=== PATIENT | female | born 1985 | race Caucasian/White ===

== ENCOUNTER 2016-10-27 11:49 | Emergency (ER) | payer OTHER ==
[2016-10-27 11:55] VITALS: TEMP 98
--- NOTE | 2016-10-27 12:12 | ED ---
URI HPI - General Chief Complaint: Upper Respiratory Infection Stated Complaint: congestion Time Seen by Provider: 10/27/16 11:56 Source: patient, RN notes reviewed Mode of arrival: ambulatory Limitations: no limitations - History of Present Illness Initial Comments: 31-year-old female presents emergency Department chief complaint sinus congestion, cough just discharged last few days. Patient states it's getting worse. Denies fever, chills. Patient states she does have seasonal ALLERGIES but states this feels worse. Denies any sick contacts. No [id number] cold cough and cold medications. Patient also complains of left leg swelling. She states has been present last week. She states she's had swelling in the past but this is worse. Patient denies any pleuritic chest pain denies any pain to her calf. - Related Data Home Medications Medication Instructions Recorded Confirmed Acetaminophen Tab [Tylenol] 650 mg PO Q6H PRN 04/09/16 10/27/16 Ibuprofen [Motrin] 400 mg PO Q6HR PRN 10/27/16 10/27/16 Loratadine [Claritin] 10 mg PO DAILY 10/27/16 10/27/16 Sodium Chloride [[place]] 1 spray EA NOSTRIL DAILY PRN 10/27/16 10/27/16 Allergies Allergy/AdvReac Type Severity Reaction Status Date / Time succinylcholine Allergy Unknown Verified 10/27/16 12:15 [Succinylcholine] Review of Systems ROS Statement: Those systems with pertinent positive or pertinent negative responses have been documented in the HPI. ROS Other: All systems not noted in ROS Statement are negative. Past Medical History Past Medical History: No Reported History Additional Past Medical History / Comment(s): MIGRAINE, BACK PAIN; POSSIBLE PROLAPSED BLADDER History of Any Multi-Drug Resistant Organisms: None Reported Additional Past Surgical History / Comment(s): MYRINGOTOMY, SINUS SURGERY, LEEP , COLPOSCOPY, OVARIAN CYST SURGERY Past Anesthesia/Blood Transfusion Reactions: Previous Problems w/ Anesthesia Additional Past Anesthesia/Blood Transfusion Reaction / Comment(s): reaction to succinylcholine Past Psychological History: No Psychological Hx Reported Smoking Status: Current every day smoker Past Alcohol Use History: Occasional Past Drug Use History: None Reported General Exam Limitations: no limitations General appearance: alert, in no apparent distress Head exam: Present: atraumatic, normocephalic, normal inspection ENT exam: Present: normal exam, mucous membranes moist. Absent: normal oropharynx (Postnasal drainage) Neck exam: Present: normal inspection. Absent: tenderness, meningismus, lymphadenopathy Respiratory exam: Present: normal lung sounds bilaterally (post). Absent: respiratory distress, wheezes, rales, rhonchi, stridor Cardiovascular Exam: Present: regular rate, normal rhythm, normal heart sounds. Absent: systolic murmur, diastolic murmur, rubs, gallop, clicks Extremities exam: Present: other (Left leg edema noted, pedal pulses equal bilaterally +2 minimal Tenderness) Neurological exam: Present: alert Skin exam: Present: warm, dry, intact, normal color. Absent: rash Course Vital Signs 10/27/16 10/27/16 11:52 12:03 Temperature 98 F Pulse Rate 100 Respiratory 16 16 Rate Blood Pressure 160/93 O2 Sat by Pulse 100 Oximetry Medical Decision Making - Medical Decision Making 31-year-old female presents emergency Department with chief complaint of cough and cold like symptoms, left leg swelling. There is no acute DVT on ultrasound. Patient will be advised to wear compression stockings. Patient has a of upper respiratory infection there is no signs for bacterial infection of this time. Patient be advised also takes something for her sinus congestion such as Sudafed and Claritin. Return parameters were discussed. Disposition Clinical Impression: Upper respiratory infection, Swelling of left lower extremity Disposition: HOME SELF-CARE Condition: Stable Instructions: Upper Respiratory Infection (ED) Additional Instructions: Were compression stockings as directed for your leg swelling. Take over-the- counter cough and cold medications for your upper extremity infection.Please return to the Emergency Department if symptoms worsen or any other concerns. Time of Disposition: 13:06
--- NOTE | 2016-10-27 12:20 | XR ---
EXAMINATION TYPE: XR chest 2V DATE OF EXAM: 10/27/2016 12:16 PM COMPARISON: NONE HISTORY: Chest pain and congestion for one day. TECHNIQUE: Frontal and lateral views of the chest are obtained. FINDINGS: There is no focal air space opacity, pleural effusion, or pneumothorax seen. The cardiac silhouette size is within normal limits. The osseous structures are intact. IMPRESSION: No acute cardiopulmonary process.
--- NOTE | 2016-10-27 13:10 | US ---
EXAMINATION TYPE: US venous doppler duplex LE LT DATE OF EXAM: 10/27/2016 12:58 PM COMPARISON: NONE CLINICAL HISTORY: Pain. SIDE PERFORMED: Left TECHNIQUE: The lower extremity deep venous system is examined utilizing real time linear array sonog zachary with graded compression, doppler sonography and color-flow sonography. VESSELS IMAGED: External Iliac Vein (EIV) Common Femoral Vein Deep Femoral Vein Greater Saphenous Vein * Femoral Vein Popliteal Vein Small Saphenous Vein * Proximal Calf Veins (* superficial vessels) No popliteal fossa lesion is seen. Left Leg: Negative for DVT IMPRESSION: THIS EXAMINATION IS NEGATIVE FOR DVT WITHIN THE LEFT LEG.
[2016-10-27 13:41] VITALS: BP 130/85; PULSE 78; RESP 18
== END 2016-10-27 13:40 | disposition home or self-care (01) ==
LOC: EC 11:49
DX: J06.9 Acute upper respiratory infection, unspecified (principal); M79.89 Other specified soft tissue disorders; F17.200 Nicotine dependence, unspecified, uncomplicated; Z88.8 Allergy status to other drugs, medicaments and biological substances; Z79.899 Other long term (current) drug therapy
CPT/HCPCS: 71020; 99284

== ENCOUNTER 2017-09-18 15:30 | Emergency (ER) | payer OTHER ==
[2017-09-18 17:20] LABS: Basophils % (A) 0 %; Eosinophils # (A) 0.1 k/uL (0-0.7); Eosinophils % (A) 1 %; HCT 38.3 % (34.0-46.0); HGB 12.5 gm/dL (11.4-16.0); Lymphocytes # (A) 2.1 k/uL (1.0-4.8); Lymphocytes % (A) 17 %; MCHC 32.6 g/dL (31.0-37.0); MCV 98.1 fL (80.0-100.0); Mean Platelet Volume 7.9; Monocytes # (A) 0.5 k/uL (0-1.0); Monocytes % (A) 4 %; Neutrophils % (A) 78 %; Platelet Count 341 k/uL (150-450); RDW 12.2 % (11.5-15.5); WBC 12.9 k/uL (3.8-10.6)
--- NOTE | 2017-09-18 17:33 | ED ---
Skin/Abscess/FB HPI - General Chief complaint: Skin/Abscess/Foreign Body Stated complaint: Foot pain Time Seen by Provider: 09/18/17 16:27 Source: patient, RN notes reviewed Mode of arrival: ambulatory Limitations: no limitations - History of Present Illness Initial comments: 32-year-old female presents emergency Department chief complaint of redness, swelling and pain to her left leg. Patient states that she had a blister opened up 2 weeks ago but states last few days she has noticed increased redness swelling and discomfort. She states that her left calf to her left foot region has swelling there is severe redness to the blister on the back of her heel. She states that she called her doctor and has an appointment next week and was given a prescription over the phone though when filling the prescription the pharmacist recommends patient go to the Emergency department. Denies any prior history of DVT. Denies any chest pain or shortness of breath. No known fevers or chills. - Related Data Home Medications Medication Instructions Recorded Confirmed Topiramate [Topamax] 50 mg PO BID 06/01/17 09/18/17 Ibuprofen [Motrin Ib] 800 mg PO Q6H PRN 09/18/17 09/18/17 Previous Rx's Medication Instructions Recorded Cephalexin [Keflex] 500 mg PO Q6HR #40 cap 09/18/17 Allergies Allergy/AdvReac Type Severity Reaction Status Date / Time pineapple Allergy Unknown Verified 09/18/17 16:30 succinylcholine Allergy Unknown Verified 09/18/17 16:30 [Succinylcholine] Review of Systems ROS Statement: Those systems with pertinent positive or pertinent negative responses have been documented in the HPI. ROS Other: All systems not noted in ROS Statement are negative. Past Medical History Past Medical History: No Reported History Additional Past Medical History / Comment(s): MIGRAINE, BACK PAIN; POSSIBLE PROLAPSED BLADDER, ectopic History of Any Multi-Drug Resistant Organisms: None Reported Past Surgical History: Ear Surgery, Tubal Ligation Additional Past Surgical History / Comment(s): MYRINGOTOMY, SINUS SURGERY, LEEP , OVARIAN CYST SURGERY, Past Anesthesia/Blood Transfusion Reactions: Previous Problems w/ Anesthesia Additional Past Anesthesia/Blood Transfusion Reaction / Comment(s): reaction to succinylcholine Past Psychological History: No Psychological Hx Reported Smoking Status: Current every day smoker Past Alcohol Use History: Occasional Past Drug Use History: None Reported General Exam Limitations: no limitations General appearance: alert, in no apparent distress Head exam: Present: atraumatic, normocephalic, normal inspection Respiratory exam: Present: normal lung sounds bilaterally. Absent: respiratory distress, wheezes, rales, rhonchi, stridor Cardiovascular Exam: Present: regular rate, normal rhythm, normal heart sounds. Absent: systolic murmur, diastolic murmur, rubs, gallop, clicks Extremities exam: Present: other (There is swelling noted of the left leg, pedal pulses equal bilaterally, there is moderate swelling primarily of the left foot there is erythema around open wound of her left heel that extends to her foot and distal leg region) Skin exam: Present: warm, dry Course Vital Signs 09/18/17 09/18/17 16:14 18:18 Temperature 98.3 F Pulse Rate 99 87 Respiratory 16 18 Rate Blood Pressure 168/88 120/80 O2 Sat by Pulse 100 97 Oximetry Medical Decision Making - Medical Decision Making 32-year-old female presented emergency Department chief complaint of left leg swelling, redness. Patient's symptoms started last few days with redness and swelling. Patient patient does have minimal leukocytosis no evidence of osteomyelitis. Patient we treated for cellulitis at this time is DVT is negative. Patient was given IV Imitrex emergency Department discharge on Keflex. Return parameters were discussed. - Lab Data Result diagrams: 09/18/17 17:00 09/18/17 17:00 Lab Results 09/18/17 09/18/17 09/18/17 Range/Units 17:00 17:00 17:00 WBC 12.9 H (3.8-10.6) k/uL RBC 3.90 (3.80-5.40) m/uL Hgb 12.5 (11.4-16.0) gm/dL Hct 38.3 (34.0-46.0) % MCV 98.1 (80.0-100.0) fL MCH 32.0 (25.0-35.0) pg MCHC 32.6 (31.0-37.0) g/dL RDW 12.2 (11.5-15.5) % Plt Count 341 (150-450) k/uL Neutrophils % 78 % Lymphocytes % 17 % Monocytes % 4 % Eosinophils % 1 % Basophils % 0 % Neutrophils # 10.0 H (1.3-7.7) k/uL Lymphocytes # 2.1 (1.0-4.8) k/uL Monocytes # 0.5 (0-1.0) k/uL Eosinophils # 0.1 (0-0.7) k/uL Basophils # 0.0 (0-0.2) k/uL Sodium 141 (137-145) mmol/L Potassium 3.6 (3.5-5.1) mmol/L Chloride 108 H (98-107) mmol/L Carbon Dioxide 21 L (22-30) mmol/L Anion Gap 12 mmol/L BUN 14 (7-17) mg/dL Creatinine 0.70 (0.52-1.04) mg/dL Est GFR (CKD-EPI)AfAm >90 (>60 ml/min/1.73 sqM) Est GFR (CKD-EPI)NonAf >90 (>60 ml/min/1.73 sqM) Glucose 77 (74-99) mg/dL Plasma Lactic Acid Luis 0.5 L (0.7-2.0) mmol/L Calcium 9.3 (8.4-10.2) mg/dL Total Bilirubin 0.3 (0.2-1.3) mg/dL AST 16 (14-36) U/L ALT 23 (9-52) U/L Alkaline Phosphatase 47 (38-126) U/L C-Reactive Protein 59.3 H (<10.0) mg/L Total Protein 6.9 (6.3-8.2) g/dL Albumin 4.2 (3.5-5.0) g/dL Disposition Clinical Impression: Cellulitis Disposition: HOME SELF-CARE Condition: Stable Instructions: Cellulitis (ED) Additional Instructions: Please return to the Emergency Department if symptoms worsen or any other concerns. Prescriptions: Cephalexin [Keflex] 500 mg PO Q6HR #40 cap Referrals: Lucero Hugo MD [Primary Care Provider] - 1-2 days Time of Disposition: 19:03
[2017-09-18 17:39] LABS: ALT 23 U/L (9-52); AST 16 U/L (14-36); Albumin 4.2 g/dL (3.5-5.0); Alkaline Phosphatase 47 U/L (38-126); Anion Gap 12 mmol/L; Blood Urea Nitrogen 14 mg/dL (7-17); C Reactive Protein 59.3 mg/L (<10.0); Calcium 9.3 mg/dL (8.4-10.2); Carbon Dioxide 21 mmol/L (22-30); Chloride 108 mmol/L (98-107); Glucose 77 mg/dL (74-99); Potassium 3.6 mmol/L (3.5-5.1); Sodium 141 mmol/L (137-145); Total Bilirubin 0.3 mg/dL (0.2-1.3); Total Protein 6.9 g/dL (6.3-8.2)
--- NOTE | 2017-09-18 17:46 | XR ---
PROCEDURE: XR ankle complete LT - 3V DATE AND TIME: 09/18/2017 5:34 PM REFERRING PHYSICIAN: Domingo Chang CLINICAL INDICATION: PHH, Pain TECHNIQUE: Department protocol. COMPARISON: None FINDINGS: Bones and joints are unremarkable. Soft tissue swelling is noted laterally. IMPRESSION: Negative for fracture or malalignment.
[2017-09-18] MEDS ORDERED: HYDROcodone/APAP 5-325MG 1 EACH TAB PO STA (18:12)
[2017-09-18 18:19] VITALS: RESP 18
--- NOTE | 2017-09-18 18:43 | US ---
EXAMINATION TYPE: US venous doppler duplex LE LT DATE OF EXAM: 09/18/2017 6:08 PM COMPARISON: NONE CLINICAL HISTORY: Pain. Edema and pain left foot. Infection left foot from a blister for 2-3 days SIDE PERFORMED: Left TECHNIQUE: The lower extremity deep venous system is examined utilizing real time linear array sonog zachary with graded compression, doppler sonography and color-flow sonography. VESSELS IMAGED: External Iliac Vein (EIV) Common Femoral Vein Deep Femoral Vein Greater Saphenous Vein * Femoral Vein Popliteal Vein Small Saphenous Vein * Proximal Calf Veins (* superficial vessels) FINDINGS: Grayscale, color doppler, spectral doppler imaging performed of the deep veins of the lower extremiti es. There is normal flow, compressibility, vascular waveforms. IMPRESSION: NEGATIVE FOR DVT LEFT LOWER EXTREMITY.
[2017-09-18] MEDS ORDERED: ceFAZolin IN SWFI 2 GM/20 ML SYRINGE IVP STA (19:01)
[2017-09-18 19:48] VITALS: BP 128/80; PULSE 88; TEMP 98.5
== END 2017-09-18 19:50 | disposition home or self-care (01) ==
LOC: EC 15:30
DX: L03.116 Cellulitis of left lower limb (principal); F17.200 Nicotine dependence, unspecified, uncomplicated; Z86.69 Personal history of other diseases of the nervous system and sense organs; Z79.899 Other long term (current) drug therapy; Z91.018 Allergy to other foods; Z88.4 Allergy status to anesthetic agent
CPT/HCPCS: 99284; 96374; 36415; 80053; 83605; 85025; 86140; 87040; 87070; 87205; 87077; 87186; 73610; 93971; J0690

== ENCOUNTER → 2017-10-08 | Outpatient (CLI) | payer OTHER | END | disposition home or self-care (01) | LOC: RADUSWWP 13:25 | PROVIDERS: ATTEND Internal Medicine | DX: M79.605 Pain in left leg (principal) | CPT/HCPCS: 93923 ==

== ENCOUNTER → 2018-03-29 | Outpatient (CLI) | payer OTHER ==
--- NOTE | 2018-03-29 15:49 | XR ---
EXAMINATION TYPE: XR chest 2V DATE OF EXAM: 03/29/2018 COMPARISON: 10/27/2016 HISTORY: Chest pain TECHNIQUE: Frontal and lateral views of the chest are obtained. FINDINGS: There is no focal air space opacity. No evidence for pneumothorax. No pleural effusion. The cardiac silhouette size is within normal limits. The osseous structures are grossly intact. IMPRESSION: 1. No acute cardiopulmonary process.
== END | disposition home or self-care (01) ==
LOC: RADXRYALE 15:23
PROVIDERS: ATTEND Internal Medicine
DX: J20.9 Acute bronchitis, unspecified (principal)
CPT/HCPCS: 71046

== ENCOUNTER 2018-04-08 09:46 | Emergency (ER) | payer OTHER ==
[2018-04-08 09:56] VITALS: RESP 18
[2018-04-08] MEDS ORDERED: SODIUM CHLORIDE 0.9% 500 ML IV STA (11:03)
[2018-04-08] MEDS ORDERED: ONDANSETRON 4 MG/2 ML VIAL IVP STA (11:03)
--- NOTE | 2018-04-08 11:11 | ED ---
General Adult HPI - General Chief complaint: Abdominal Pain Stated complaint: Abd pain Source: patient Mode of arrival: ambulatory Limitations: no limitations - History of Present Illness Initial comments: Dictation was produced using [employer] dictation software. please excuse any grammatical, word or spelling errors. Chief Complaint: 32-year-old female past medical history of irregular menstrual cycles, migraine headaches presents with bilateral suprapubic pain. History of Present Illness: Patient is a 32-year-old female. She has a past medical history of ectopic requiring expiratory laparotomy. She presents today with 2 days of bilateral suprapubic pain. She states the pain is worse on her left. Patient has nausea but no vomiting. She states that she is having regular bowel movements. Patient has a past medical history of ectopic . Denies any history of STD. She has had a ablation procedure for her irregular periods. Denies any constitutional symptoms. Patient is unsure if she is or not. Pain is not exacerbated with certain decubitus positions. The ROS documented in this emergency department record has been reviewed and confirmed by me. Those systems with pertinent positive or negative responses have been documented in the HPI. All other systems are other negative and/or noncontributory. - Related Data Home Medications Medication Instructions Recorded Confirmed Topiramate [Topamax] 100 mg PO BID 04/08/18 04/08/18 Previous Rx's Medication Instructions Recorded RX: traMADol HCL [Ultram] 50 mg PO Q6HR PRN 3 Days #12 tab 04/08/18 Allergies Allergy/AdvReac Type Severity Reaction Status Date / Time pineapple Allergy Unknown Verified 04/08/18 11:33 succinylcholine Allergy Unknown Verified 04/08/18 11:33 [Succinylcholine] Review of Systems ROS Statement: Those systems with pertinent positive or pertinent negative responses have been documented in the HPI. ROS Other: All systems not noted in ROS Statement are negative. Past Medical History Past Medical History: No Reported History Additional Past Medical History / Comment(s): MIGRAINE, BACK PAIN; POSSIBLE PROLAPSED BLADDER, ectopic History of Any Multi-Drug Resistant Organisms: MRSA Date of last positivie culture/infection: 10/2017 MDRO Source:: left leg wound Past Surgical History: Ear Surgery, Tubal Ligation Additional Past Surgical History / Comment(s): MYRINGOTOMY, SINUS SURGERY, LEEP , OVARIAN CYST SURGERY, Past Anesthesia/Blood Transfusion Reactions: Previous Problems w/ Anesthesia Additional Past Anesthesia/Blood Transfusion Reaction / Comment(s): reaction to succinylcholine Past Psychological History: No Psychological Hx Reported Smoking Status: Current every day smoker Past Alcohol Use History: Daily Past Drug Use History: None Reported General Exam - General Exam Comments Initial Comments: PHYSICAL EXAM: General Impression: Alert and oriented x3, not in acute distress HEENT: Normocephalic atraumatic, extra-ocular movements intact, pupils equal and reactive to light bilaterally, mucous membranes moist. Cardiovascular: Heart regular rate and rhythm, S1&S2 audible, no murmurs, rubs or gallops Chest: Lungs clear to auscultation bilaterally, no rhonchi, no wheeze, no rales Abdomen: Bowel sounds present, abdomen soft, mild tenderness to the bilateral lower quadrants, non-distended, no organomegaly Musculoskeletal: Pulses present and equal in all extremities, no peripheral edema Motor: Power 5/5 bilaterally, no focal deficits noted Neurological: CN II-XII grossly intact, no focal motor or sensory deficits noted Skin: Intact with no visualized rashes Psych: Normal affect and mood Limitations: no limitations Course Vital Signs 04/08/18 09:53 Temperature 98.2 F Pulse Rate 106 H Respiratory 18 Rate Blood Pressure 157/103 O2 Sat by Pulse 100 Oximetry Medical Decision Making - Medical Decision Making 32-year-old female with past medical history of ectopic , ovarian cyst, uterine ablation procedure presents with pelvic pain. Vital signs shows tachycardia 106, rest vital signs within acceptable limits. Lab data evaluation obtained. Mild leukocytosis of 11.6. Metabolic panel shows no acute processes. Urinalysis is negative. Urine is negative. Transvaginal ultrasound was obtained showing 4 cm complex left ovarian cyst. Pelvic exam shows mild adnexal tenderness to the left adnexa. No cervical motion or right adnexal tenderness. Patient advised to follow-up follow-up with enterprise software developer upon discharge. Patient given prescription for tramadol for her pain symptoms. Patient understandable agreeable to plan. - Lab Data Result diagrams: 04/08/18 12:04 04/08/18 12:04 Lab Results 04/08/18 04/08/18 04/08/18 Range/Units 12:04 12:04 12:04 WBC 11.6 H (3.8-10.6) k/uL RBC 4.06 (3.80-5.40) m/uL Hgb 13.8 (11.4-16.0) gm/dL Hct 40.6 (34.0-46.0) % MCV 100.0 (80.0-100.0) fL MCH 33.9 (25.0-35.0) pg MCHC 33.9 (31.0-37.0) g/dL RDW 13.0 (11.5-15.5) % Plt Count 411 (150-450) k/uL Neutrophils % 66 % Lymphocytes % 25 % Monocytes % 6 % Eosinophils % 2 % Basophils % 0 % Neutrophils # 7.6 (1.3-7.7) k/uL Lymphocytes # 2.9 (1.0-4.8) k/uL Monocytes # 0.7 (0-1.0) k/uL Eosinophils # 0.2 (0-0.7) k/uL Basophils # 0.1 (0-0.2) k/uL Sodium 141 (137-145) mmol/L Potassium 4.2 (3.5-5.1) mmol/L Chloride 110 H (98-107) mmol/L Carbon Dioxide 23 (22-30) mmol/L Anion Gap 8 mmol/L BUN 13 (7-17) mg/dL Creatinine 0.72 (0.52-1.04) mg/dL Est GFR (CKD-EPI)AfAm >90 (>60 ml/min/1.73 sqM) Est GFR (CKD-EPI)NonAf >90 (>60 ml/min/1.73 sqM) Glucose 91 (74-99) mg/dL Calcium 9.3 (8.4-10.2) mg/dL Total Bilirubin 0.4 (0.2-1.3) mg/dL AST 24 (14-36) U/L ALT 26 (9-52) U/L Alkaline Phosphatase 41 (38-126) U/L Total Protein 7.1 (6.3-8.2) g/dL Albumin 4.3 (3.5-5.0) g/dL Lipase 201 (23-300) U/L Urine Color Urine Appearance (Clear) Urine pH (5.0-8.0) Ur Specific [place] (1.001-1.035) Urine Protein (Negative) Urine Glucose (UA) (Negative) Urine Ketones (Negative) Urine Blood (Negative) Urine Nitrite (Negative) Urine Bilirubin (Negative) Urine Urobilinogen (<2.0) mg/dL Ur Leukocyte Esterase (Negative) Urine HCG, Qual Not Detected (Not Detectd) 04/08/18 Range/Units 12:04 WBC (3.8-10.6) k/uL RBC (3.80-5.40) m/uL Hgb (11.4-16.0) gm/dL Hct (34.0-46.0) % MCV (80.0-100.0) fL MCH (25.0-35.0) pg MCHC (31.0-37.0) g/dL RDW (11.5-15.5) % Plt Count (150-450) k/uL Neutrophils % % Lymphocytes % % Monocytes % % Eosinophils % % Basophils % % Neutrophils # (1.3-7.7) k/uL Lymphocytes # (1.0-4.8) k/uL Monocytes # (0-1.0) k/uL Eosinophils # (0-0.7) k/uL Basophils # (0-0.2) k/uL Sodium (137-145) mmol/L Potassium (3.5-5.1) mmol/L Chloride (98-107) mmol/L Carbon Dioxide (22-30) mmol/L Anion Gap mmol/L BUN (7-17) mg/dL Creatinine (0.52-1.04) mg/dL Est GFR (CKD-EPI)AfAm (>60 ml/min/1.73 sqM) Est GFR (CKD-EPI)NonAf (>60 ml/min/1.73 sqM) Glucose (74-99) mg/dL Calcium (8.4-10.2) mg/dL Total Bilirubin (0.2-1.3) mg/dL AST (14-36) U/L ALT (9-52) U/L Alkaline Phosphatase (38-126) U/L Total Protein (6.3-8.2) g/dL Albumin (3.5-5.0) g/dL Lipase (23-300) U/L Urine Color Light Yellow Urine Appearance Clear (Clear) Urine pH 7.0 (5.0-8.0) Ur Specific [place] 1.008 (1.001-1.035) Urine Protein Negative (Negative) Urine Glucose (UA) Negative (Negative) Urine Ketones Negative (Negative) Urine Blood Negative (Negative) Urine Nitrite Negative (Negative) Urine Bilirubin Negative (Negative) Urine Urobilinogen <2.0 (<2.0) mg/dL Ur Leukocyte Esterase Negative (Negative) Urine HCG, Qual (Not Detectd) Disposition Clinical Impression: Ovarian cyst Disposition: HOME SELF-CARE Condition: Good Prescriptions: RX: traMADol HCL [Ultram] 50 mg PO Q6HR PRN 3 Days #12 tab PRN Reason: Pain Is patient prescribed a controlled substance at d/c from ED?: Yes If prescribed controlled substance>3 days was MAPS reviewed?: Prescribed <3 Days Referrals: Lucero Hugo MD [Primary Care Provider] - 1-2 days Time of Disposition: 14:13
[2018-04-08] MEDS ORDERED: MORPHINE SULFATE 4 MG/ML SYRINGE IVP STA (12:06)
[2018-04-08 12:29] LABS: Basophils # (A) 0.1 k/uL (0-0.2); Basophils % (A) 0 %; Eosinophils # (A) 0.2 k/uL (0-0.7); Eosinophils % (A) 2 %; HCT 40.6 % (34.0-46.0); HGB 13.8 gm/dL (11.4-16.0); Lymphocytes # (A) 2.9 k/uL (1.0-4.8); Lymphocytes % (A) 25 %; MCH 33.9 pg (25.0-35.0); MCHC 33.9 g/dL (31.0-37.0); Mean Platelet Volume 7.2; Monocytes # (A) 0.7 k/uL (0-1.0); Monocytes % (A) 6 %; Neutrophils # (A) 7.6 k/uL (1.3-7.7); Neutrophils % (A) 66 %; Platelet Count 411 k/uL (150-450); RBC 4.06 m/uL (3.80-5.40); WBC 11.6 k/uL (3.8-10.6)
[2018-04-08 12:37] LABS: ALT 26 U/L (9-52); AST 24 U/L (14-36); Albumin 4.3 g/dL (3.5-5.0); Alkaline Phosphatase 41 U/L (38-126); Anion Gap 8 mmol/L; Blood Urea Nitrogen 13 mg/dL (7-17); Calcium 9.3 mg/dL (8.4-10.2); Carbon Dioxide 23 mmol/L (22-30); Chloride 110 mmol/L (98-107); Glucose 91 mg/dL (74-99); Lipase 201 U/L (23-300); Potassium 4.2 mmol/L (3.5-5.1); Sodium 141 mmol/L (137-145); Total Bilirubin 0.4 mg/dL (0.2-1.3); Total Protein 7.1 g/dL (6.3-8.2)
[2018-04-08 12:38] LABS: Appearance,Urine Clear (Clear); Bilirubin,Urine Negative (Negative); Blood,Urine Negative (Negative); Color,Urine Light Yellow; Glucose,Urine (UA) Negative (Negative); Ketones,Urine Negative (Negative); Leukocyte Esterase,Urine Negative (Negative); Nitrite,Urine Negative (Negative); Protein,Urine Negative (Negative); Specific Gravity,Urine 1.008 (1.001-1.035); Urobilinogen,Urine <2.0 mg/dL (<2.0)
--- NOTE | 2018-04-08 13:27 | US ---
EXAMINATION TYPE: US transvaginal DATE OF EXAM: 04/08/2018 COMPARISON: US 2017 CLINICAL HISTORY: Pain. Left pelvic and back pain and spotting x couple weeks, 3, para 2, ect opic 1, history of ovarian cysts and ectopic. TECHNIQUE: Transvaginal ER exam. Date of LMP: Unknown EXAM MEASUREMENTS: Uterus: 7.1 x 3.5 x 3.9 cm Endometrial Stripe: 0.6 cm Right Ovary: 2.5 x 2.2 x 3.3 cm Left Ovary: 4.2 x 2.8 x 2.9 cm 1. Uterus: anteverted, heterogeneous 2. Endometrium: wnl 3. Right Ovary: multiple follicles 4. Left Ovary: multiple follicles, 2.9 x 2.3 x 2.4 cm complex cyst with internal septations Spectral, color and waveform doppler imaging shows good arterial and venous flow within the left ov gerardo and good arterial flow within the right ovary, unable to obtain venous flow with the right ovary. 5. Bilateral Adnexa: wnl 6. Posterior cul-de-sac: small amount of free fluid IMPRESSION: Complex left ovarian cyst likely representing a hemorrhagic cyst in a premenopausal femal e. Short-term follow-up in 3 menstrual cycles is recommended to ensure resolution. No current evidenc e of ovarian torsion.
[2018-04-08 14:25] VITALS: BP 145/91; PULSE 78; TEMP 97.4
[2018-04-09 15:36] LABS: C. trachomatis,PCR Negative (Neg,Equiv); Chlamydia trachomatis Source Cervix; N. gonorrhoeae,PCR Negative (Neg,Equiv); Neisseria Source Cervix
== END 2018-04-08 14:25 | disposition home or self-care (01) ==
LOC: EC 09:46
DX: N83.202 Unspecified ovarian cyst, left side (principal); D72.829 Elevated white blood cell count, unspecified; R00.0 Tachycardia, unspecified; F17.200 Nicotine dependence, unspecified, uncomplicated; Z86.14 Personal history of Methicillin resistant Staphylococcus aureus infection; Z98.51 Tubal ligation status; Z98.890 Other specified postprocedural states; Z79.899 Other long term (current) drug therapy; Z88.8 Allergy status to other drugs, medicaments and biological substances; Z91.018 Allergy to other foods
CPT/HCPCS: 36415; 80053; 83690; 85025; 81003; 81025; 87491; 87591; 87086; 93975; 76830; 99284; 96374; 96375; 96361 ×2; J2270; J2405

== ENCOUNTER → 2018-05-03 | Outpatient (CLI) | payer OTHER ==
--- NOTE | 2018-05-04 08:30 | US ---
EXAMINATION TYPE: US pelvis complete transvag DATE OF EXAM: 05/03/2018 COMPARISON: US 04/08/2018 CLINICAL HISTORY: R10.2 Pelvic pain N83.0 Previous left ovarian cyst. TECHNIQUE: . Transabdominal sonographic images of the pelvis were acquired. Transvaginal sonographi c images were medically necessary to better assess the following anatomy: Ovaries Date of LMP: 2-3 years ago EXAM MEASUREMENTS: Uterus: 6.8 x 3.4 x 3.6 cm Endometrial Stripe: 0.4 cm Right Ovary: 3.1 x 2.7 x 2.1 cm Left Ovary: 2.2 x 1.9 x 1.2 cm 1. Uterus: Anteverted Heterogeneous myometrium 2. Endometrium: wnl 3. Right Ovary: Simple appearing Cystic area visualized measuring 1.9 x 1.7 x 2.2 cm 4. Left Ovary: Complex area visualized measuring 1.6 x 0.5 x 1.3 cm. This previously measured 2.9 x 2.3 x 2.4 on 04/08/2018. 5. Bilateral Adnexa: wnl 6. Posterior cul-de-sac: wnl IMPRESSION: 1. Right ovarian cyst. Follow-up exam in 6 weeks following the next normal menstrual period is recomm ended. 2. There may be an involuting cyst on the left ovary. This is diminished from the comparison Continue d follow-up can be performed.
== END | disposition home or self-care (01) ==
LOC: RADUSWWP 16:06
PROVIDERS: ATTEND Obstetrics & Gynecology
DX: N83.201 Unspecified ovarian cyst, right side (principal)
CPT/HCPCS: 76830; 76856

== ENCOUNTER → 2018-06-07 | Outpatient (CLI) | payer OTHER ==
[2018-06-07 14:38] LABS: Basophils # (A) 0.1 k/uL (0-0.2); Basophils % (A) 1 %; Eosinophils # (A) 0.3 k/uL (0-0.7); Eosinophils % (A) 4 %; HGB 13.2 gm/dL (11.4-16.0); Lymphocytes # (A) 2.8 k/uL (1.0-4.8); Lymphocytes % (A) 36 %; MCH 33.2 pg (25.0-35.0); MCHC 32.2 g/dL (31.0-37.0); Macrocytosis Slight; Mean Platelet Volume 7.1; Monocytes # (A) 0.4 k/uL (0-1.0); Monocytes % (A) 6 %; Neutrophils # (A) 3.8 k/uL (1.3-7.7); Neutrophils % (A) 51 %; Platelet Count 416 k/uL (150-450); RBC 3.98 m/uL (3.80-5.40); RDW 12.1 % (11.5-15.5); WBC 7.6 k/uL (3.8-10.6)
[2018-06-07 14:47] LABS: Calcium 9.1 mg/dL (8.4-10.2); Potassium 4.2 mmol/L (3.5-5.1)
== END | disposition home or self-care (01) ==
LOC: LABPAT 13:00
PROVIDERS: ATTEND Obstetrics & Gynecology
DX: Z01.812 Encounter for preprocedural laboratory examination (principal)
CPT/HCPCS: 36415; 80048; 85025

== ENCOUNTER 2018-06-17 07:40 | Day surgery (SDC) | payer OTHER ==
[2018-06-15 09:37] VITALS: BMI 24.7
--- NOTE | 2018-06-16 15:43 | P.HPOB ---
History of Present Illness H&P Date: 06/16/18 Chief Complaint: Pelvic pain: Post-ablative syndrome Patient is a [age] female who has consistent and persistent pain due to previous NovaSure procedure. She also is noted to have a ovarian cyst that we have been following, however this does not appear to be where her pain is coming from. Cyst on last evaluation was noted to be complex but only 1.6 x 2.9 cm. She is scheduled for a robotic-assisted laparoscopic hysterectomy with possible JASPREET possible BSO. At this time evaluation of the ovary will be done intraoperatively to decide whether or not it will need to be removed. Risks/ benefits/alternatives to this procedure were discussed with the patient in detail and all questions were answered for her prior to proceeding to the operating room. On physical exam vital signs are stable and afebrile, heart regular, lungs clear, extremities are without pain. Abdomen is soft and nontender. Positive bowel sounds are noted. Past Medical History Past Medical History: No Reported History Additional Past Medical History / Comment(s): MIGRAINES, BACK PAIN. History of Any Multi-Drug Resistant Organisms: MRSA Date of last positivie culture/infection: 08/2017 MDRO Source:: left leg wound Past Surgical History: Ear Surgery, Tubal Ligation Additional Past Surgical History / Comment(s): MYRINGOTOMY, SINUS SURGERY, LEEP , OVARIAN CYST SURGERY. Past Anesthesia/Blood Transfusion Reactions: Previous Problems w/ Anesthesia, Family History of Problems w/ Anesthesia Additional Past Anesthesia/Blood Transfusion Reaction / Comment(s): Grandfather had reaction to succinylcholine. Patient was tested at 1-2 yrs of age prior to Myringotomy surgery and was told she should never receive succinylcholine. Past Psychological History: No Psychological Hx Reported Smoking Status: Current every day smoker Past Alcohol Use History: Occasional Additional Past Alcohol Use History / Comment(s): has been smoking <1/2 PPD since 17 yrs of age. Past Drug Use History: None Reported - Past Family History Mother Family Medical History: No Reported History Medications and Allergies Home Medications Medication Instructions Recorded Confirmed Type Topiramate [Topamax] 100 mg PO BID 04/08/18 06/15/18 History Allergies Allergy/AdvReac Type Severity Reaction Status Date / Time pineapple Allergy Unknown Verified 06/15/18 09:22 succinylcholine Allergy Unknown Verified 06/15/18 09:22 [Succinylcholine] Exam Osteopathic Statement: *. No significant issues noted on an osteopathic structural exam other than those noted in the History and Physical/Consult. - OBG Physical Exam Breast: both: normal (no masses) Abdomen: bowel sounds normal, no diffuse tenderness, no bruit present, no guarding noted, no hepatomegaly, no splenomegaly, no mass Vulva: both: normal Vagina: normal moisture, no discharge Cervix: no lesion, no discharge Uterus: normal size, normal contour Adnexa: both: normal Anus/Rectum: normal perianal skin, no rectal mass, no hemorrhoids, heme negative
[~2018-06-17 07:40] MED LIST: DEXAMETHASONE SOD PHOSPHATE 10 MG/ML 1 ML VIAL IV ONE; LIDOCAINE 1% 20 ML VIAL (10MG/ML) FOR IV START INTRADERMA PRN; MIDAZOLAM (PF) 2 MG/2 ML VIAL IV PRN; ceFAZolin IN SWFI 2 GM/20 ML SYRINGE IVP ONE; fentaNYL (PF) 50 MCG/ML 2 ML AMP IV PRN
[2018-06-17] MEDS: LACTATED RINGERS 1,000 ML IV SCH ×2 (08:25→15:18)
[2018-06-17] MEDS: ONDANSETRON 4 MG/2 ML VIAL IVP ONE ×2 (08:31→11:06)
[2018-06-17] MEDS ORDERED: fentaNYL (PF) 50 MCG/ML 2 ML AMP ONE (09:10)
[2018-06-17] MEDS ORDERED: HYDROmorphone (PF) 1 MG/ML ONE (09:10)
[2018-06-17] MEDS ORDERED: ROCURONIUM BROMIDE 10 MG/ML 10 ML VIAL IV ONE (09:10)
[2018-06-17] MEDS ORDERED: MIDAZOLAM 2 MG/2 ML VIAL ONE (09:10)
[2018-06-17] MEDS ORDERED: LIDOCAINE 1% INJ 10MG/ML (20 ML MDV) ONE (09:10)
[2018-06-17] MEDS ORDERED: PROPOFOL 10 MG/ML 20 ML VIAL IV ONE (09:10)
[2018-06-17] MEDS ORDERED: NEOSTIGMINE 1 MG/ML 10 ML VIAL ONE (09:10)
[2018-06-17] MEDS ORDERED: GLYCOPYRROLATE 0.2 MG/ML 2 ML VIAL ONE (09:10)
[2018-06-17] MEDS ORDERED: BUPIVACAINE (PF) 0.25% 30 ML VIAL SQ ONE ×2 (09:57)
[2018-06-17] MEDS ORDERED: SIMETHICONE 80 MG CHEWABLE PO PRN (10:27)
[2018-06-17] MEDS ORDERED: Acetaminophen-Codeine 300-30mg TAB PO PRN (10:27)
[2018-06-17] MEDS ORDERED: ONDANSETRON 4 MG/2 ML VIAL IVP PRN (10:27)
--- NOTE | 2018-06-17 10:34 | P.OP ---
Date of Procedure: 06/17/18 Preoperative Diagnosis: Pelvic pain: Post-ablative syndrome Postoperative Diagnosis: Same with functional cysts on both ovaries Procedure(s) Performed: Robotic-assisted laparoscopic hysterectomy with bilateral ovarian cystotomy Anesthesia: LORETA Surgeon: Gary Lopez Senior Mechanical Project Manager #1: Shelly Murdock Estimated Blood Loss (ml): 5 IV fluids (ml): 500 Urine output (ml): 200 Pathology: other (Uterus and cervix) Condition: stable Disposition: floor Operative Findings: Bilateral ovarian cysts otherwise normal pelvic anatomy Description of Procedure: Patient was taken to the operating suite where a general anesthetic was found to be adequate. She was prepped and draped in the normal sterile fashion and placed in the dorsal lithotomy position. Initially a weighted speculum was inserted into the vagina and the anterior lip of the cervix was identified and grasped with a single-tooth tenaculum. Uterus was then sounded and a Flor manipulator was inserted without difficulty with a 2.5 cm cup and a 8 cm uterine manipulator. Sutures had previously been placed at 3 and 9 to assist with removal of uterus. Cazares catheter was then placed closer changed and attention was turned to the abdominal portion procedure where 2 mL of quarter percent Marcaine was injected periumbilically. Through this injected anesthetic a 5 mm skin incision was made and through this incision under direct visualization with an optical trocar and sleeve the camera was inserted. Once peritoneal placement was assured gas was allowed to fully insufflate the abdomen and patient was then placed in steep Trendelenburg position. 2 lateral ports were placed proximally 8-10 cm lateral to the umbilicus 2 cm above the ASIS and 2 cm medial to it these were inserted with transillumination and under direct visualization. Once these ports were placed a fourth port was placed between the left lateral and the medial port through a 1 cm incision. Left scopic port was exchanged for a robotic camera port and laparoscopic equipment was removed from the operative field and the robot was brought in and docked. Once fully docked a scissor was placed in the one arm and [place] grasper in the 2 arm and at this point, I broke scrub and went to the console. Visualization of the pelvis was then noted, perforation of the uterus due to prior ablation was noted. Uterus was then elevated and tipped to the right- hand side and the left utero-ovarian layer was identified identified cauterized cut and transected. Through the mesosalpinx tissues tissue was cauterized and cut all the way to the round ligament. Round ligament was then cauterized and then transected and sterilization of the vascular down left side of the uterus was done. Vast vessels were then cauterized and uterus was retroverted and the bladder flap was identified. Undermining the bladder flap with [place] was then done and then the tissue was incised this system was carried across the face of the uterus and the bladder was then dissected bluntly out of the operative field. Once this was accomplished the right side of the uterus was developed similarly. Once this was fully accomplished uterus was retroverted and the Flor manipulator balloon was inflated. Anterior colpotomy was then made. And then this colpotomy was followed around in a counterclockwise fashion cheating head when necessary to maintain excellent hemostasis. Once 360 was covered the uterus is brought into the vagina to maintain the pneumoperitoneum. Pelvis was then irrigated no bleeding is noted on any of the pedicles therefore instruments were exchanged for a Gilberto grasper and make suture cut and 2 OB lock suture was used to close the vaginal cuff in a running fashion. Once this was completed pelvis was again irrigated no bleeding is noted therefore instruments are removed and gas was allowed to expel from the abdomen. 5 deep breaths were provided during this process. Dr. Murdock close the incision subcuticularly with 4-0 Vicryl and the remaining 8 mL of quarter percent Marcaine was then injected around the incisions. Concurrently I did a cystoscopy good flow was noted from both ureteral jets. Sponge, lap, needle counts were all correct 2. Patient was then taken to the recovery room in stable and satisfactory condition.
[2018-06-17] MEDS: KETOROLAC 30 MG/ML 1 ML VIAL IVP PRN ×2 (10:46→17:19)
[2018-06-17] MEDS: HYDROmorphone 1 MG/ML 1 ML SYRINGE IVP ONE ×2 (10:46→10:53)
[2018-06-17] MEDS: MEPERIDINE 50 MG/ML SYRINGE IVP ONE ×2 (11:00→11:32)
[2018-06-17 13:28] VITALS: RESP 18
[2018-06-17] MEDS: Acetaminophen-Codeine 300-30mg TAB PO PRN ×2 (13:36→20:16)
[2018-06-17 15:41] VITALS: TEMP 97.7
[2018-06-18] MEDS ORDERED: IBUPROFEN 600 MG TAB PO SCH (00:45)
[2018-06-18] MEDS: IBUPROFEN 600 MG TAB PO PRN ×2 (00:58→08:37)
[2018-06-18] MEDS: Acetaminophen-Codeine 300-30mg TAB PO PRN ×2 (04:04→10:05)
--- NOTE | 2018-06-18 08:24 | P.DS ---
Providers Expected date of discharge: 06/18/18 Attending physician: Gary Lopez Primary care physician: Lucero Hugo [facility] Course: Patient is doing very well postop day 1. She is ambulating, voiding, and she is tolerating her diet. She voices no complaints and requests discharged home. Vital signs are stable and afebrile. Heart regular, lungs clear, extremities without pain. Abdomen is soft and nontender positive bowel sounds are noted. Incisions are intact. Assessment postop day 1. Plan discharged home follow up with me in 2 weeks. Prescription for Tylenol 3 and Motrin has been provided. Discharge instructions were thoroughly reviewed and all questions are answered for her prior to her discharge. Patient Condition at Discharge: Good Plan - Discharge Summary Discharge Rx Participant: Yes New Discharge Prescriptions: New Acetaminophen-Codeine 300-30mg [Tylenol #3] 1 tab PO Q4H PRN #20 tablet PRN Reason: Pain Ibuprofen [Motrin] 600 mg PO Q6HR PRN #30 tab PRN Reason: Pain No Action Topiramate [Topamax] 100 mg PO BID Discharge Medication List Topiramate [Topamax] 100 mg PO BID 04/08/18 [History] Acetaminophen-Codeine 300-30mg [Tylenol #3] 1 tab PO Q4H PRN #20 tablet [Rx] Ibuprofen [Motrin] 600 mg PO Q6HR PRN #30 tab 06/18/18 [Rx] Follow up Appointment(s)/Referral(s): Gary Lopez DO [Doctor of Osteopathic Medicine] - 2 Weeks Activity/Diet/Wound Care/Special Instructions: No heavy lifting, limit stairs and driving, and pelvic rest. If any high temperatures, heavy bleeding, or severe pain call my office. Discharge Disposition: HOME SELF-CARE
[2018-06-18 08:56] VITALS: BP 112/68; PULSE 78
== END 2018-06-18 10:26 | disposition home or self-care (01) ==
LOC: OR 07:40 → 4FBP 10:31 → OR 06-18 10:26
PROVIDERS: ATTEND Obstetrics & Gynecology
DX: G89.29 Other chronic pain (principal); R10.2 Pelvic and perineal pain; N83.202 Unspecified ovarian cyst, left side; N83.201 Unspecified ovarian cyst, right side; N72 Inflammatory disease of cervix uteri; N80.0 Endometriosis of uterus; Z86.14 Personal history of Methicillin resistant Staphylococcus aureus infection; F17.210 Nicotine dependence, cigarettes, uncomplicated; Z79.899 Other long term (current) drug therapy; Z88.8 Allergy status to other drugs, medicaments and biological substances; Z91.018 Allergy to other foods
CPT/HCPCS: 58550; S2900; 81025; 86850; 86900; 86901; 88307

== ENCOUNTER 2018-09-24 16:00 | Emergency (ER) | payer OTHER ==
[2018-09-24 16:21] VITALS: BP 137/88; PULSE 102; RESP 16; TEMP 98.9
[2018-09-24] MEDS ORDERED: MORPHINE SULFATE 4 MG/ML SYRINGE IV STA (16:56)
[2018-09-24] MEDS ORDERED: ONDANSETRON 4 MG/2 ML VIAL IVP STA (16:56)
[2018-09-24] MEDS ORDERED: SODIUM CHLORIDE 0.9% 1,000 ML IV STA ×2 (16:56)
--- NOTE | 2018-09-24 17:18 | ED ---
Abdominal Pain HPI - General Chief Complaint: Abdominal Pain Stated Complaint: Abd Pain Time Seen by Provider: 09/24/18 16:43 Source: patient, RN notes reviewed, old records reviewed Mode of arrival: ambulatory Limitations: no limitations - History of Present Illness Initial Comments: This Patient is a 33-year-old female who presents emergency department today after having anal and vaginal intercourse last night. She reports immediately having intercourse she started to develop significant abdominal pain. Patient reports that she had a partial hysterectomy in May. She called her [employer]SULT[employer] who instructed her to come to the emergency department. She denies any vaginal bleeding or bloody stools. She did have some diarrhea today. Patient states that she was able to eat slightly. No nausea or vomiting. She complains of upper and lower abdominal pain. She denies any back pain. Denies dysuria or hematuria. - Related Data Home Medications Medication Instructions Recorded Confirmed Topiramate [Topamax] 100 mg PO BID 04/08/18 09/24/18 Previous Rx's Medication Instructions Recorded Dicyclomine [Bentyl] 10 mg PO TID #20 capsule 09/24/18 Allergies Allergy/AdvReac Type Severity Reaction Status Date / Time pineapple Allergy Unknown Verified 09/24/18 16:32 succinylcholine Allergy Unknown Verified 09/24/18 16:32 [Succinylcholine] Review of Systems ROS Statement: Those systems with pertinent positive or pertinent negative responses have been documented in the HPI. ROS Other: All systems not noted in ROS Statement are negative. Past Medical History Past Medical History: No Reported History Additional Past Medical History / Comment(s): MIGRAINE, BACK PAIN; POSSIBLE PROLAPSED BLADDER, ectopic History of Any Multi-Drug Resistant Organisms: None Reported Date of last positivie culture/infection: 10/2017 MDRO Source:: PATIENT HAD MSSA NOT MRSA Past Surgical History: Ear Surgery, Tubal Ligation Additional Past Surgical History / Comment(s): MYRINGOTOMY, SINUS SURGERY, LEEP, OVARIAN CYST SURGERY, Past Anesthesia/Blood Transfusion Reactions: Previous Problems w/ Anesthesia Additional Past Anesthesia/Blood Transfusion Reaction / Comment(s): reaction to succinylcholine Past Psychological History: No Psychological Hx Reported Past Alcohol Use History: Daily General Exam - General Exam Comments Initial Comments: This is a 33-year-old female. Alert and oriented 3. appears in moderate discomfort. Limitations: no limitations General appearance: alert, in no apparent distress Head exam: Present: atraumatic, normocephalic, normal inspection Eye exam: Present: normal appearance, PERRL, EOMI. Absent: scleral icterus, conjunctival injection, periorbital swelling ENT exam: Present: normal exam, mucous membranes moist Neck exam: Present: normal inspection. Absent: tenderness, meningismus, lymphadenopathy Respiratory exam: Present: normal lung sounds bilaterally. Absent: respiratory distress, wheezes, rales, rhonchi, stridor Cardiovascular Exam: Present: regular rate, normal rhythm, normal heart sounds. Absent: systolic murmur, diastolic murmur, rubs, gallop, clicks GI/Abdominal exam: Present: soft, tenderness (Diffuse abdominal tenderness), nor mal bowel sounds. Absent: distended, guarding, rebound, rigid Extremities exam: Present: normal inspection, full ROM, normal capillary refill. Absent: tenderness, pedal edema, joint swelling, calf tenderness Back exam: Present: normal inspection Neurological exam: Present: alert, oriented X3, CN II-XII intact Psychiatric exam: Present: normal affect, normal mood Skin exam: Present: warm, dry, intact, normal color. Absent: rash Course Vital Signs 09/24/18 16:18 Temperature 98.9 F Pulse Rate 102 H Respiratory 16 Rate Blood Pressure 137/88 O2 Sat by Pulse 100 Oximetry Medical Decision Making - Medical Decision Making 33-year-old female presents emergency room stay after having anal and vaginal intercourse. After having intercourse she complain is clear abdominal pain. Some going on for the past day. Patient was given IV fluids are obtained. She is given a dose of pain medicine. She moves abdominal cramping and upper abdominal pain. Abdominal x-ray shows no evidence of free air concern for perforation. Patient's labwork was reviewed. Mild leukocytosis noted. Otherwise unremarkable. Discussed possibility of gastroenteritis or IBS. Patient agrees treatment plan and advised to have close follow-up with PCP. - Lab Data Result diagrams: 09/24/18 17:18 09/24/18 17:18 Lab Results 09/24/18 09/24/18 09/24/18 Range/Units 17:18 17:18 17:18 WBC 16.2 H (3.8-10.6) k/uL RBC 4.05 (3.80-5.40) m/uL Hgb 13.0 (11.4-16.0) gm/dL Hct 39.3 (34.0-46.0) % MCV 97.1 (80.0-100.0) fL MCH 32.2 (25.0-35.0) pg MCHC 33.2 (31.0-37.0) g/dL RDW 12.3 (11.5-15.5) % Plt Count 374 (150-450) k/uL Neutrophils % 78 % Lymphocytes % 16 % Monocytes % 4 % Eosinophils % 1 % Basophils % 0 % Neutrophils # 12.7 H (1.3-7.7) k/uL Lymphocytes # 2.5 (1.0-4.8) k/uL Monocytes # 0.7 (0-1.0) k/uL Eosinophils # 0.2 (0-0.7) k/uL Basophils # 0.0 (0-0.2) k/uL PT 10.5 (9.0-12.0) sec INR 1.0 (<1.2) APTT 26.2 (22.0-30.0) sec Sodium 141 (137-145) mmol/L Potassium 3.4 L (3.5-5.1) mmol/L Chloride 110 H (98-107) mmol/L Carbon Dioxide 20 L (22-30) mmol/L Anion Gap 11 mmol/L BUN 9 (7-17) mg/dL Creatinine 0.78 (0.52-1.04) mg/dL Est GFR (CKD-EPI)AfAm >90 (>60 ml/min/1.73 sqM) Est GFR (CKD-EPI)NonAf >90 (>60 ml/min/1.73 sqM) Glucose 86 (74-99) mg/dL Calcium 9.5 (8.4-10.2) mg/dL Total Bilirubin 0.5 (0.2-1.3) mg/dL AST 13 L (14-36) U/L ALT 23 (9-52) U/L Alkaline Phosphatase 54 (38-126) U/L Total Protein 6.9 (6.3-8.2) g/dL Albumin 4.3 (3.5-5.0) g/dL Amylase 56 (30-110) U/L Lipase 76 (23-300) U/L Urine Color Urine Appearance (Clear) Urine pH (5.0-8.0) Ur Specific [place] (1.001-1.035) Urine Protein (Negative) Urine Glucose (UA) (Negative) Urine Ketones (Negative) Urine Blood (Negative) Urine Nitrite (Negative) Urine Bilirubin (Negative) Urine Urobilinogen (<2.0) mg/dL Ur Leukocyte Esterase (Negative) 09/24/18 Range/Units 17:18 WBC (3.8-10.6) k/uL RBC (3.80-5.40) m/uL Hgb (11.4-16.0) gm/dL Hct (34.0-46.0) % MCV (80.0-100.0) fL MCH (25.0-35.0) pg MCHC (31.0-37.0) g/dL RDW (11.5-15.5) % Plt Count (150-450) k/uL Neutrophils % % Lymphocytes % % Monocytes % % Eosinophils % % Basophils % % Neutrophils # (1.3-7.7) k/uL Lymphocytes # (1.0-4.8) k/uL Monocytes # (0-1.0) k/uL Eosinophils # (0-0.7) k/uL Basophils # (0-0.2) k/uL PT (9.0-12.0) sec INR (<1.2) APTT (22.0-30.0) sec Sodium (137-145) mmol/L Potassium (3.5-5.1) mmol/L Chloride (98-107) mmol/L Carbon Dioxide (22-30) mmol/L Anion Gap mmol/L BUN (7-17) mg/dL Creatinine (0.52-1.04) mg/dL Est GFR (CKD-EPI)AfAm (>60 ml/min/1.73 sqM) Est GFR (CKD-EPI)NonAf (>60 ml/min/1.73 sqM) Glucose (74-99) mg/dL Calcium (8.4-10.2) mg/dL Total Bilirubin (0.2-1.3) mg/dL AST (14-36) U/L ALT (9-52) U/L Alkaline Phosphatase (38-126) U/L Total Protein (6.3-8.2) g/dL Albumin (3.5-5.0) g/dL Amylase (30-110) U/L Lipase (23-300) U/L Urine Color Light Yellow Urine Appearance Clear (Clear) Urine pH 6.0 (5.0-8.0) Ur Specific [place] 1.004 (1.001-1.035) Urine Protein Negative (Negative) Urine Glucose (UA) Negative (Negative) Urine Ketones Negative (Negative) Urine Blood Negative (Negative) Urine Nitrite Negative (Negative) Urine Bilirubin Negative (Negative) Urine Urobilinogen <2.0 (<2.0) mg/dL Ur Leukocyte Esterase Negative (Negative) - Radiology Data Radiology results: report reviewed Abdominal x-rays are negative for any free air. Disposition Clinical Impression: Abdominal pain Disposition: HOME SELF-CARE Condition: Good Instructions (If sedation given, give patient instructions): Abdominal Pain (ED) Additional Instructions: Patient advised to rest, increase fluid intake. Follow-up with your primary care provider. Return to the emergency department if any alarming signs or symptoms occur. Prescriptions: Dicyclomine [Bentyl] 10 mg PO TID #20 capsule Is patient prescribed a controlled substance at d/c from ED?: No Referrals: Lucero Hugo MD [Primary Care Provider] - 1-2 days Time of Disposition: 18:33
[2018-09-24 17:28] LABS: Appearance,Urine Clear (Clear); Bilirubin,Urine Negative (Negative); Blood,Urine Negative (Negative); Color,Urine Light Yellow; Glucose,Urine (UA) Negative (Negative); Ketones,Urine Negative (Negative); Leukocyte Esterase,Urine Negative (Negative); Nitrite,Urine Negative (Negative); Protein,Urine Negative (Negative); Specific Gravity,Urine 1.004 (1.001-1.035); Urobilinogen,Urine <2.0 mg/dL (<2.0)
[2018-09-24 17:29] LABS: Basophils % (A) 0 %; Eosinophils # (A) 0.2 k/uL (0-0.7); Eosinophils % (A) 1 %; HCT 39.3 % (34.0-46.0); Lymphocytes # (A) 2.5 k/uL (1.0-4.8); Lymphocytes % (A) 16 %; MCH 32.2 pg (25.0-35.0); MCHC 33.2 g/dL (31.0-37.0); MCV 97.1 fL (80.0-100.0); Mean Platelet Volume 7.3; Monocytes # (A) 0.7 k/uL (0-1.0); Monocytes % (A) 4 %; Neutrophils # (A) 12.7 k/uL (1.3-7.7); Neutrophils % (A) 78 %; Platelet Count 374 k/uL (150-450); RBC 4.05 m/uL (3.80-5.40); RDW 12.3 % (11.5-15.5); WBC 16.2 k/uL (3.8-10.6)
[2018-09-24 17:36] LABS: ALT 23 U/L (9-52); AST 13 U/L (14-36); Albumin 4.3 g/dL (3.5-5.0); Alkaline Phosphatase 54 U/L (38-126); Amylase 56 U/L (30-110); Anion Gap 11 mmol/L; Blood Urea Nitrogen 9 mg/dL (7-17); Calcium 9.5 mg/dL (8.4-10.2); Carbon Dioxide 20 mmol/L (22-30); Chloride 110 mmol/L (98-107); Glucose 86 mg/dL (74-99); Lipase 76 U/L (23-300); Potassium 3.4 mmol/L (3.5-5.1); Sodium 141 mmol/L (137-145); Total Bilirubin 0.5 mg/dL (0.2-1.3); Total Protein 6.9 g/dL (6.3-8.2)
[2018-09-24 17:40] LABS: Partial Thromboplastin Time 26.2 sec (22.0-30.0); Prothrombin Time 10.5 sec (9.0-12.0)
--- NOTE | 2018-09-24 17:56 | XR ---
EXAMINATION TYPE: XR abdomen complete w decub DATE OF EXAM: 09/24/2018 COMPARISON: 10/21/2014 HISTORY: Abdominal pain TECHNIQUE: Upright and supine views and decubitus view FINDINGS: There is no sign of intestinal obstruction or pneumoperitoneum. Fecal pattern is normal. Lung bases a re clear. There are no pathologic calcifications over the kidneys. Decubitus view shows no free air. Bony structures are intact. IMPRESSION: Nonacute abdomen.
[2018-09-24] MEDS ORDERED: KETOROLAC 30 MG/ML 1 ML VIAL IVP STA (18:32)
[2018-09-24] MEDS ORDERED: DICYCLOMINE 20 MG TAB PO STA (18:33)
== END 2018-09-24 18:54 | disposition home or self-care (01) ==
LOC: EC 16:00
DX: R10.84 Generalized abdominal pain (principal); R19.7 Diarrhea, unspecified; G43.909 Migraine, unspecified, not intractable, without status migrainosus; Z79.899 Other long term (current) drug therapy; Z91.018 Allergy to other foods; Z88.8 Allergy status to other drugs, medicaments and biological substances
CPT/HCPCS: 36415; 80053; 82150; 83690; 85025; 85610; 85730; 81003; 87086; 74021; 99284; 96374; 96375 ×2; 96361; J2270; J2405; J1885

== ENCOUNTER 2018-09-27 12:58 | Emergency (ER) | payer OTHER ==
[2018-09-27 14:12] VITALS: TEMP 98.1
[2018-09-27 14:19] LABS: Basophils % (A) 0 %; Eosinophils # (A) 0.2 k/uL (0-0.7); Eosinophils % (A) 2 %; HCT 35.9 % (34.0-46.0); Lymphocytes # (A) 1.6 k/uL (1.0-4.8); Lymphocytes % (A) 15 %; MCH 32.7 pg (25.0-35.0); MCHC 33.4 g/dL (31.0-37.0); MCV 97.8 fL (80.0-100.0); Mean Platelet Volume 7.7; Monocytes # (A) 0.4 k/uL (0-1.0); Monocytes % (A) 4 %; Neutrophils # (A) 8.5 k/uL (1.3-7.7); Neutrophils % (A) 79 %; Platelet Count 351 k/uL (150-450); RBC 3.67 m/uL (3.80-5.40); RDW 12.3 % (11.5-15.5); WBC 10.8 k/uL (3.8-10.6)
[2018-09-27 14:25] LABS: Amorphous Sediment,Urine Occasional /hpf; Appearance,Urine Clear (Clear); Bilirubin,Urine Negative (Negative); Blood,Urine Small (Negative); Color,Urine Colorless; Glucose,Urine (UA) Negative (Negative); Ketones,Urine Negative (Negative); Leukocyte Esterase,Urine Negative (Negative); Nitrite,Urine Negative (Negative); Protein,Urine Negative (Negative); RBC,Urine 2 /hpf (0-5); Specific Gravity,Urine 1.003 (1.001-1.035); Squamous Epithelial Cell,Urine 4 /hpf (0-4); Urobilinogen,Urine <2.0 mg/dL (<2.0); WBC,Urine 1 /hpf (0-5)
[2018-09-27 14:30] LABS: ALT 20 U/L (9-52); AST 15 U/L (14-36); Albumin 3.9 g/dL (3.5-5.0); Alkaline Phosphatase 56 U/L (38-126); Amylase 48 U/L (30-110); Anion Gap 11 mmol/L; Blood Urea Nitrogen 9 mg/dL (7-17); Calcium 9.3 mg/dL (8.4-10.2); Carbon Dioxide 18 mmol/L (22-30); Chloride 114 mmol/L (98-107); Glucose 87 mg/dL (74-99); Lipase 93 U/L (23-300); Potassium 3.8 mmol/L (3.5-5.1); Sodium 143 mmol/L (137-145); Total Bilirubin 0.2 mg/dL (0.2-1.3); Total Protein 6.7 g/dL (6.3-8.2)
--- NOTE | 2018-09-27 14:39 | US ---
EXAMINATION TYPE: US venous doppler duplex LE LT DATE OF EXAM: 09/27/2018 2:26 PM COMPARISON: NONE CLINICAL HISTORY: Pain. Pt states left leg swelling x 2 days SIDE PERFORMED: Left TECHNIQUE: The lower extremity deep venous system is examined utilizing real time linear array sonog zachary with graded compression, doppler sonography and color-flow sonography. VESSELS IMAGED: External Iliac Vein (EIV) Common Femoral Vein Deep Femoral Vein Greater Saphenous Vein * Femoral Vein Popliteal Vein Small Saphenous Vein * Proximal Calf Veins (* superficial vessels) Left Leg: Negative for DVT Grayscale, color doppler, spectral doppler imaging performed of the deep veins of the left lower extr emity. There is normal flow, compressibility, vascular waveforms. IMPRESSION: No ultrasound evidence for acute DVT in the left lower extremity.
--- NOTE | 2018-09-27 15:24 | ED ---
Abdominal Pain HPI - General Chief Complaint: Abdominal Pain Stated Complaint: Abd Pain Time Seen by Provider: 09/27/18 13:34 Source: patient Mode of arrival: ambulatory - History of Present Illness Initial Comments: 33-year-old female with past history of previous partial hysterectomy, ovarian cyst present today for chief complaint of right lower abdominal pain. Patient states she was evaluated Thursday for abdominal pain. Pt has experienced pain in the abdomen diffusely after anal intercourse. Pt KUB (-) at that time, laboratory studies revealed a ptosis remaining within acceptable limits. Patient had culture of urine at that time which grew S. galactiae,, she is currently complaining of right lower quadrant pain urgency frequency dysuria. Patient denies vaginal discharge. Patient denies vaginal bleeding. Patient states the day following initial discharge that the pain subsided somewhat, it returned thursday and was mostly present in the RLQ, she states it is a stabbing pain with some radiation to back. He denies chest pain, dyspnea, dyspnea upon exertion, nausea, vomiting, diarrhea,fever, hematochezia, hematuria. Upon ROS patient states last night she noticed swelling of left foot, denies calf pain, history of blood cltos, recent travel, pain in calf. Patient states she didnt think much of it. Remaining ROS (-). Patient appears comfortable, no signs of acute distress upon arrival. No protective posturing. - Related Data Home Medications Medication Instructions Recorded Confirmed Topiramate [Topamax] 100 mg PO BID 04/08/18 09/27/18 Previous Rx's Medication Instructions Recorded Dicyclomine [Bentyl] 10 mg PO TID #20 capsule 09/24/18 Cephalexin [Keflex] 500 mg PO Q12HR 5 Days #10 cap 09/27/18 Allergies Allergy/AdvReac Type Severity Reaction Status Date / Time pineapple Allergy Unknown Verified 09/27/18 14:08 succinylcholine Allergy Unknown Verified 09/27/18 14:08 [Succinylcholine] Review of Systems ROS Statement: Those systems with pertinent positive or pertinent negative responses have been documented in the HPI. ROS Other: All systems not noted in ROS Statement are negative. Past Medical History Past Medical History: No Reported History Additional Past Medical History / Comment(s): MIGRAINE, BACK PAIN; POSSIBLE PROLAPSED BLADDER, ectopic History of Any Multi-Drug Resistant Organisms: None Reported Date of last positivie culture/infection: 10/2017 MDRO Source:: left ankle Past Surgical History: Ear Surgery, Tubal Ligation Additional Past Surgical History / Comment(s): MYRINGOTOMY, SINUS SURGERY, LEEP, OVARIAN CYST SURGERY, Past Anesthesia/Blood Transfusion Reactions: Previous Problems w/ Anesthesia Additional Past Anesthesia/Blood Transfusion Reaction / Comment(s): reaction to succinylcholine Past Psychological History: No Psychological Hx Reported Smoking Status: Current every day smoker Past Alcohol Use History: Occasional Past Drug Use History: None Reported General Exam - General Exam Comments Initial Comments: General: The patient is awake and alert, in no distress, and does not appear acutely ill. Eye: Pupils are equal, round and reactive to light, extra-ocular movements are intact. No nystagmus. There is normal conjunctiva bilaterally. No signs of icterus. Ears, nose, mouth and throat: There are moist mucous membranes and no oral lesions. Neck: The neck is supple, there is no tenderness or JVD. Cardiovascular: There is a regular rate and rhythm. No murmur, rub or gallop is appreciated. Respiratory: Lungs are clear to auscultation, respirations are non-labored, breath sounds are equal. No wheezes, stridor, rales, or rhonchi. Gastrointestinal: No noted diaphoresis, jaundice, pallor, protecting postures or squirming. Symmetrical pigmentation of abdomen without signs of inflammation. Umbilicus mildline, inverted without swelling. No dilated veins. Abdomen contour obese, no noted abdominal distention. No visible masses. No peristalsis, aortic pulsations, or ventral hernia. Bowel sounds audible in all 4 quadrants, unremarkable. No friction rubs or venous hums. No epigastic, hepatic or abdominal bruits. Mild tenderness to palpation of the RLQ to palpation, (-) McBurney no pain to palpation of lower pelvic region. Liver edge, not palpable. Spleen edge, right and left kidney not palpable. Superior bladder margin non- tender. Special Testing: Negative [place], [place], [place], cutaneous hyperesthesia. Iliopsoas and obturator tests negative bilaterally. Negative Heel Jar test. No CVA tenderness. Digital rectal exam deferred. Negative miller turners or cullens sign Musculoskeletal: Normal ROM, no tenderness. Strength 5/5. Sensation intact. Pulses equal bilaterally 2+. Neurological: A&O x 3. CN II-XII intact, There are no obvious motor or sensory deficits. Coordination appears grossly intact. Speech is normal. Skin: Skin is warm and dry and no rashes or lesions are noted. Psychiatric: Cooperative, appropriate mood & affect, normal judgment. Course Vital Signs 09/27/18 09/27/18 09/27/18 13:08 14:11 15:33 Temperature 98.6 F 98.1 F Pulse Rate 95 99 73 Respiratory 18 16 20 Rate Blood Pressure 144/93 128/81 119/85 O2 Sat by Pulse 100 100 100 Oximetry Medical Decision Making - Medical Decision Making Well appearing 33-year-old female presenting today for chief complaint of RLQ abdominal pain. Patient appears well upon arrival no signs of acute distress. Patient had mild pain to deep palpation of the right lower quadrant. No upper abdominal pain. Patient had no rebound or guarding or rigidity noted on examination. Laboratory studies reveal mild leukocytosis, this is significantly improved since evaluation on 09/24. Remaining laboratory studies within acceptable limits. CT abdomen revealed ovarian cysts, patient states the more she thinks of it, it does feel similar to when she has had cysts in the past. Free fluid or air in the abdomen. Pt given ketoralac for pain mgmt and fluids. Pt complains of dysuria, as well as a urine culture. Because patient symptomatically positive urine culture be treated with Keflex. At this time I feel pt pain most likely due to ovarian cyst, no signs of acute appendicitis or colitis. Relatively benign abdominal exam. In discussing imaging findings his laboratory studies patient she states she is comfortable with discharge. I discussed case attending provider Dr. Avalos, reviewed laboratory studies as well as imaging. Patient given appearing well, no signs of acute abdomen on exam with history of cysts pt will be discharge with strict return parameters and outpatient pcp f/u. She is agreeable plan as well as discharge. Patient dis charged appearing well. VS within acceptable limits. - Lab Data Result diagrams: 09/27/18 14:07 09/27/18 14:07 Lab Results 09/27/18 09/27/18 09/27/18 Range/Units 14:00 14:07 14:07 WBC 10.8 H (3.8-10.6) k/uL RBC 3.67 L (3.80-5.40) m/uL Hgb 12.0 (11.4-16.0) gm/dL Hct 35.9 (34.0-46.0) % MCV 97.8 (80.0-100.0) fL MCH 32.7 (25.0-35.0) pg MCHC 33.4 (31.0-37.0) g/dL RDW 12.3 (11.5-15.5) % Plt Count 351 (150-450) k/uL Neutrophils % 79 % Lymphocytes % 15 % Monocytes % 4 % Eosinophils % 2 % Basophils % 0 % Neutrophils # 8.5 H (1.3-7.7) k/uL Lymphocytes # 1.6 (1.0-4.8) k/uL Monocytes # 0.4 (0-1.0) k/uL Eosinophils # 0.2 (0-0.7) k/uL Basophils # 0.0 (0-0.2) k/uL Sodium 143 (137-145) mmol/L Potassium 3.8 (3.5-5.1) mmol/L Chloride 114 H (98-107) mmol/L Carbon Dioxide 18 L (22-30) mmol/L Anion Gap 11 mmol/L BUN 9 (7-17) mg/dL Creatinine 0.69 (0.52-1.04) mg/dL Est GFR (CKD-EPI)AfAm >90 (>60 ml/min/1.73 sqM) Est GFR (CKD-EPI)NonAf >90 (>60 ml/min/1.73 sqM) Glucose 87 (74-99) mg/dL Calcium 9.3 (8.4-10.2) mg/dL Total Bilirubin 0.2 (0.2-1.3) mg/dL AST 15 (14-36) U/L ALT 20 (9-52) U/L Alkaline Phosphatase 56 (38-126) U/L Total Protein 6.7 (6.3-8.2) g/dL Albumin 3.9 (3.5-5.0) g/dL Amylase 48 (30-110) U/L Lipase 93 (23-300) U/L Urine Color Colorless Urine Appearance Clear (Clear) Urine pH 7.0 (5.0-8.0) Ur Specific [place] 1.003 (1.001-1.035) Urine Protein Negative (Negative) Urine Glucose (UA) Negative (Negative) Urine Ketones Negative (Negative) Urine Blood Small H (Negative) Urine Nitrite Negative (Negative) Urine Bilirubin Negative (Negative) Urine Urobilinogen <2.0 (<2.0) mg/dL Ur Leukocyte Esterase Negative (Negative) Urine RBC 2 (0-5) /hpf Urine WBC 1 (0-5) /hpf Ur Squamous Epith Cells 4 (0-4) /hpf Amorphous Sediment Occasional H (None) /hpf Disposition Clinical Impression: Abdominal pain Disposition: HOME SELF-CARE Condition: Good Instructions (If sedation given, give patient instructions): Ovarian Cyst (ED), Abdominal Pain (ED) Additional Instructions: Please use medication as discussed. Please follow-up with family doctor in the next 2 days, please follow-up with OBGYN in next week. Please return to emergency room if the symptoms increase or worsen or for any other concerns. Prescriptions: Cephalexin [Keflex] 500 mg PO Q12HR 5 Days #10 cap Is patient prescribed a controlled substance at d/c from ED?: No Referrals: Lucero Hugo MD [Primary Care Provider] - 1-2 days Time of Disposition: 15:53
[2018-09-27] MEDS ORDERED: ONDANSETRON 4 MG/2 ML VIAL IVP STA (15:25)
--- NOTE | 2018-09-27 15:31 | CT ---
EXAMINATION TYPE: CT abdomen pelvis w con DATE OF EXAM: 09/27/2018 COMPARISON: CT 06/01/2017 HISTORY: Mid to RLQ pain with diarrhea and nausea CT DLP: 682.1 mGycm Automated exposure control for dose reduction was used. TECHNIQUE: Helical acquisition of images from the lung bases through the pelvis have been completed. CONTRAST: Performed without Oral Contrast and with IV Contrast, patient injected with 100 mL of Isovue 300. FINDINGS: LUNG BASES: No significant abnormality is appreciated. AORTA: No significant abnormality is appreciated. LIVER/GB: No significant abnormality is appreciated. Gallbladder is contracted. PANCREAS: No significant abnormality is seen. SPLEEN: No significant abnormality is seen. ADRENALS: No significant abnormality is seen. KIDNEYS: No significant interval change is seen, cortical cyst present on the right. REPRODUCTIVE ORGANS: Large cystic foci are present in the right hemipelvis, there is a septation, the re is a focus measuring 5.5 cm in AP dimension by 5.6 cm in cephalad to caudal dimension by 3.5 cm in transverse dimension. Additionally cystic focus is present in the cul-de-sac level measuring approxi mately 3.5 x 2.5 x 3.5 cm. Uterus is not seen. BOWEL: Fluid-filled loops of small bowel are present, small bowel fold thickening is present. Append ix is normal. FREE AIR: No Free Air visible. ASCITES: None visible. PELVIC ADENOPATHY: None visualized. RETROPERITONEAL ADENOPATHY: No Retroperitoneal Adenopathy visible. URINARY BLADDER: No significant abnormality is seen. OSSEOUS STRUCTURES: No significant abnormality is seen. IMPRESSION: CORRELATE FOR POSSIBLE UNDERLYING ENTERITIS. CYSTIC FOCI IN THE RIGHT HEMIPELVIS ARE NOTED WHICH MAY REPRESENT OVARIAN CYSTS AND RESIDUAL FROM PRIOR SURGERY, CORRELATE FOR HISTORY OF ENDOMETRIOSIS, CONS IDER FOLLOW-UP. THERE HAS BEEN INTERVAL HYSTERECTOMY.
[2018-09-27 15:33] VITALS: BP 119/85; PULSE 73; RESP 20
[2018-09-27] MEDS ORDERED: KETOROLAC 30 MG/ML 1 ML VIAL IVP STA (15:59)
== END 2018-09-27 16:17 | disposition home or self-care (01) ==
LOC: EC 12:58
DX: D72.829 Elevated white blood cell count, unspecified (principal); R35.0 Frequency of micturition; R30.0 Dysuria; G43.909 Migraine, unspecified, not intractable, without status migrainosus; F17.200 Nicotine dependence, unspecified, uncomplicated; Z98.51 Tubal ligation status; Z98.890 Other specified postprocedural states; Z90.710 Acquired absence of both cervix and uterus; Z87.42 Personal history of other diseases of the female genital tract; Z79.899 Other long term (current) drug therapy; Z91.018 Allergy to other foods; Z88.8 Allergy status to other drugs, medicaments and biological substances
CPT/HCPCS: 36415; 80053; 82150; 83690; 85025; 81001; 93971; 74177; 99284; 96374; 96375; J2405; J1885; Q9967

== ENCOUNTER → 2018-10-13 | Outpatient (CLI) | payer OTHER ==
--- NOTE | 2018-10-13 13:39 | US ---
EXAMINATION TYPE: US pelvic complete DATE OF EXAM: 10/13/2018 COMPARISON: US, CT CLINICAL HISTORY: R10.2 Pelvic Pain, N83.0 Ovarian cyst. Pelvic pain x 17 days. Hx ovarian cyst. Part ial hysterectomy May 2018. Pt unsure of LMP. TECHNIQUE: Transabdominal (TA). Transabdominal sonographic images of the pelvis were acquired. Date of LMP: Unknown EXAM MEASUREMENTS: Uterus: Hysterectomy cm Right Ovary: 4.7 x 2.6 x 2.6 cm Left Ovary: 3.7 x 2.2 x 2.4 cm 3. Right Ovary: Multiple anechoic areas seen. Largest measured: 1.2 x 1.4 x 1.4 cm 4. Left Ovary: Follicles seen. Spectral, color and waveform doppler imaging shows good arterial and venous flow within the ovaries ; there is no evidence for ovarian torsion. 5. Bilateral Adnexa: wnl 6. Posterior cul-de-sac: wnl IMPRESSION: 1. Right ovarian cyst. 2. Multiple bilateral ovarian follicles are present.
== END ==
LOC: RADUSWWP 12:14
PROVIDERS: ATTEND Obstetrics & Gynecology
DX: N83.201 Unspecified ovarian cyst, right side (principal)
CPT/HCPCS: 76856; 93975

== ENCOUNTER 2019-02-01 10:36 | Emergency (ER) | payer OTHER ==
[2019-02-01 10:42] VITALS: RESP 18
[2019-02-01] MEDS ORDERED: KETOROLAC 30 MG/ML 1 ML VIAL IM STA (11:18)
--- NOTE | 2019-02-01 11:18 | ED ---
Extremity Problem HPI - General Chief complaint: Extremity Problem,Nontraumatic Stated complaint: LEFT LEG SWELLING AND DISCOLORATION Time Seen by Provider: 02/01/19 10:45 Source: patient Mode of arrival: ambulatory Limitations: no limitations - History of Present Illness Initial comments: Patient is a 33-year-old female presents emergency Department with a chief complaint of left leg pain. Patient reports she woke up this morning with an onset of left groin pain radiating to her foot. Patient reports most of the pain is located along the anterior aspect of the left upper leg radiating to the lower leg. Patient reports that she has developed lower extremity edema. Patient also reports calf tenderness. Patient denies shortness of breath, , e xogenous estrogen use, prolonged periods of activity, receiving chemotherapy use or . Patient denies any numbness or tingling. Patient denies a history of cardio vascular disease. Patient is a daily smoker. - Related Data Home Medications Medication Instructions Recorded Confirmed Topiramate [Topamax] 100 mg PO BID 04/08/18 02/01/19 Ibuprofen [Motrin Ib] 800 mg PO Q6H PRN 02/01/19 02/01/19 Allergies Allergy/AdvReac Type Severity Reaction Status Date / Time pineapple Allergy Unknown Verified 02/01/19 10:49 succinylcholine Allergy Unknown Verified 02/01/19 10:49 [Succinylcholine] Review of Systems ROS Statement: Those systems with pertinent positive or pertinent negative responses have been documented in the HPI. ROS Other: All systems not noted in ROS Statement are negative. Past Medical History Past Medical History: No Reported History Additional Past Medical History / Comment(s): MIGRAINE, BACK PAIN; POSSIBLE PROLAPSED BLADDER, ectopic History of Any Multi-Drug Resistant Organisms: None Reported, MRSA Date of last positivie culture/infection: 10/2017 MDRO Source:: left ankle Past Surgical History: Ear Surgery, Tubal Ligation Additional Past Surgical History / Comment(s): MYRINGOTOMY, SINUS SURGERY, LEEP, OVARIAN CYST SURGERY, Past Anesthesia/Blood Transfusion Reactions: Previous Problems w/ Anesthesia Additional Past Anesthesia/Blood Transfusion Reaction / Comment(s): reaction to succinylcholine Past Psychological History: No Psychological Hx Reported Smoking Status: Current every day smoker Past Alcohol Use History: Rare Past Drug Use History: None Reported General Exam Limitations: no limitations General appearance: alert, in no apparent distress Head exam: Present: atraumatic, normocephalic, normal inspection Eye exam: Present: normal appearance, PERRL, EOMI Pupils: Present: normal accommodation ENT exam: Present: normal exam, mucous membranes moist, normal external ear exam Neck exam: Present: normal inspection, full ROM Respiratory exam: Present: normal lung sounds bilaterally Cardiovascular Exam: Present: regular rate, normal rhythm, normal heart sounds Extremities exam: Present: normal inspection (No skin discoloration, changes in hair pattern, lesions, abrasions, lacerations, changes in skin temperature.), full ROM, tenderness (Foot and ankle tenderness with palpation), normal capillary refill, pedal edema (+1 pedal edema), calf tenderness (Positive left Homans.), other (+2 dorsalis pedis and posterior tibialis on the right leg. Left leg detected with ultrasound.) Back exam: Present: normal inspection, full ROM Neurological exam: Present: alert, oriented X3 Psychiatric exam: Present: normal affect, normal mood Skin exam: Present: warm, intact, normal color Course Vital Signs 02/01/19 10:39 Temperature 99.2 F Pulse Rate 111 H Respiratory 18 Rate Blood Pressure 143/90 O2 Sat by Pulse 100 Oximetry Medical Decision Making - Medical Decision Making Patient is a 33-year-old female presenting to emergency Department with a chief complaint of left leg pain. Doppler ultrasound of the left extremity is negative for DVT. There is no changes in hair distribution, skin discoloration or temperature between left versus right leg. Patient does not have any cardiovascular disease. Patient is within range for a BMI and is fairly young. I have low suspicion for PVD at this time. Based on physical examination it does not appear to patient to have an infection on the lower extremity. Her vitals are stable. Patient advised to keep legs elevated multiple times throughout the day for 10-15 minutes. Patient advised to wear compression stockings. Patient advised to follow-up with primary care. Strict return parameters were thoroughly discussed with patient was understanding and agreeable. Case discussed with physician. Disposition Clinical Impression: Leg pain, left Disposition: HOME SELF-CARE Condition: Stable Instructions (If sedation given, give patient instructions): Leg Pain (ED) Additional Instructions: Please follow up with primary care. Please wear compression stockings. Please return to emergency department if symptoms worsen. Alternate between Tylenol and ibuprofen for pain control. Keep leg elevated multiple times throughout the day for 10-15 minutes. Is patient prescribed a controlled substance at d/c from ED?: No Referrals: Hans Fields MD [Primary Care Provider] - 1-2 days Time of Disposition: 12:48
--- NOTE | 2019-02-01 11:55 | US ---
EXAMINATION TYPE: US venous doppler duplex LE LT DATE OF EXAM: 02/01/2019 11:46 AM COMPARISON: NONE CLINICAL HISTORY: Pain. Pain and swelling SIDE PERFORMED: Left TECHNIQUE: The lower extremity deep venous system is examined utilizing real time linear array sonog zachary with graded compression, doppler sonography and color-flow sonography. VESSELS IMAGED: External Iliac Vein (EIV) Common Femoral Vein Deep Femoral Vein Greater Saphenous Vein * Femoral Vein Popliteal Vein Small Saphenous Vein * Proximal Calf Veins (* superficial vessels) Left Leg: Negative for DVT Grayscale, color doppler, spectral doppler imaging performed of the deep veins of the left lower extr emity. There is normal flow, compressibility, vascular waveforms. IMPRESSION: No sonographic evidence of deep venous thrombosis within the left lower extremity.
[2019-02-01] MEDS ORDERED: ACETAMINOPHEN TAB 500 MG TAB PO STA (13:27)
--- NOTE | 2019-02-01 14:06 | XR ---
EXAMINATION TYPE: XR foot complete LT DATE OF EXAM: 02/01/2019 COMPARISON: None HISTORY: Pain TECHNIQUE: Three-view left foot FINDINGS: No acute fractures or dislocations are evident. Soft tissues are normal. Some medial deviation of the distal fourth digit is present. IMPRESSION: 1. Unremarkable 3 view left foot.
[2019-02-01] MEDS ORDERED: cefTRIAXone 1,000 MG VIAL (IM USE) IM STA (14:10)
[2019-02-01 14:40] VITALS: BP 105/72; PULSE 107; TEMP 101.9
== END 2019-02-01 14:39 | disposition home or self-care (01) ==
LOC: EC 10:36
DX: M79.672 Pain in left foot (principal); M25.572 Pain in left ankle and joints of left foot; R50.9 Fever, unspecified; L53.9 Erythematous condition, unspecified; R60.0 Localized edema; R10.32 Left lower quadrant pain; F17.200 Nicotine dependence, unspecified, uncomplicated; Z88.8 Allergy status to other drugs, medicaments and biological substances; Z91.018 Allergy to other foods; Z79.899 Other long term (current) drug therapy; Z86.14 Personal history of Methicillin resistant Staphylococcus aureus infection; Z86.69 Personal history of other diseases of the nervous system and sense organs
CPT/HCPCS: 73630; 93971; 99284; 96372 ×2; J0696; J1885

== ENCOUNTER → 2019-08-11 | Outpatient (CLI) | payer OTHER ==
--- NOTE | 2019-08-11 14:04 | MM ---
Reason for exam: clinical finding. Baseline mammogram. History: Took hormonal contraceptives for 2 years. Indicated problem(s): non-bloody discharge in both breasts. Physical Findings: Nurse did not find any significant physical abnormalities on exam. MG 3D Diag Mammo W/Cad ELIZABETH Bilateral CC and MLO view(s) were taken. The breast tissue is heterogeneously dense. This may lower the sensitivity of mammography. Left lower inner quadrant focal asymmetry 3cm from nipple. This appears as dense fibroglandular tissue on 3D. Precautionary ultrasound will be done. These results were verbally communicated with the patient and result sheet given to the patient on 08/11/19. ASSESSMENT: Incomplete: need additional imaging evaluation, BI-RAD 0 RECOMMENDATION: Ultrasound of the left breast. (lower inner quadrant)
--- NOTE | 2019-08-11 14:06 | USB ---
Reason for exam: additional evaluation requested from abnormal screening. History: Took hormonal contraceptives for 2 years. US Breast Limited LT Left limited breast ultrasound including focal area of concern, retroareolar and axilla demonstrates no cystic or solid lesion seen. Dense tissue noted at 8 o'clock, correlating with the mammographic finding. These results were verbally communicated with the patient and result sheet given to the patient on 08/11/19. ASSESSMENT: Benign, BI-RAD 2 RECOMMENDATION: Routine screening mammogram of both breasts in 1 year.
== END | disposition home or self-care (01) ==
LOC: RADMAMWWP 12:52
PROVIDERS: ATTEND Nurse Practitioner Family
DX: R92.8 Other abnormal and inconclusive findings on diagnostic imaging of breast (principal); N64.82 Hypoplasia of breast; Z80.3 Family history of malignant neoplasm of breast
CPT/HCPCS: 77066; 76642; G0279; 77062

== ENCOUNTER 2020-03-13 09:27 | Emergency (ER) | payer OTHER ==
[2020-03-13 09:30] VITALS: TEMP 99
[2020-03-13] MEDS ORDERED: SODIUM CHLORIDE 0.9% 1,000 ML IV STA (09:41)
[2020-03-13] MEDS ORDERED: ONDANSETRON ODT 8 MG TAB.RAPDIS PO STA (09:41)
[2020-03-13] MEDS ORDERED: KETOROLAC 15 MG/ML 1 ML VIAL IVP STA (09:41)
--- NOTE | 2020-03-13 09:44 | ED ---
General Adult HPI - General Chief complaint: Abdominal Pain Stated complaint: abd pain Time Seen by Provider: 03/13/20 09:32 Source: patient, RN notes reviewed Mode of arrival: ambulatory Limitations: no limitations - History of Present Illness Initial comments: 34-year-old female with a past medical history of migraines, back pain, hysterectomy presents to the emergency room for a chief complaint of right lower quadrant pain. Patient reports that this started on Thursday. States it has been making her nauseous and not want to eat. Patient has had diarrhea as well. Denies fevers or chills. Patient states she has had ovarian cysts in the past but states this lasts longer than normal with that.Patient has no other complaints at this time including shortness of breath, chest pain, nausea or vomiting, headache, or visual changes. - Related Data Home Medications Medication Instructions Recorded Confirmed Topiramate [Topamax] 100 mg PO DAILY 04/08/18 03/13/20 FLUoxetine HCL [PROzac] 40 mg PO DAILY 03/13/20 03/13/20 Previous Rx's Medication Instructions Recorded Ondansetron [Zofran ODT] 4 mg PO Q8HR PRN #15 tab 03/13/20 Allergies Allergy/AdvReac Type Severity Reaction Status Date / Time butalbital [From Fioricet] Allergy Unknown Verified 03/13/20 10:35 caffeine [From Fioricet] Allergy Unknown Verified 03/13/20 10:35 Fish Containing Products Allergy Unknown Verified 03/13/20 10:35 [Fish] pineapple Allergy Unknown Verified 03/13/20 09:30 shellfish derived [Shellfish] Allergy Unknown Verified 03/13/20 10:35 succinylcholine Allergy Unknown Verified 03/13/20 09:30 [Succinylcholine] tree nut Allergy Unknown Verified 03/13/20 10:35 Review of Systems ROS Statement: Those systems with pertinent positive or pertinent negative responses have been documented in the HPI. ROS Other: All systems not noted in ROS Statement are negative. Past Medical History Past Medical History: No Reported History Additional Past Medical History / Comment(s): MIGRAINE, BACK PAIN; POSSIBLE PROLAPSED BLADDER, ectopic History of Any Multi-Drug Resistant Organisms: None Reported, MRSA Date of last positivie culture/infection: 10/2017 MDRO Source:: left ankle Past Surgical History: Ear Surgery, Tubal Ligation Additional Past Surgical History / Comment(s): MYRINGOTOMY, SINUS SURGERY, LEEP, OVARIAN CYST SURGERY, Past Anesthesia/Blood Transfusion Reactions: Previous Problems w/ Anesthesia Additional Past Anesthesia/Blood Transfusion Reaction / Comment(s): reaction to succinylcholine Past Psychological History: No Psychological Hx Reported Smoking Status: Current every day smoker Past Alcohol Use History: Occasional Past Drug Use History: None Reported General Exam Limitations: no limitations General appearance: alert, in no apparent distress Head exam: Present: atraumatic, normocephalic, normal inspection Eye exam: Present: normal appearance, PERRL, EOMI. Absent: scleral icterus, co njunctival injection, periorbital swelling ENT exam: Present: normal exam, mucous membranes moist Neck exam: Present: normal inspection. Absent: tenderness, meningismus, lymphadenopathy Respiratory exam: Present: normal lung sounds bilaterally. Absent: respiratory distress, wheezes, rales, rhonchi, stridor Cardiovascular Exam: Present: regular rate, normal rhythm, normal heart sounds. Absent: systolic murmur, diastolic murmur, rubs, gallop, clicks GI/Abdominal exam: Present: soft, tenderness (Tenderness noted to the right lower quadrant, no left lower quadrant or upper abdominal tenderness.), normal bowel sounds. Absent: distended, guarding, rebound, rigid Expanded GI/Abdominal exam: Present: tenderness at McBurney's Point. Absent: obturator sign, heel tap sign, Mason's sign, Rovsing's sign Course Vital Signs 03/13/20 03/13/20 03/13/20 09:28 11:25 12:29 Temperature 99.0 F Pulse Rate 101 H 77 87 Respiratory 18 16 16 Rate Blood Pressure 167/88 140/100 119/76 O2 Sat by Pulse 100 100 100 Oximetry Medical Decision Making - Medical Decision Making Vitals are stable. CBC CMP is unremarkable. Lipase is within normal limits. Urinalysis is negative. Patient has a history of hysterectomy sparing ovaries. Main complaint is right lower quadrant abdominal pain with nausea. She does have tenderness in the right lower quadrant. CT abdomen and pelvis was ordered which showed findings possibly representing inflammatory bowel disease in the nondilated distal ileum in the right lower quadrant and pelvis. There was also a finding of a cystic mass on the right adnexa measuring 3.6 x 3.2 cm. I did or esther ultrasound to rule out torsion which is not evident on ultrasound. I did discuss finding of renal cyst on CT and patient is aware of this. Patient's pain is controlled at this time. At this point recommend follow-up with primary care. Patient reports that she will be able to follow up with him. If she has worsening symptoms she will return here to the emergency room. - Lab Data Result diagrams: 03/13/20 09:52 03/13/20 09:52 Lab Results 03/13/20 03/13/20 03/13/20 Range/Units 09:52 09:52 09:52 WBC 6.0 (3.8-10.6) k/uL RBC 4.41 (3.80-5.40) m/uL Hgb 14.3 (11.4-16.0) gm/dL Hct 44.4 (34.0-46.0) % MCV 100.8 H (80.0-100.0) fL MCH 32.4 (25.0-35.0) pg MCHC 32.2 (31.0-37.0) g/dL RDW 13.0 (11.5-15.5) % Plt Count 349 (150-450) k/uL Neutrophils % 56 % Lymphocytes % 35 % Monocytes % 6 % Eosinophils % 1 % Basophils % 1 % Neutrophils # 3.3 (1.3-7.7) k/uL Lymphocytes # 2.1 (1.0-4.8) k/uL Monocytes # 0.4 (0-1.0) k/uL Eosinophils # 0.1 (0-0.7) k/uL Basophils # 0.1 (0-0.2) k/uL Sodium 141 (137-145) mmol/L Potassium 4.3 (3.5-5.1) mmol/L Chloride 113 H (98-107) mmol/L Carbon Dioxide 18 L (22-30) mmol/L Anion Gap 10 mmol/L BUN 10 (7-17) mg/dL Creatinine 0.80 (0.52-1.04) mg/dL Est GFR (CKD-EPI)AfAm >90 (>60 ml/min/1.73 sqM) Est GFR (CKD-EPI)NonAf >90 (>60 ml/min/1.73 sqM) Glucose 94 (74-99) mg/dL Plasma Lactic Acid Luis (0.7-2.0) mmol/L Calcium 9.6 (8.4-10.2) mg/dL Total Bilirubin 0.4 (0.2-1.3) mg/dL AST 21 (14-36) U/L ALT 13 (4-34) U/L Alkaline Phosphatase 49 (38-126) U/L Total Protein 7.6 (6.3-8.2) g/dL Albumin 4.7 (3.5-5.0) g/dL Amylase 93 (30-110) U/L Lipase 279 (23-300) U/L Urine Color Colorless Urine Appearance Clear (Clear) Urine pH 7.0 (5.0-8.0) Ur Specific [place] 1.002 (1.001-1.035) Urine Protein Negative (Negative) Urine Glucose (UA) Negative (Negative) Urine Ketones Negative (Negative) Urine Blood Negative (Negative) Urine Nitrite Negative (Negative) Urine Bilirubin Negative (Negative) Urine Urobilinogen <2.0 (<2.0) mg/dL Ur Leukocyte Esterase Negative (Negative) 03/13/20 Range/Units 09:52 WBC (3.8-10.6) k/uL RBC (3.80-5.40) m/uL Hgb (11.4-16.0) gm/dL Hct (34.0-46.0) % MCV (80.0-100.0) fL MCH (25.0-35.0) pg MCHC (31.0-37.0) g/dL RDW (11.5-15.5) % Plt Count (150-450) k/uL Neutrophils % % Lymphocytes % % Monocytes % % Eosinophils % % Basophils % % Neutrophils # (1.3-7.7) k/uL Lymphocytes # (1.0-4.8) k/uL Monocytes # (0-1.0) k/uL Eosinophils # (0-0.7) k/uL Basophils # (0-0.2) k/uL Sodium (137-145) mmol/L Potassium (3.5-5.1) mmol/L Chloride (98-107) mmol/L Carbon Dioxide (22-30) mmol/L Anion Gap mmol/L BUN (7-17) mg/dL Creatinine (0.52-1.04) mg/dL Est GFR (CKD-EPI)AfAm (>60 ml/min/1.73 sqM) Est GFR (CKD-EPI)NonAf (>60 ml/min/1.73 sqM) Glucose (74-99) mg/dL Plasma Lactic Acid Luis 1.4 (0.7-2.0) mmol/L Calcium (8.4-10.2) mg/dL Total Bilirubin (0.2-1.3) mg/dL AST (14-36) U/L ALT (4-34) U/L Alkaline Phosphatase (38-126) U/L Total Protein (6.3-8.2) g/dL Albumin (3.5-5.0) g/dL Amylase (30-110) U/L Lipase (23-300) U/L Urine Color Urine Appearance (Clear) Urine pH (5.0-8.0) Ur Specific [place] (1.001-1.035) Urine Protein (Negative) Urine Glucose (UA) (Negative) Urine Ketones (Negative) Urine Blood (Negative) Urine Nitrite (Negative) Urine Bilirubin (Negative) Urine Urobilinogen (<2.0) mg/dL Ur Leukocyte Esterase (Negative) Disposition Clinical Impression: Ovarian cyst, Inflammation of small intestine Disposition: HOME SELF-CARE Condition: Good Instructions (If sedation given, give patient instructions): Ovarian Cyst (ED), Celiac Disease (ED), Irritable Bowel Syndrome (ED) Additional Instructions: Please follow up with primary care in 1-2 days. Review all imaging results. If you have any worsening symptoms return here to the emergency room. Prescriptions: Ondansetron [Zofran ODT] 4 mg PO Q8HR PRN #15 tab PRN Reason: Nausea Is patient prescribed a controlled substance at d/c from ED?: No Referrals: Hans Fields MD [Primary Care Provider] - 1-2 days Time of Disposition: 12:56
[2020-03-13] MEDS ORDERED: ONDANSETRON 4 MG/2 ML VIAL IVP STA (09:51)
[2020-03-13 10:04] LABS: Basophils # (A) 0.1 k/uL (0-0.2); Basophils % (A) 1 %; Eosinophils # (A) 0.1 k/uL (0-0.7); Eosinophils % (A) 1 %; HCT 44.4 % (34.0-46.0); HGB 14.3 gm/dL (11.4-16.0); Lymphocytes # (A) 2.1 k/uL (1.0-4.8); Lymphocytes % (A) 35 %; MCH 32.4 pg (25.0-35.0); MCHC 32.2 g/dL (31.0-37.0); MCV 100.8 fL (80.0-100.0); Mean Platelet Volume 8.4; Monocytes # (A) 0.4 k/uL (0-1.0); Monocytes % (A) 6 %; Neutrophils # (A) 3.3 k/uL (1.3-7.7); Neutrophils % (A) 56 %; Platelet Count 349 k/uL (150-450); RBC 4.41 m/uL (3.80-5.40)
[2020-03-13 10:06] LABS: Appearance,Urine Clear (Clear); Bilirubin,Urine Negative (Negative); Blood,Urine Negative (Negative); Color,Urine Colorless; Glucose,Urine (UA) Negative (Negative); Ketones,Urine Negative (Negative); Leukocyte Esterase,Urine Negative (Negative); Nitrite,Urine Negative (Negative); Protein,Urine Negative (Negative); Specific Gravity,Urine 1.002 (1.001-1.035); Urobilinogen,Urine <2.0 mg/dL (<2.0)
[2020-03-13 10:16] LABS: Albumin 4.7 g/dL (3.5-5.0); Amylase 93 U/L (30-110); Chloride 113 mmol/L (98-107); Glucose 94 mg/dL (74-99); Potassium 4.3 mmol/L (3.5-5.1); Total Protein 7.6 g/dL (6.3-8.2)
[2020-03-13 10:17] LABS: ALT 13 U/L (4-34); AST 21 U/L (14-36); African American GFR (CKD) >90 (>60 ml/min/1.73 sqM); Alkaline Phosphatase 49 U/L (38-126); Anion Gap 10 mmol/L; Blood Urea Nitrogen 10 mg/dL (7-17); Calcium 9.6 mg/dL (8.4-10.2); Carbon Dioxide 18 mmol/L (22-30); Non-African American GFR(CKD) >90 (>60 ml/min/1.73 sqM); Sodium 141 mmol/L (137-145); Total Bilirubin 0.4 mg/dL (0.2-1.3)
[2020-03-13] MEDS ORDERED: HYDROmorphone 0.5 MG/0.5 ML SYRINGE IVP STA (11:07)
[2020-03-13] MEDS ORDERED: diphenhydrAMINE 50 MG/ML 1 ML VIAL IVP STA (11:07)
[2020-03-13] MEDS ORDERED: METOCLOPRAMIDE 5 MG/ML 2 ML VIAL IVP STA (11:07)
--- NOTE | 2020-03-13 11:13 | CT ---
EXAMINATION TYPE: CT abdomen pelvis w con DATE OF EXAM: 03/13/2020 COMPARISON: CT abdomen pelvis 09/27/2018 HISTORY: RLQ pain CT DLP: 665.4 mGycm Automated exposure control for dose reduction was used. TECHNIQUE: Helical acquisition of images was performed from the lung bases through the pelvis. CONTRAST: Performed without Oral Contrast and with IV Contrast, patient injected with 100 ml mL of Isovue 300. FINDINGS: LUNG BASES: Normal. LIVER: Normal. BILIARY SYSTEM: Normal. PANCREAS: Normal. SPLEEN: Normal. ADRENALS: Normal. KIDNEYS: No hydronephrosis. Too small to characterize hypodense lesion of the left kidney. There is a hypodense lesion of the right renal upper pole with Hounsfield units of 44, measuring 1.4 x 1.9 cm, with 1 or 2 thin 1 mm enhancing septations (201:34)., This is decreased in size versus 09/27/2018 delvin rison when it measured 2.3 x 2.3 cm (201:38) with more fluid dense Hounsfield units of 12. BOWEL: No evidence of obstruction. There is somewhat prominent thickening and mucosal enhancement of the distal ileum within the pelvis and right lower quadrant, with no evidence of surrounding inflamm atory reaction. PERITONEUM: No free air is visualized. Trace pelvic free fluid. ADENOPATHY: No lymphadenopathy. PELVIS: Normal urinary bladder. Status post hysterectomy. Within the right adnexa there is a septated cystic structure measuring up to 3.6 x 3.2 cm (201:69), decreased in size versus 09/27/2018 when it me asured 5.5 x 3.9 cm. Left adnexa normal. VASCULATURE: No abdominal aortic aneurysm. MUSCULOSKELETAL: No acute osseous abnormality. IMPRESSION: 1. Mildly prominent mucosal thickness and mucosal enhancement of the nondilated distal ileum small darin wel loops within the pelvis and right lower quadrant. Findings may represent inflammatory bowel disea se, as this is within the same region involved on 09/27/2018 CT comparison. Differential includes infec tious enteritis. 2. Multiseptated cystic mass of the right adnexa is mildly decreased in size versus 09/27/2018 CT delvin rison. Findings may represent ovarian cysts, if patient still has ovaries status post hysterectomy. C orrelate with surgical history. 3. Indeterminate septated right renal cyst is decreased in size and increased in density versus 019. Findings may represent hemorrhagic/proteinaceous cyst, and are likely benign given decrease in s ize.
[2020-03-13 11:26] VITALS: RESP 16
--- NOTE | 2020-03-13 12:10 | US ---
EXAMINATION TYPE: US transvaginal DATE OF EXAM: 03/13/2020 COMPARISON: CT abdomen pelvis 03/13/2020 and 09/27/2018. Ultrasound pelvis 10/13/2018, 05/03/2018, 018, 06/01/2017. CLINICAL HISTORY: cyst, r/o torsion. Pain partial hysterectomy TECHNIQUE: Transvaginal (TV EXAM MEASUREMENTS: Uterus: Surgically absent Right Ovary: 4.2 x 2.5 x 2.6 cm 1. Uterus: Surgically absent. 2. Endometrium: Surgically absent. 3. Right Ovary: Complex area seen 2.2 x 1.4 x 1.7 cm. 4. Left Ovary: Obscured by overlying bowel gas. Spectral, color and waveform doppler imaging shows good arterial and venous flow within the right o vary; there is no evidence for ovarian torsion. 5. Bilateral Adnexa: Trace free fluid within the right adnexa. Left adnexa normal. 6. Posterior cul-de-sac: Normal. IMPRESSION: 1. Right ovary with 2.2 cm multiseptated cystic lesion, which is decreased in size versus 09/27/2018 CT comparison. No evidence of right ovarian torsion. 2. Left ovary obscured by overlying bowel gas. 3. Trace right pelvic free fluid. 4. Uterus surgically absent.
[2020-03-13 12:29] VITALS: BP 119/76; PULSE 87
== END 2020-03-13 13:02 | disposition home or self-care (01) ==
LOC: EC 09:27
DX: N83.201 Unspecified ovarian cyst, right side (principal); K52.9 Noninfective gastroenteritis and colitis, unspecified; F17.200 Nicotine dependence, unspecified, uncomplicated; Z79.899 Other long term (current) drug therapy; Z91.048 Other nonmedicinal substance allergy status; Z88.8 Allergy status to other drugs, medicaments and biological substances; Z91.013 Allergy to seafood; Z91.018 Allergy to other foods
CPT/HCPCS: 36415; 80053; 82150; 83605; 83690; 85025; 81003; 93976; 76830; 74177; 99284; 96374; 96375 ×4; 96361; J1200; J2765; J2405; J1885; J1170; Q9967

== ENCOUNTER 2020-05-01 08:12 | Day surgery (SDC) | payer OTHER ==
[2020-04-27 10:20] VITALS: BMI 24.7
[~2020-05-01 08:12] MED LIST changes: -DEXAMETHASONE SOD PHOSPHATE 10 MG/ML 1 ML VIAL IV ONE; +LACTATED RINGERS 1,000 ML IV SCH; -LIDOCAINE 1% 20 ML VIAL (10MG/ML) FOR IV START INTRADERMA PRN; -MIDAZOLAM (PF) 2 MG/2 ML VIAL IV PRN; -ceFAZolin IN SWFI 2 GM/20 ML SYRINGE IVP ONE; -fentaNYL (PF) 50 MCG/ML 2 ML AMP IV PRN
[2020-05-01 08:38] VITALS: RESP 16; TEMP 98.5
[2020-05-01] MEDS ORDERED: ONDANSETRON 4 MG/2 ML VIAL IVP ONE (08:38)
[2020-05-01] MEDS ORDERED: LIDOCAINE 1% (10MG/ML) FOR IV START INTRADERMA ONE (08:38)
[2020-05-01] MEDS ORDERED: ONDANSETRON 4 MG/2 ML VIAL ONE (08:40)
[2020-05-01] MEDS ORDERED: MIDAZOLAM 2 MG/2 ML VIAL ONE (08:57)
[2020-05-01] MEDS ORDERED: fentaNYL (PF) 50 MCG/ML 2 ML AMP ONE (08:57)
[2020-05-01] MEDS ORDERED: PROPOFOL 10 MG/ML 20 ML VIAL IV ONE (08:57)
[2020-05-01] MEDS ORDERED: LIDOCAINE 1% INJ 10MG/ML (20 ML MDV) ONE (08:57)
--- NOTE | 2020-05-01 09:32 | P.PCN ---
Date of Procedure: 05/01/20 Description of Procedure: Brief history: Patient is a pleasant scheduled for an elective upper endoscopy as well as colonoscopy as a part of evaluation of epigastric abdominal pain and right lower quadrant abdominal pain. Patient has symptoms of pain, altered bowel function with frequent loose bowel movements with associated urgency. Procedure performed: Esophagogastroduodenoscopy with biopsy Colonoscopy with biopsy Estimated blood loss: Minimal. Preoperative diagnosis: Epigastric abdominal pain, right lower quadrant abdominal pain, altered bowel function, nausea Anesthesia: MAC Procedure: After informed consent was obtained from the patient was brought into the endoscopy unit and IV sedation was administered by anesthesia under continuous monitoring. Initially upper endoscopy was done. The Olympus GF 190 video endoscope was inserted into the mouth and esophagus intubated without any difficulty and was gradually advanced into the stomach and duodenum and carefully examined. The bulb and second part of the duodenum appeared normal, with biopsies taken to rule out celiac sprue. The scope was then withdrawn into the stomach adequately insufflated with air and upon careful examination the antrum and body, cardia and fundus appeared normal, mild scattered erythema in the antrum and body was noted with biopsies taken to rule out H. pylori. The scope was then withdrawn into the esophagus. The GE junction was located at 38 cm to the incisors and biopsies. It appeared regular with no erythema erosions or ulcerations. Rest of the esophagus appeared normal. Patient tolerated the procedure well. At this time the patient continued to remain sedation. Initial digital rectal examination was normal. Olympus CF 190 video colonoscope was then inserted into the rectum and gradually advanced to the cecum without any difficulty. Careful examination was performed as the scope was gradually being withdrawn. The prep was excellent. The cecum, ascending colon, transverse colon, descending colon, sigmoid colon and rectum appeared normal, with biopsies taken of the right and left colon in the setting of altered bowel function. Retroflexion was performed in the rectum and no lesions were noted, located at. Patient tolerated the procedure well. Impression: 1. Mild gastritis. Biopsies of the duodenum, antrum and body and GE junction. 2. Normal-appearing colon from rectum to cecum, with random biopsies taken of the right and left colon in the setting of altered bowel function. Internal hemorrhoids. Recommendations: Findings of this examination were discussed with the patient as well as her family. Okay to resume diet. Okay to resume medications. Await pathology from biopsies. Follow up in GI clinic as scheduled for results of biopsies and further management.
[2020-05-01 09:48] VITALS: BP 113/75; PULSE 63
== END 2020-05-01 10:04 | disposition home or self-care (01) ==
LOC: ORWHC2ENDO 08:12
PROVIDERS: ATTEND Internal Medicine
DX: R19.4 Change in bowel habit (principal); K64.8 Other hemorrhoids; K29.50 Unspecified chronic gastritis without bleeding; F17.200 Nicotine dependence, unspecified, uncomplicated; Z98.51 Tubal ligation status; Z98.890 Other specified postprocedural states; Z88.5 Allergy status to narcotic agent; Z79.899 Other long term (current) drug therapy; Z91.018 Allergy to other foods; Z91.013 Allergy to seafood; Z88.8 Allergy status to other drugs, medicaments and biological substances
CPT/HCPCS: 88305; 45380; 43239; J2250; J2405; J2001; J3010; J2704

== ENCOUNTER 2021-04-20 23:40 | Emergency (ER) | payer OTHER ==
[2021-04-20 23:56] VITALS: BP 133/89; PULSE 77; RESP 18; TEMP 97.7
[2021-04-21] MEDS ORDERED: SODIUM CHLORIDE 0.9% 1,000 ML IV STA (00:04)
[2021-04-21] MEDS ORDERED: ONDANSETRON 4 MG/2 ML VIAL IVP STA (00:04)
[2021-04-21] MEDS ORDERED: KETOROLAC 15 MG/ML 1 ML VIAL IVP STA (00:04)
--- NOTE | 2021-04-21 00:21 | XR ---
EXAMINATION TYPE: XR KUB DATE OF EXAM: 04/21/2021 COMPARISON: 09/24/2018 HISTORY: Abdominal pain TECHNIQUE: 2 views FINDINGS: Bowel gas pattern is normal. There is no sign of intestinal obstruction or pneumoperitoneum . Fecal pattern is normal. There is no sign of a mass. There are no pathologic calcifications over th e kidneys. Lung bases are clear. IMPRESSION: Nonacute abdomen. No adverse change.
[2021-04-21 00:27] LABS: Basophils # (A) 0.1 k/uL (0-0.2); Basophils % (A) 1 %; Eosinophils # (A) 0.2 k/uL (0-0.7); Eosinophils % (A) 1 %; HCT 37.6 % (34.0-46.0); HGB 12.9 gm/dL (11.4-16.0); Lymphocytes # (A) 3.7 k/uL (1.0-4.8); Lymphocytes % (A) 33 %; MCH 35.6 pg (25.0-35.0); MCHC 34.4 g/dL (31.0-37.0); MCV 103.6 fL (80.0-100.0); Macrocytosis Slight; Mean Platelet Volume 8.2; Monocytes # (A) 0.4 k/uL (0-1.0); Monocytes % (A) 4 %; Neutrophils # (A) 6.9 k/uL (1.3-7.7); Neutrophils % (A) 60 %; Platelet Count 314 k/uL (150-450); RBC 3.63 m/uL (3.80-5.40); RDW 12.1 % (11.5-15.5); WBC 11.4 k/uL (3.8-10.6)
[2021-04-21 00:43] LABS: ALT 15 U/L (4-34); AST 23 U/L (14-36); African American GFR (CKD) >90 (>60 ml/min/1.73 sqM); Albumin 4.5 g/dL (3.5-5.0); Alkaline Phosphatase 57 U/L (38-126); Amylase 110 U/L (30-110); Anion Gap 10 mmol/L; Blood Urea Nitrogen 7 mg/dL (7-17); Calcium 9.5 mg/dL (8.4-10.2); Carbon Dioxide 22 mmol/L (22-30); Chloride 106 mmol/L (98-107); Glucose 89 mg/dL (74-99); Lipase 568 U/L (23-300); Non-African American GFR(CKD) >90 (>60 ml/min/1.73 sqM); Potassium 3.5 mmol/L (3.5-5.1); Sodium 138 mmol/L (137-145); Total Bilirubin 0.2 mg/dL (0.2-1.3); Total Protein 7.3 g/dL (6.3-8.2)
[2021-04-21 00:46] LABS: Appearance,Urine Clear (Clear); Bilirubin,Urine Negative (Negative); Blood,Urine Negative (Negative); Color,Urine Colorless; Glucose,Urine (UA) Negative (Negative); Ketones,Urine Negative (Negative); Leukocyte Esterase,Urine Negative (Negative); Nitrite,Urine Negative (Negative); PH, Urine 5.5 (5.0-8.0); Protein,Urine Negative (Negative); Specific Gravity,Urine 1.002 (1.001-1.035); Urobilinogen,Urine <2.0 mg/dL (<2.0)
--- NOTE | 2021-04-21 01:22 | CT ---
EXAMINATION TYPE: CT abdomen pelvis w con DATE OF EXAM: 04/21/2021 COMPARISON: 03/13/2020 HISTORY: pain CT DLP: 630.3 mGycm Automated exposure control for dose reduction was used. CONTRAST: Performed with IV Contrast, patient injected with 100 mL of Isovue 300. Lung bases are clear. There is no pleural effusion. Heart size is normal. There is no pericardial eff usion. Liver spleen stomach pancreas gallbladder appear normal. The bile ducts are not dilated. There is no adrenal mass. Kidneys show satisfactory contrast opacification. There is no hydronephrosi s. There is 2 cm cortical cyst anterior right kidney. Ureters are not dilated. Delayed images show no rmal renal excretion. There is no retroperitoneal adenopathy. Bladder distends smoothly. There is no inguinal hernia. There is small amount of free fluid in the pelvis. There is hysterectomy. Lumbar vertebra have normal alignment. Disc spaces are fairly normal. Posterior elements are intact. There is no compression fracture. Bony pelvis is intact. The hip joints are intact. There is no mesenteric edema. There is no ascites or free air. There is no bowel obstruction. Appendi x appears normal. IMPRESSION: There is small amount of free fluid in the pelvis similar to old exam. Normal appendix. I do not see evidence for inflammatory bowel disease.
--- NOTE | 2021-04-21 01:28 | ED ---
Abdominal Pain HPI - General Chief Complaint: Abdominal Pain Stated Complaint: LT flank pain Time Seen by Provider: 04/20/21 23:57 Source: patient, RN notes reviewed Mode of arrival: ambulatory Limitations: no limitations - History of Present Illness Initial Comments: Patient is a 35-year-old female that presents to emergency department complaining of lower abdominal pain. She notes that it started early yesterday afternoon. She notes that there was no alleviating or aggravating factors. She noted that movement at first but pain go away but quit after a while. She notes that she did have some discomfort on urination. She notes that she does not have a history of kidney stones kidney infections. She denied any nausea vomiting diarrhea or constipation. She was otherwise well-appearing. She denied chest pain shortness of breath headache fever fatigue chills. - Related Data Home Medications Medication Instructions Recorded Confirmed Topiramate [Topamax] 100 mg PO DAILY 04/08/18 04/27/20 FLUoxetine HCL [PROzac] 40 mg PO DAILY 03/13/20 04/27/20 Previous Rx's Medication Instructions Recorded Ondansetron [Zofran ODT] 4 mg PO Q8HR PRN #15 tab 03/13/20 Allergies Allergy/AdvReac Type Severity Reaction Status Date / Time butalbital [From Fioricet] Allergy Unknown Verified 04/20/21 23:56 caffeine [From Fioricet] Allergy Unknown Verified 04/20/21 23:56 Fish Containing Products Allergy Unknown Verified 04/20/21 23:56 [Fish] pineapple Allergy Unknown Verified 04/20/21 23:56 shellfish derived [Shellfish] Allergy Unknown Verified 04/20/21 23:56 succinylcholine Allergy Unknown Verified 04/20/21 23:56 [Succinylcholine] tree nut Allergy Unknown Verified 04/20/21 23:56 Review of Systems ROS Statement: Those systems with pertinent positive or pertinent negative responses have been documented in the HPI. ROS Other: All systems not noted in ROS Statement are negative. Past Medical History Past Medical History: No Reported History Additional Past Medical History / Comment(s): MIGRAINES, OCCASIONAL BACK PAIN, having Colonoscopy & EGD to diagnose Chron's. History of Any Multi-Drug Resistant Organisms: MRSA Date of last positivie culture/infection: 10/2017 MDRO Source:: left ankle Past Surgical History: Ear Surgery, Tubal Ligation Additional Past Surgical History / Comment(s): MYRINGOTOMY, SINUS SURGERY, LEEP, OVARIAN CYST SURGERY, partial hysterectomy. Past Anesthesia/Blood Transfusion Reactions: Family History of Problems w/ Anesthesia Additional Past Anesthesia/Blood Transfusion Reaction / Comment(s): Grandfather had reaction to Succinylcholine. Pt tested postive to test for reaction to Succinylcholine. Past Psychological History: Depression Smoking Status: Current every day smoker Past Alcohol Use History: Occasional Past Drug Use History: None Reported - Past Family History Mother Family Medical History: No Reported History General Exam Limitations: no limitations General appearance: alert, in no apparent distress Head exam: Present: atraumatic, normocephalic, normal inspection Eye exam: Present: normal appearance, PERRL, EOMI. Absent: scleral icterus, conjunctival injection, periorbital swelling ENT exam: Present: normal exam, mucous membranes moist Neck exam: Present: normal inspection Respiratory exam: Present: normal lung sounds bilaterally. Absent: respiratory distress, wheezes, rales, rhonchi, stridor Cardiovascular Exam: Present: regular rate, normal rhythm, normal heart sounds. Absent: systolic murmur, diastolic murmur, rubs, gallop, clicks GI/Abdominal exam: Present: soft, tenderness (Left lower quadrant), normal bowel sounds. Absent: distended, guarding, rebound, rigid Extremities exam: Present: normal inspection, full ROM, normal capillary refill. Absent: tenderness, pedal edema, joint swelling, calf tenderness Neurological exam: Present: alert, oriented X3 Psychiatric exam: Present: normal affect, normal mood Skin exam: Present: warm, dry, intact, normal color. Absent: rash Course Vital Signs 04/20/21 23:54 Temperature 97.7 F Pulse Rate 77 Respiratory 18 Rate Blood Pressure 133/89 O2 Sat by Pulse 97 Oximetry Medical Decision Making - Medical Decision Making 35-year-old female complaining of lower abdominal pain times one. Labs, KUB, 15 mg Toradol, 4 mg of Zofran ordered. Labs unremarkable. KUB shows nonacute abdomen. CT of the abdomen and pelvis ordered due to continued discomfort. Computed tomography scan negative for any appendicitis or inflammatory bowel disease, minimal free fluid in the pelvis. Given labs and imaging patient most likely experiencing generalized abdominal pain. We'll need to follow-up with GI specialist Case discussed with Dr. Grimes, patient can discharge home with follow-up to primary care. - Lab Data Result diagrams: 04/21/21 00:11 04/21/21 00:11 Lab Results 04/21/21 04/21/21 04/21/21 Range/Units 00:11 00:11 00:11 WBC 11.4 H (3.8-10.6) k/uL RBC 3.63 L (3.80-5.40) m/uL Hgb 12.9 (11.4-16.0) gm/dL Hct 37.6 (34.0-46.0) % MCV 103.6 H (80.0-100.0) fL MCH 35.6 H (25.0-35.0) pg MCHC 34.4 (31.0-37.0) g/dL RDW 12.1 (11.5-15.5) % Plt Count 314 (150-450) k/uL MPV 8.2 Neutrophils % 60 % Lymphocytes % 33 % Monocytes % 4 % Eosinophils % 1 % Basophils % 1 % Neutrophils # 6.9 (1.3-7.7) k/uL Lymphocytes # 3.7 (1.0-4.8) k/uL Monocytes # 0.4 (0-1.0) k/uL Eosinophils # 0.2 (0-0.7) k/uL Basophils # 0.1 (0-0.2) k/uL Macrocytosis Slight Sodium (137-145) mmol/L Potassium (3.5-5.1) mmol/L Chloride (98-107) mmol/L Carbon Dioxide (22-30) mmol/L Anion Gap mmol/L BUN (7-17) mg/dL Creatinine (0.52-1.04) mg/dL Est GFR (CKD-EPI)AfAm (>60 ml/min/1.73 sqM) Est GFR (CKD-EPI)NonAf (>60 ml/min/1.73 sqM) Glucose (74-99) mg/dL Calcium (8.4-10.2) mg/dL Total Bilirubin (0.2-1.3) mg/dL AST (14-36) U/L ALT (4-34) U/L Alkaline Phosphatase (38-126) U/L Total Protein (6.3-8.2) g/dL Albumin (3.5-5.0) g/dL Amylase (30-110) U/L Lipase (23-300) U/L Urine Color Colorless Urine Appearance Clear (Clear) Urine pH 5.5 (5.0-8.0) Ur Specific [place] 1.002 (1.001-1.035) Urine Protein Negative (Negative) Urine Glucose (UA) Negative (Negative) Urine Ketones Negative (Negative) Urine Blood Negative (Negative) Urine Nitrite Negative (Negative) Urine Bilirubin Negative (Negative) Urine Urobilinogen <2.0 (<2.0) mg/dL Ur Leukocyte Esterase Negative (Negative) Urine HCG, Qual Not Detected (Not Detectd) 04/21/21 Range/Units 00:11 WBC (3.8-10.6) k/uL RBC (3.80-5.40) m/uL Hgb (11.4-16.0) gm/dL Hct (34.0-46.0) % MCV (80.0-100.0) fL MCH (25.0-35.0) pg MCHC (31.0-37.0) g/dL RDW (11.5-15.5) % Plt Count (150-450) k/uL MPV Neutrophils % % Lymphocytes % % Monocytes % % Eosinophils % % Basophils % % Neutrophils # (1.3-7.7) k/uL Lymphocytes # (1.0-4.8) k/uL Monocytes # (0-1.0) k/uL Eosinophils # (0-0.7) k/uL Basophils # (0-0.2) k/uL Macrocytosis Sodium 138 (137-145) mmol/L Potassium 3.5 (3.5-5.1) mmol/L Chloride 106 (98-107) mmol/L Carbon Dioxide 22 (22-30) mmol/L Anion Gap 10 mmol/L BUN 7 (7-17) mg/dL Creatinine 0.83 (0.52-1.04) mg/dL Est GFR (CKD-EPI)AfAm >90 (>60 ml/min/1.73 sqM) Est GFR (CKD-EPI)NonAf >90 (>60 ml/min/1.73 sqM) Glucose 89 (74-99) mg/dL Calcium 9.5 (8.4-10.2) mg/dL Total Bilirubin 0.2 (0.2-1.3) mg/dL AST 23 (14-36) U/L ALT 15 (4-34) U/L Alkaline Phosphatase 57 (38-126) U/L Total Protein 7.3 (6.3-8.2) g/dL Albumin 4.5 (3.5-5.0) g/dL Amylase 110 (30-110) U/L Lipase 568 H (23-300) U/L Urine Color Urine Appearance (Clear) Urine pH (5.0-8.0) Ur Specific [place] (1.001-1.035) Urine Protein (Negative) Urine Glucose (UA) (Negative) Urine Ketones (Negative) Urine Blood (Negative) Urine Nitrite (Negative) Urine Bilirubin (Negative) Urine Urobilinogen (<2.0) mg/dL Ur Leukocyte Esterase (Negative) Urine HCG, Qual (Not Detectd) - Radiology Data Radiology results: report reviewed, image reviewed CT of the abdomen and pelvis: There is a small amount of free fluid in the pelvis similar to old exam. Normal appendix. I do not see evidence for inflammatory bowel disease. KUB: Nonacute abdomen. Disposition Clinical Impression: Abdominal pain Disposition: HOME SELF-CARE Condition: Stable Instructions (If sedation given, give patient instructions): Abdominal Pain (ED) Additional Instructions: Please return to the Emergency Department if symptoms worsen or any other concerns. Follow-up with primary care in 1-2 days. Follow-up with GI specialist as needed. Take Tylenol Motrin as needed for pain. Is patient prescribed a controlled substance at d/c from ED?: No Referrals: Hans Fields MD [Primary Care Provider] - 1-2 days Time of Disposition: 01:30
== END 2021-04-21 01:50 | disposition home or self-care (01) ==
LOC: EC 23:40
DX: R10.32 Left lower quadrant pain (principal); I25.2 Old myocardial infarction; F17.200 Nicotine dependence, unspecified, uncomplicated; Z91.013 Allergy to seafood; Z91.018 Allergy to other foods; Z88.8 Allergy status to other drugs, medicaments and biological substances; Z79.899 Other long term (current) drug therapy
CPT/HCPCS: 36415; 80053; 82150; 83690; 85025; 81003; 81025; 74018; 74177; 96374; 96375; 96361; 99284; J2405; J1885; Q9967

== ENCOUNTER 2021-05-02 09:47 | Emergency (ER) | payer OTHER ==
[2021-05-02 10:03] VITALS: BP 125/86; TEMP 98.7
[2021-05-02] MEDS ORDERED: ONDANSETRON 4 MG/2 ML VIAL IVP STA (10:22)
[2021-05-02] MEDS ORDERED: SODIUM CHLORIDE 0.9% 500 ML 500 ML IV STA (10:22)
[2021-05-02] MEDS ORDERED: KETOROLAC 15 MG/ML 1 ML VIAL IVP STA (10:22)
[2021-05-02 10:49] VITALS: PULSE 94; RESP 18
[2021-05-02 10:53] LABS: Basophils # (A) 0.1 k/uL (0-0.2); Basophils % (A) 1 %; Eosinophils % (A) 1 %; HCT 42.8 % (34.0-46.0); HGB 14.3 gm/dL (11.4-16.0); Lymphocytes # (A) 2.1 k/uL (1.0-4.8); Lymphocytes % (A) 29 %; MCH 33.6 pg (25.0-35.0); MCHC 33.3 g/dL (31.0-37.0); MCV 100.7 fL (80.0-100.0); Mean Platelet Volume 8.2; Monocytes # (A) 0.4 k/uL (0-1.0); Monocytes % (A) 5 %; Neutrophils # (A) 4.4 k/uL (1.3-7.7); Neutrophils % (A) 62 %; Platelet Count 449 k/uL (150-450); RBC 4.25 m/uL (3.80-5.40); RDW 12.9 % (11.5-15.5); WBC 7.1 k/uL (3.8-10.6)
--- NOTE | 2021-05-02 10:54 | ED ---
Back Pain HPI - General Chief Complaint: Back Pain/Injury Stated Complaint: Lower Back Pain Time Seen by Provider: 05/02/21 10:06 Source: patient, RN notes reviewed Mode of arrival: ambulatory Limitations: no limitations - History of Present Illness Initial Comments: Patient is a 35-year-old female presenting to the emergency Department with complaints of left flank pain that started suddenly this morning. She states it is intermittent. She was here a few weeks ago for similar complaint, they did do labs, urine and a CT, all revealed no acute findings. She did follow up with her doctor stated that her symptoms were concerning for kidney stone and if she had the symptoms again to come back to the ER. She does admit to some nausea, she took a Zofran this morning with only minimal improvement in the nausea. She denies any fevers or chills, no chest pain or shortness of breath. She states the pain is in the left flank, with some mild radiation towards the left side. She denies being secondary to hysterectomy. She has no further complaints. Her vitals are stable upon arrival. - Related Data Home Medications Medication Instructions Recorded Confirmed Topiramate [Topamax] 100 mg PO DAILY 04/08/18 04/27/20 FLUoxetine HCL [PROzac] 40 mg PO DAILY 03/13/20 04/27/20 Previous Rx's Medication Instructions Recorded Ondansetron [Zofran ODT] 4 mg PO Q8HR PRN #15 tab 03/13/20 Ketorolac [Toradol] 10 mg PO Q8HR #15 tab 05/02/21 Ondansetron Odt [Zofran Odt] 4 mg PO Q8HR PRN #10 tab 05/02/21 Allergies Allergy/AdvReac Type Severity Reaction Status Date / Time butalbital [From Fioricet] Allergy Unknown Verified 05/02/21 10:03 caffeine [From Fioricet] Allergy Unknown Verified 05/02/21 10:03 Fish Containing Products Allergy Unknown Verified 05/02/21 10:03 [Fish] pineapple Allergy Unknown Verified 05/02/21 10:03 shellfish derived [Shellfish] Allergy Unknown Verified 05/02/21 10:03 succinylcholine Allergy Unknown Verified 05/02/21 10:03 [Succinylcholine] tree nut Allergy Unknown Verified 05/02/21 10:03 Review of Systems ROS Statement: Those systems with pertinent positive or pertinent negative responses have been documented in the HPI. ROS Other: All systems not noted in ROS Statement are negative. Past Medical History Past Medical History: No Reported History Additional Past Medical History / Comment(s): MIGRAINES, OCCASIONAL BACK PAIN History of Any Multi-Drug Resistant Organisms: MRSA Date of last positivie culture/infection: 10/2017 MDRO Source:: left ankle Past Surgical History: Ear Surgery, Tubal Ligation Additional Past Surgical History / Comment(s): MYRINGOTOMY, SINUS SURGERY, LEEP, OVARIAN CYST SURGERY, partial hysterectomy. Past Anesthesia/Blood Transfusion Reactions: Family History of Problems w/ Anesthesia Additional Past Anesthesia/Blood Transfusion Reaction / Comment(s): Grandfather had reaction to Succinylcholine. Pt tested postive to test for reaction to Succinylcholine. Past Psychological History: Depression Smoking Status: Current every day smoker Past Alcohol Use History: Occasional Past Drug Use History: None Reported - Past Family History Mother Family Medical History: No Reported History General Exam - General Exam Comments Initial Comments: GENERAL: Patient is well-developed and well-nourished. Patient is nontoxic and in no acute distress. HEAD: Atraumatic, normocephalic. EYES: Pupils equal round and reactive to light, extraocular movements intact, sclera anicteric, conjunctiva are normal. Eyelids were unremarkable. ENT: Moist mucous membranes. NECK: Normal range of motion, supple without lymphadenopathy or JVD. LUNGS: Unlabored respirations. Breath sounds clear to auscultation bilaterally and equal. No wheezes rales or rhonchi. HEART: Regular rate and rhythm without murmurs, rubs or gallops. ABDOMEN: Soft, nontender, normoactive bowel sounds. No guarding, no rebound. No masses appreciated. MUSCULOSKELETAL: Normal extremities with adequate strength and normal range of motion, no pitting or edema. No clubbing or cyanosis. Mild left flank pain on palpation. NEUROLOGICAL: Patient is alert and oriented x 3. SKIN: Warm, Dry, normal turgor, no rashes or lesions noted. Limitations: no limitations Course Vital Signs 05/02/21 05/02/21 10:01 10:48 Temperature 98.7 F Pulse Rate 122 H 94 Respiratory 20 18 Rate Blood Pressure 125/86 O2 Sat by Pulse 96 100 Oximetry Medical Decision Making - Medical Decision Making Patient is a 35-year-old female here with left flank pain that started suddenly this morning. She had similar symptoms a couple weeks ago, was evaluated here, no acute findings were found. Her vitals are stable. Labs are within normal limits, urine shows no evidence of hematuria, no infection. Ultrasound of ki dneys and bladder reveals a 2 mm nonobstructive left renal calculus, no hydronephrosis. There is also a left ovarian cyst seen. I discussed these findings with the patient. Recommended following up with urology. She is agreeable splenic care and she is stable for discharge. - Lab Data Result diagrams: 05/02/21 10:34 05/02/21 10:34 Lab Results 05/02/21 05/02/21 05/02/21 Range/Units 10:34 10:34 10:34 WBC 7.1 (3.8-10.6) k/uL RBC 4.25 (3.80-5.40) m/uL Hgb 14.3 (11.4-16.0) gm/dL Hct 42.8 (34.0-46.0) % MCV 100.7 H (80.0-100.0) fL MCH 33.6 (25.0-35.0) pg MCHC 33.3 (31.0-37.0) g/dL RDW 12.9 (11.5-15.5) % Plt Count 449 (150-450) k/uL MPV 8.2 Neutrophils % 62 % Lymphocytes % 29 % Monocytes % 5 % Eosinophils % 1 % Basophils % 1 % Neutrophils # 4.4 (1.3-7.7) k/uL Lymphocytes # 2.1 (1.0-4.8) k/uL Monocytes # 0.4 (0-1.0) k/uL Eosinophils # 0.0 (0-0.7) k/uL Basophils # 0.1 (0-0.2) k/uL Sodium 139 (137-145) mmol/L Potassium 4.1 (3.5-5.1) mmol/L Chloride 108 H (98-107) mmol/L Carbon Dioxide 20 L (22-30) mmol/L Anion Gap 11 mmol/L BUN 8 (7-17) mg/dL Creatinine 0.78 (0.52-1.04) mg/dL Est GFR (CKD-EPI)AfAm >90 (>60 ml/min/1.73 sqM) Est GFR (CKD-EPI)NonAf >90 (>60 ml/min/1.73 sqM) Glucose 86 (74-99) mg/dL Calcium 9.6 (8.4-10.2) mg/dL Total Bilirubin 0.5 (0.2-1.3) mg/dL AST 20 (14-36) U/L ALT 15 (4-34) U/L Alkaline Phosphatase 51 (38-126) U/L Total Protein 7.6 (6.3-8.2) g/dL Albumin 4.7 (3.5-5.0) g/dL Urine Color Light Yellow Urine Appearance Clear (Clear) Urine pH 6.5 (5.0-8.0) Ur Specific [place] 1.004 (1.001-1.035) Urine Protein Negative (Negative) Urine Glucose (UA) Negative (Negative) Urine Ketones Negative (Negative) Urine Blood Negative (Negative) Urine Nitrite Negative (Negative) Urine Bilirubin Negative (Negative) Urine Urobilinogen <2.0 (<2.0) mg/dL Ur Leukocyte Esterase Negative (Negative) Disposition Clinical Impression: Renal colic on left side, Left renal stone Disposition: HOME SELF-CARE Condition: Stable Instructions (If sedation given, give patient instructions): Kidney Stones (ED) Additional Instructions: Please return to the Emergency Department if symptoms worsen or any other co ncerns. May take Toradol and/or Zofran home for her symptoms. May alternate with Tylenol. Please follow-up with urology. Prescriptions: Ketorolac [Toradol] 10 mg PO Q8HR #15 tab Ondansetron Odt [Zofran Odt] 4 mg PO Q8HR PRN #10 tab PRN Reason: Nausea Is patient prescribed a controlled substance at d/c from ED?: No Referrals: Hans Fields MD [Primary Care Provider] - 1-2 days Neil Jensen MD [STAFF PHYSICIAN] - 1-2 days Time of Disposition: 12:08
[2021-05-02 11:10] LABS: ALT 15 U/L (4-34); AST 20 U/L (14-36); African American GFR (CKD) >90 (>60 ml/min/1.73 sqM); Albumin 4.7 g/dL (3.5-5.0); Alkaline Phosphatase 51 U/L (38-126); Anion Gap 11 mmol/L; Appearance,Urine Clear (Clear); Bilirubin,Urine Negative (Negative); Blood Urea Nitrogen 8 mg/dL (7-17); Blood,Urine Negative (Negative); Calcium 9.6 mg/dL (8.4-10.2); Carbon Dioxide 20 mmol/L (22-30); Chloride 108 mmol/L (98-107); Color,Urine Light Yellow; Glucose 86 mg/dL (74-99); Glucose,Urine (UA) Negative (Negative); Ketones,Urine Negative (Negative); Leukocyte Esterase,Urine Negative (Negative); Nitrite,Urine Negative (Negative); Non-African American GFR(CKD) >90 (>60 ml/min/1.73 sqM); PH, Urine 6.5 (5.0-8.0); Potassium 4.1 mmol/L (3.5-5.1); Protein,Urine Negative (Negative); Sodium 139 mmol/L (137-145); Specific Gravity,Urine 1.004 (1.001-1.035); Total Bilirubin 0.5 mg/dL (0.2-1.3); Total Protein 7.6 g/dL (6.3-8.2); Urobilinogen,Urine <2.0 mg/dL (<2.0)
[2021-05-02] MEDS ORDERED: MORPHINE SULFATE 2 MG/ML SYRINGE IVP ONE (11:21)
--- NOTE | 2021-05-02 11:31 | US ---
EXAMINATION TYPE: US kidneys/renal and bladder DATE OF EXAM: 05/02/2021 COMPARISON: CT 04/21/2021 and 03/13/2020 CLINICAL HISTORY: 35-year-old female left flank pain. TECHNIQUE: Multiple sonographic images of the kidneys and bladder are obtained. FINDINGS: EXAM MEASUREMENTS: Right Kidney: 9.6x5.9x4.6 cm Left Kidney: 10.0x5.4x5.2 cm No hydronephrosis on either side. Right Kidney: Superior/ Med hypoechoic lesion 1.4x1.3x1.2cm, unchanged from CT back to 03/13/2020 Left Kidney: Tiny 2 mm midpole echogenic focus with twinkle artifact. Bladder: Under distention limits evaluation. Bilateral Jets seen: No Clinical Investigator notes: Incidental Left ovarian cysts noted, patient no longer has right ovary or uterus. Complex/hemorrhagic cyst versus solid mass measuring 2.8x2.3x2.8cm (versus 3.7 cm on 04/21/2021) and simple cyst= 2.8x2.9x3.0cm (versus 2.3 cm on 04/21/2021) Left ovary= 5.2x3.9x3.3cm IMPRESSION: 1. A benign, debris-filled 1.4 cm cyst upper pole right kidney unchanged back to at least 03/13/2020. 2. Tiny 2 mm nonobstructive left renal calculus. 3. No hydronephrosis. 4. A couple lesions within the left ovary redemonstrated. The complex/hemorrhagic cyst versus solid m ass is slightly smaller at 2.8 cm versus 3.7 cm previously. A cyst measures 2.9 cm and is slightly in creased versus 2.3 cm, previously. Follow-up ultrasound in 6-8 weeks to assess for involution. If the findings persist, further MR evaluation may be needed.
== END 2021-05-02 12:53 | disposition home or self-care (01) ==
LOC: EC 09:47
DX: N20.0 Calculus of kidney (principal); R11.0 Nausea; G43.909 Migraine, unspecified, not intractable, without status migrainosus; F17.200 Nicotine dependence, unspecified, uncomplicated; Z79.899 Other long term (current) drug therapy; Z91.013 Allergy to seafood; Z91.018 Allergy to other foods; Z88.8 Allergy status to other drugs, medicaments and biological substances
CPT/HCPCS: 99284 ×2; 96374 ×2; 96375 ×2; 36415; 80053; 85025; 81003; 76770; J2405; J2270; J1885

== ENCOUNTER 2021-10-15 20:02 | Emergency (ER) | payer OTHER ==
[2021-10-15 20:11] VITALS: RESP 18; TEMP 98.3
[2021-10-15] MEDS ORDERED: MORPHINE SULFATE 4 MG/ML SYRINGE IV STA (20:26)
[2021-10-15] MEDS ORDERED: diphenhydrAMINE 50 MG/ML 1 ML VIAL IVP STA (20:26)
[2021-10-15] MEDS ORDERED: SODIUM CHLORIDE 0.9% 1,000 ML IV STA (20:26)
[2021-10-15] MEDS ORDERED: ONDANSETRON ODT 8 MG TAB.RAPDIS PO STA (20:26)
[2021-10-15] MEDS ORDERED: KETOROLAC 15 MG/ML 1 ML VIAL IVP STA (20:26)
[2021-10-15] MEDS ORDERED: ONDANSETRON 4 MG/2 ML VIAL IVP STA (21:08)
[2021-10-15 21:14] LABS: Basophils % (A) 0 %; Eosinophils # (A) 0.1 k/uL (0-0.7); Eosinophils % (A) 2 %; HCT 40.8 % (34.0-46.0); HGB 13.4 gm/dL (11.4-16.0); Lymphocytes # (A) 1.7 k/uL (1.0-4.8); Lymphocytes % (A) 28 %; MCH 33.8 pg (25.0-35.0); MCHC 32.8 g/dL (31.0-37.0); Macrocytosis Slight; Mean Platelet Volume 8.5; Monocytes # (A) 0.3 k/uL (0-1.0); Monocytes % (A) 4 %; Neutrophils # (A) 3.9 k/uL (1.3-7.7); Neutrophils % (A) 64 %; Platelet Count 363 k/uL (150-450); RBC 3.96 m/uL (3.80-5.40); WBC 6.2 k/uL (3.8-10.6)
[2021-10-15 21:26] LABS: ALT 14 U/L (4-34); AST 22 U/L (14-36); African American GFR (CKD) >90 (>60 ml/min/1.73 sqM); Albumin 4.1 g/dL (3.5-5.0); Alkaline Phosphatase 49 U/L (38-126); Amylase 85 U/L (30-110); Anion Gap 8 mmol/L; Blood Urea Nitrogen 9 mg/dL (7-17); Calcium 8.7 mg/dL (8.4-10.2); Carbon Dioxide 21 mmol/L (22-30); Chloride 110 mmol/L (98-107); Glucose 94 mg/dL (74-99); Lipase 145 U/L (23-300); Non-African American GFR(CKD) >90 (>60 ml/min/1.73 sqM); Potassium 4.2 mmol/L (3.5-5.1); Sodium 139 mmol/L (137-145); Total Bilirubin 0.4 mg/dL (0.2-1.3); Total Protein 6.9 g/dL (6.3-8.2)
[2021-10-15 21:29] LABS: Appearance,Urine Clear (Clear); Bilirubin,Urine Negative (Negative); Blood,Urine Negative (Negative); Color,Urine Yellow; Glucose,Urine (UA) Negative (Negative); Leukocyte Esterase,Urine Negative (Negative); Nitrite,Urine Negative (Negative); PH, Urine 7.5 (5.0-8.0); Protein,Urine Negative (Negative)
[2021-10-15 21:30] LABS: Ketones,Urine 3+ (Negative)
--- NOTE | 2021-10-15 21:46 | XR ---
EXAMINATION TYPE: XR KUB DATE OF EXAM: 10/15/2021 9:27 PM INDICATION: Patient age:Female; 36 years old; Reason for study: abdominal pain. COMPARISON: Abdominal radiograph 04/21/2021 TECHNIQUE: One radiographic view of the abdomen was obtained. FINDINGS: The bowel gas pattern is nonspecific without dilated loops of small or large bowel. There i s no evidence for organomegaly or pneumoperitoneum. The osseous structures are intact. No abnormal calcifications are present. Fecal material and gas are demonstrated throughout the colon and rectum. IMPRESSION: Nonspecific bowel gas pattern without radiographic evidence for acute process.
--- NOTE | 2021-10-15 22:09 | US ---
EXAMINATION TYPE: US renals and bladder DATE OF EXAM: 10/15/2021 COMPARISON: CT 2020, Renal US 2020 CLINICAL HISTORY: eval for left sided stone/hydronephrosis. Left flank pain, left abdominal/pelvic pa in EXAM MEASUREMENTS: Right Kidney: 10.1 x 3.5 x 4.9 cm Left Kidney: 10.5 x 4.9 x 5.3 cm Right Kidney: Anechoic focus mid pole measuring 1.3 x 0.8 x 1.3 cm Left Kidney: No hydronephrosis or masses seen Bladder: Anechoic, not fully distended There is no evidence for hydronephrosis at this point in time. No nephrolithiasis is seen. No radha s are identified. The urinary bladder is anechoic. Bilateral ureteral jets are seen. Clinic Lead notes: uterus and right ovary surgically absent. Incidental finding - left ovary hemorr hagic cyst versus solid mass measuring 2.6 x 3.2 x 2.6 cm. No vascularity within. IMPRESSION: No evidence for left-sided hydronephrosis or renal calculus. Left ovarian complex cyst suggested measuring up to 3.2 cm could represent hemorrhagic cyst. This can be further evaluated with pelvic ultrasound if clinically warranted. Consider follow-up ultrasound i n 6-8 weeks to ensure resolution.
[2021-10-15] MEDS ORDERED: MORPHINE SULFATE 4 MG/ML SYRINGE IVP STA (22:17)
--- NOTE | 2021-10-15 22:47 | ED ---
General Adult HPI - General Chief complaint: Abdominal Pain Stated complaint: Abdominal Pain/Kidney Stones Time Seen by Provider: 10/15/21 20:13 Source: patient, RN notes reviewed, old records reviewed Mode of arrival: wheelchair - History of Present Illness Initial comments: Patient is a 36-year-old female with past medical history remarkable for prior kidney stones presents emergency Department complaining of left flank pain over concern for kidney stones. Prescription for flank pain as sharp. States it radiates towards her groin. States it has been present for at least one day, worse throughout the day today. States she may not be having as much active urination. Denies any blood in her urine. Denies any vaginal discharge or bleeding. Denies any history of STDs. Denies any chest pain, shortness of breath. His no other acute complaints at this time. Is concerned she may have a kidney stone. States she is not .Denies diarrhea. Endorses nausea bu t no vomiting. - Related Data Home Medications Medication Instructions Recorded Confirmed Topiramate [Topamax] 100 mg PO DAILY 04/08/18 10/15/21 FLUoxetine HCL [PROzac] 40 mg PO DAILY 03/13/20 10/15/21 Ondansetron [Zofran ODT] 4 mg PO BID PRN 10/15/21 10/15/21 busPIRone HCl [Buspar] 10 mg PO BID 10/15/21 10/15/21 Previous Rx's Medication Instructions Recorded Ondansetron Odt [Zofran Odt] 4 mg PO Q8HR PRN 3 Days #9 tab 10/15/21 Allergies Allergy/AdvReac Type Severity Reaction Status Date / Time butalbital [From Fioricet] Allergy Unknown Verified 10/15/21 20:45 caffeine [From Fioricet] Allergy Unknown Verified 10/15/21 20:45 Fish Containing Products Allergy Unknown Verified 10/15/21 20:45 [Fish] pineapple Allergy Unknown Verified 10/15/21 20:45 shellfish derived [Shellfish] Allergy Unknown Verified 10/15/21 20:45 succinylcholine Allergy Unknown Verified 10/15/21 20:45 [Succinylcholine] tree nut Allergy Unknown Verified 10/15/21 20:45 Review of Systems ROS Statement: Those systems with pertinent positive or pertinent negative responses have been documented in the HPI. Review of Systems: CONST: Denies fever EYES: Denies blurry vision ENT: Denies nasal congestion C/V: Denies Chest pain RESP: Denies shortness of breath GI: Endorses abdominal pain : Denies dysuria SKIN: Denies rash. MSK: Denies joint pain. NEURO: Denies headache ROS Other: All systems not noted in ROS Statement are negative. Past Medical History Past Medical History: No Reported History Additional Past Medical History / Comment(s): MIGRAINES, OCCASIONAL BACK PAIN History of Any Multi-Drug Resistant Organisms: MRSA Date of last positivie culture/infection: 10/2017 MDRO Source:: left ankle Past Surgical History: Ear Surgery, Tubal Ligation Additional Past Surgical History / Comment(s): MYRINGOTOMY, SINUS SURGERY, LEEP, OVARIAN CYST SURGERY, partial hysterectomy. Past Anesthesia/Blood Transfusion Reactions: Family History of Problems w/ Anesthesia Additional Past Anesthesia/Blood Transfusion Reaction / Comment(s): Grandfather had reaction to Succinylcholine. Pt tested postive to test for reaction to Succinylcholine. Past Psychological History: Depression Smoking Status: Current every day smoker Past Alcohol Use History: Occasional Past Drug Use History: None Reported - Past Family History Mother Family Medical History: No Reported History General Exam - General Exam Comments Initial Comments: General: Appears in mild distress secondary to abdominal pain. HEAD: Normal with no signs of head trauma. EYES: PERRLA, EOMI, conjunctiva normal, no discharge. ENT: Hearing grossly intact, normal oropharynx. RESPIRATORY: Clear breath sounds bilaterally. No wheezes, rales, or rhonchi. C/V: Regular rate and rhythm. S1 and S2 auscultated, no edema, peripheral pulses 2+ and intact throughout ABD: Abdomen soft, nondistended. Patient's flank tenderness to palpation. No anterior abdominal tenderness to palpation. No CVA tenderness to percussion. No guarding. No peritoneal signs. No rebound tenderness. EXT: Normal range of motion, no obvious deformity SKIN: No rashes or lesions observed on exposed skin. NEURO: Alert and oriented 4. Course Vital Signs 10/15/21 10/15/21 20:05 22:55 Temperature 98.3 F Pulse Rate 74 84 Respiratory 18 18 Rate Blood Pressure 135/88 119/72 O2 Sat by Pulse 100 100 Oximetry Medical Decision Making - Medical Decision Making Based on the patient's presentation and physical exam, I'm concerned for acute intra-abdominal process for the patient. We will obtain abdominal laboratory studies as well as start the patient off with a renal ultrasound as well as KUB x-ray. She'll be symptomatically treated as well as given a 1 L fluid bolus. She was in agreement this plan. Laboratory studies were remarkable for 3+ ketones on urinalysis. Otherwise labs are unremarkable. Patient is not . Renal ultrasound showed no signs of left-sided hydronephrosis or renal calculus. There is a left ovarian complex cyst uterus and right ovary are surgically absent. KUB x-ray showed no acute intra-abdominal process. On reevaluation, patient was updated on the results of laboratory studies and imaging. She expressed understanding. However due to continued pain, did offer a CT imaging which she accepted. CT abdomen and pelvis revealed a left-sided ovarian cyst. With nonspecific pelvic fluid. No other findings at this time. I discussed the findings with the patient. I believe it is safe for her to be discharged home at this time. She was in agreement with this plan. Strict return precautions are provided. - Lab Data Result diagrams: 10/15/21 21:06 10/15/21 21:06 Lab Results 10/15/21 10/15/21 10/15/21 Range/Units 21:06 21:06 21:06 WBC 6.2 (3.8-10.6) k/uL RBC 3.96 (3.80-5.40) m/uL Hgb 13.4 (11.4-16.0) gm/dL Hct 40.8 (34.0-46.0) % MCV 103.0 H (80.0-100.0) fL MCH 33.8 (25.0-35.0) pg MCHC 32.8 (31.0-37.0) g/dL RDW 13.0 (11.5-15.5) % Plt Count 363 (150-450) k/uL MPV 8.5 Neutrophils % 64 % Lymphocytes % 28 % Monocytes % 4 % Eosinophils % 2 % Basophils % 0 % Neutrophils # 3.9 (1.3-7.7) k/uL Lymphocytes # 1.7 (1.0-4.8) k/uL Monocytes # 0.3 (0-1.0) k/uL Eosinophils # 0.1 (0-0.7) k/uL Basophils # 0.0 (0-0.2) k/uL Macrocytosis Slight Sodium 139 (137-145) mmol/L Potassium 4.2 (3.5-5.1) mmol/L Chloride 110 H (98-107) mmol/L Carbon Dioxide 21 L (22-30) mmol/L Anion Gap 8 mmol/L BUN 9 (7-17) mg/dL Creatinine 0.78 (0.52-1.04) mg/dL Est GFR (CKD-EPI)AfAm >90 (>60 ml/min/1.73 sqM) Est GFR (CKD-EPI)NonAf >90 (>60 ml/min/1.73 sqM) Glucose 94 (74-99) mg/dL Calcium 8.7 (8.4-10.2) mg/dL Total Bilirubin 0.4 (0.2-1.3) mg/dL AST 22 (14-36) U/L ALT 14 (4-34) U/L Alkaline Phosphatase 49 (38-126) U/L Total Protein 6.9 (6.3-8.2) g/dL Albumin 4.1 (3.5-5.0) g/dL Amylase 85 (30-110) U/L Lipase 145 (23-300) U/L Urine Color Yellow Urine Appearance Clear (Clear) Urine pH 7.5 (5.0-8.0) Ur Specific [place] 1.020 (1.001-1.035) Urine Protein Negative (Negative) Urine Glucose (UA) Negative (Negative) Urine Ketones 3+ H (Negative) Urine Blood Negative (Negative) Urine Nitrite Negative (Negative) Urine Bilirubin Negative (Negative) Urine Urobilinogen 2.0 (<2.0) mg/dL Ur Leukocyte Esterase Negative (Negative) Urine HCG, Qual (Not Detectd) 10/15/21 Range/Units 21:06 WBC (3.8-10.6) k/uL RBC (3.80-5.40) m/uL Hgb (11.4-16.0) gm/dL Hct (34.0-46.0) % MCV (80.0-100.0) fL MCH (25.0-35.0) pg MCHC (31.0-37.0) g/dL RDW (11.5-15.5) % Plt Count (150-450) k/uL MPV Neutrophils % % Lymphocytes % % Monocytes % % Eosinophils % % Basophils % % Neutrophils # (1.3-7.7) k/uL Lymphocytes # (1.0-4.8) k/uL Monocytes # (0-1.0) k/uL Eosinophils # (0-0.7) k/uL Basophils # (0-0.2) k/uL Macrocytosis Sodium (137-145) mmol/L Potassium (3.5-5.1) mmol/L Chloride (98-107) mmol/L Carbon Dioxide (22-30) mmol/L Anion Gap mmol/L BUN (7-17) mg/dL Creatinine (0.52-1.04) mg/dL Est GFR (CKD-EPI)AfAm (>60 ml/min/1.73 sqM) Est GFR (CKD-EPI)NonAf (>60 ml/min/1.73 sqM) Glucose (74-99) mg/dL Calcium (8.4-10.2) mg/dL Total Bilirubin (0.2-1.3) mg/dL AST (14-36) U/L ALT (4-34) U/L Alkaline Phosphatase (38-126) U/L Total Protein (6.3-8.2) g/dL Albumin (3.5-5.0) g/dL Amylase (30-110) U/L Lipase (23-300) U/L Urine Color Urine Appearance (Clear) Urine pH (5.0-8.0) Ur Specific [place] (1.001-1.035) Urine Protein (Negative) Urine Glucose (UA) (Negative) Urine Ketones (Negative) Urine Blood (Negative) Urine Nitrite (Negative) Urine Bilirubin (Negative) Urine Urobilinogen (<2.0) mg/dL Ur Leukocyte Esterase (Negative) Urine HCG, Qual Not Detected (Not Detectd) Disposition Clinical Impression: Abdominal pain of unknown etiology, Ovarian cyst Disposition: HOME SELF-CARE Condition: Good Instructions (If sedation given, give patient instructions): Abdominal Pain (ED) Prescriptions: Ondansetron Odt [Zofran Odt] 4 mg PO Q8HR PRN 3 Days #9 tab PRN Reason: Nausea Is patient prescribed a controlled substance at d/c from ED?: No Referrals: Hans Fields MD [Primary Care Provider] - 1-2 days
--- NOTE | 2021-10-15 22:50 | CT ---
EXAMINATION TYPE: CT abdomen pelvis w con DATE OF EXAM: 10/15/2021 COMPARISON: 04/21/2021 HISTORY: LLQ pain CT DLP: 599.3 mGycm Automated exposure control for dose reduction was used. CONTRAST: Performed with IV Contrast, patient injected with 100 mL of Isovue 300. Images obtained from the diaphragm to the floor the pelvis with IV contrast. The lung bases are clear. There is no pleural effusion. Heart size is normal. There is no pericardial effusion. Liver spleen stomach pancreas and gallbladder appear intact. The bile ducts are not dilate d. There is no adrenal mass. Kidneys show satisfactory contrast opacification. There is no hydronephrosi s. Ureters are not dilated. Bladder distends smoothly. There is no inguinal hernia. No evidence of a solid pelvic mass. There is low-density free fluid in the pelvis. There is hysterectomy. The appendix is posterior and appears normal. There is no mesenteric edema. No ascites. No evidence o f free air. Lumbar vertebra have normal alignment. No compression fracture. Bony pelvis is intact. The hip joints are intact. There is probably a 2.8 cm cyst on the left ovary. IMPRESSION: There is low-density free fluid in the pelvis. Left ovarian cyst. Normal appendix. Fluid in the pelvi s is slightly increased but has lower attenuation compared to old exam.
[2021-10-15 22:56] VITALS: BP 119/72; PULSE 84
== END 2021-10-15 23:23 | disposition home or self-care (01) ==
LOC: EC 20:02
DX: R10.9 Unspecified abdominal pain (principal); F17.200 Nicotine dependence, unspecified, uncomplicated; Z88.5 Allergy status to narcotic agent; Z91.018 Allergy to other foods; Z91.013 Allergy to seafood; Z88.4 Allergy status to anesthetic agent
CPT/HCPCS: 99284; 96374; 96375; 96376; 96361; 36415; 80053; 82150; 83690; 85025; 81003; 81025; 74018; 76770; 74177; J2270; J1200; J2405; J1885; Q9967

== ENCOUNTER → 2022-07-29 | Outpatient (CLI) | payer OTHER ==
--- NOTE | 2022-07-30 09:01 | MM ---
Reason for Exam: Screening (asymptomatic). Last mammogram was performed 2 year(s) and 11 month(s) ago. Patient History: Menarche at age 12. First Full-Term at age 20. Hysterectomy at age 32. Patient used Hormonal Contraceptives for 2 years. Maternal grandmother had breast cancer. Paternal aunt had breast cancer, age 45. Paternal aunt had breast cancer. Risk Values: Agata 5 year model risk: 0.4%. NCI Lifetime model risk: 9.2%. Prior Study Comparison: 08/11/2019 Bilateral Diagnostic Mammogram, [facility]. Tissue Density: There are scattered fibroglandular densities. Findings: Analyzed By CAD. There is no suspicious group of microcalcifications or new suspicious mass in either breast. Overall Assessment: Negative, BI-RAD 1 Management: Screening Mammogram of both breasts in 1 year. A clinical breast exam by your physician is recommended on an annual basis and results should be correlated with mammographic findings. [facility] will attempt to contact patient to return for supplemental views and ultrasound if indicated. Electronically signed and approved by: Zack Mahoney DO
== END | disposition home or self-care (01) ==
LOC: RADMAMWWP 16:11
PROVIDERS: ATTEND Family Medicine
DX: Z12.31 Encounter for screening mammogram for malignant neoplasm of breast (principal); Z80.3 Family history of malignant neoplasm of breast
CPT/HCPCS: 77067

== ENCOUNTER → 2022-09-25 | Outpatient (CLI) | payer OTHER ==
--- NOTE | 2022-09-25 09:45 | USB ---
Reason for Exam: Clinical finding. Patient History: Menarche at age 12. First Full-Term at age 20. Hysterectomy at age 32. Patient used Hormonal Contraceptives for 2 years. Maternal grandmother had breast cancer. Paternal aunt had breast cancer, age 45. Paternal aunt had breast cancer. Risk Values: Agata 5 year model risk: 0.4%. NCI Lifetime model risk: 9.1%. Technique: Method: Targeted. Patient Position: Supine. Prior Study Comparison: 08/11/2019 Bilateral Diagnostic Mammogram, [facility]. 07/29/2022 Bilateral MG screening mammo w CAD, [facility]. Findings: The whole breast of both breasts, the axilla of both breasts and the retroareolar of both breasts were scanned. Imaged: Ultrasound imaging of: Bilateral All 4 quadrants, the retroareolar region and axilla. No evidence for organizing fluid collection or mass. Overall Assessment: Negative, BI-RAD 1 Management: Screening Mammogram of both breasts. Clinical management for patient's symptoms. A clinical breast exam by your physician is recommended on an annual basis and results should be correlated with mammographic findings. This exam should not preclude additional follow-up of suspicious palpable abnormalities. Results were given to the patient verbally at the time of exam. Electronically signed and approved by: Zack Mahoney DO
[2022-09-25 18:23] LABS: Basophils # (A) 0.06 X 10*3/uL (0.00-0.10); Basophils % (A) 1.3 %; Eosinophils # (A) 0.06 X 10*3/uL (0.04-0.35); Eosinophils % (A) 1.3 %; HCT 35.2 % (37.2-46.3); HGB 11.3 g/dL (12.0-15.0); Immature Grans, Automated 0 %; Lymphocytes # (A) 2.49 X 10*3/uL (0.90-5.00); Lymphocytes % (A) 53.5 %; MCHC 32.1 g/dL (32.0-37.0); MCV 96.4 fL (80.0-97.0); Mean Platelet Volume 9.7 fL (9.5-12.2); Monocytes # (A) 0.31 X 10*3/uL (0.20-1.00); Monocytes % (A) 6.7 %; NRBC Per 100 WBC 0 /100 WBCS (0.0-0.0); Neutrophils # (A) 1.73 X 10*3/uL (1.80-7.70); Neutrophils % (A) 37.2 %; Platelet Count 270 X 10*3/uL (140-440); RBC 3.65 X 10*6/uL (4.10-5.20); RDW 12.3 % (11.5-14.5); WBC 4.65 X 10*3/uL (4.50-10.00)
[2022-09-25 18:36] LABS: African American GFR (CKD) 83.4 (60.0-200.0); Anion Gap 9.2 mmol/L (10.00-18.00); BUN/Creat Ratio 16.2 Ratio (12.00-20.00); Blood Urea Nitrogen 16.1 mg/dL (9.0-27.0); Calcium 9.4 mg/dL (8.7-10.3); Carbon Dioxide 26.8 mmol/L (20.0-27.5); Non-African American GFR(CKD) 71.9 (60.0-200.0); Potassium 4.5 mmol/L (3.5-5.5)
== END | disposition home or self-care (01) ==
LOC: RADUSWWP 09:04
PROVIDERS: ATTEND Family Medicine
DX: N64.52 Nipple discharge (principal); Z80.3 Family history of malignant neoplasm of breast
CPT/HCPCS: 36415; 80048; 84443; 85025

== ENCOUNTER 2023-10-17 17:04 | Emergency (ER) | payer OTHER ==
--- NOTE | 2023-10-17 17:41 | ED ---
General Adult HPI - General Chief complaint: Recheck/Abnormal Lab/Rx Stated complaint: Headache Time Seen by Provider: 10/17/23 17:12 Source: patient Mode of arrival: ambulatory Limitations: no limitations - History of Present Illness Initial comments: 38-year-old female with a past medical history significant for migraines and hypertension on Topamax and propranolol presenting to the ED with complaints of hypertension and headache. Patient reports history of migraines and reports that they are typically left-sided with some associated photophobia, blurred vision, and nausea. Patient reports for the past week has had a headache consistent with history of migraines. Reports that she is usually able to get her migraines to go away with medications however this week has been unable to. Additionally with history of high blood pressure she has been moderating her blood pressure and notes that it has been higher than usual. Reports that her highest blood pressure at home was in the 150s systolic which concerned her prompting presentation to the ED for further evaluation. No chest pains or shortness of breath. No abdominal pain. No changes in bowel or bladder habits. No other complaints at this time. - Related Data Home Medications Medication Instructions Recorded Confirmed Topiramate [Topamax] 100 mg PO DAILY 04/08/18 10/15/21 FLUoxetine HCL [PROzac] 40 mg PO DAILY 03/13/20 10/15/21 Ondansetron [Zofran ODT] 4 mg PO BID PRN 10/15/21 10/15/21 busPIRone HCl [Buspar] 10 mg PO BID 10/15/21 10/15/21 Previous Rx's Medication Instructions Recorded Ondansetron Odt [Zofran Odt] 4 mg PO Q8HR PRN 3 Days #9 tab 10/15/21 Allergies Allergy/AdvReac Type Severity Reaction Status Date / Time butalbital [From Fioricet] Allergy Unknown Verified 10/17/23 17:07 caffeine [From Fioricet] Allergy Unknown Verified 10/17/23 17:07 Fish Containing Products Allergy Unknown Verified 10/17/23 17:07 [Fish] pineapple Allergy Unknown Verified 10/17/23 17:07 shellfish derived [Shellfish] Allergy Unknown Verified 10/17/23 17:07 succinylcholine Allergy Unknown Verified 10/17/23 17:07 [Succinylcholine] tree nut Allergy Unknown Verified 10/17/23 17:07 Review of Systems ROS Statement: Those systems with pertinent positive or pertinent negative responses have been documented in the HPI. ROS Other: All systems not noted in ROS Statement are negative. Past Medical History Past Medical History: Hypertension Additional Past Medical History / Comment(s): MIGRAINES, OCCASIONAL BACK PAIN History of Any Multi-Drug Resistant Organisms: MRSA Date of last positivie culture/infection: 10/2017 MDRO Source:: left ankle Past Surgical History: Ear Surgery, Tubal Ligation Additional Past Surgical History / Comment(s): MYRINGOTOMY, SINUS SURGERY, LEEP, OVARIAN CYST SURGERY, partial hysterectomy. Past Anesthesia/Blood Transfusion Reactions: Family History of Problems w/ Anesthesia Additional Past Anesthesia/Blood Transfusion Reaction / Comment(s): Grandfather had reaction to Succinylcholine. Pt tested postive to test for reaction to Succinylcholine. Past Psychological History: Depression Smoking Status: Vaper Past Alcohol Use History: Occasional Past Drug Use History: None Reported - Past Family History Mother Family Medical History: No Reported History General Exam Limitations: no limitations General appearance: alert, in no apparent distress Eye exam: Present: normal appearance, PERRL, EOMI ENT exam: Present: mucous membranes moist Neck exam: Present: normal inspection Respiratory exam: Present: normal lung sounds bilaterally Cardiovascular Exam: Present: regular rate, normal rhythm GI/Abdominal exam: Present: soft Extremities exam: Present: other (Strength and sensation of bilateral upper extremities equal and intact. Radial pulses intact.) Neurological exam: Present: alert, oriented X3, CN II-XII intact Skin exam: Present: warm, dry Course Vital Signs 10/17/23 10/17/23 17:05 19:22 Temperature 98.4 F Pulse Rate 86 75 Respiratory 20 18 Rate Blood Pressure 191/128 187/111 O2 Sat by Pulse 99 98 Oximetry Medical Decision Making - Medical Decision Making Was pt. sent in by a medical professional or institution (, PA, LENS FABRICATING MACHINE TENDER, urgent care, hospital, or assisted...) When possible be specific @ -No Did you speak to anyone other than the patient for history (EMS, parent, family, police, friend...)? What history was obtained from this source @ -No Did you review nursing and triage notes (agree or disagree)? Why? @ -I reviewed and agree with nursing and triage notes Were old charts reviewed (outside hosp., previous admission, EMS record, old EKG, old radiological studies, urgent care reports/EKG's, assisted records)? Report findings @ -No old charts were reviewed Differential Diagnosis (chest pain, altered mental status, abdominal pain women, abdominal pain men, vaginal bleeding, weakness, fever, dyspnea, syncope, headache, dizziness, GI bleed, back pain, seizure, CVA, palpatations, mental health, musculoskeletal)? @ -Differential Chest Pain: Stable Angina, Unstable Angina, STEMI, NSTEMI Aortic Dissection, Pneumothorax, Musculoskeletal, Esophageal Spasm GERD, Cholecystitis, Pancreatitis, Zoster, this is not meant to be an all-inclusive list. Differential Headache: Migraine, tension, cluster, carbon monoxide, central venous thrombosis, pension karma temporal arteritis, acute closure glaucoma, intercranial hemorrhage, mastoiditis, sinusitis, head injury, this is not meant to be an all-inclusive list. EKG interpreted by me (3pts min.). @ -EKG interpreted by me showing a sinus rhythm without acute ST or T wave changes at a rate of 77 bpm. IN 175, QRS 93, QT/QTc 386/418. X-rays interpreted by me (1pt min.). @ -None done CT interpreted by me (1pt min.). @ -CT brain interpreted me which reveals no evidence of acute finding. U/S interpreted by me (1pt. min.). @ -None done What testing was considered but not performed or refused? (CT, X-rays, U/S, labs)? Why? @ -None What meds were considered but not given or refused? Why? @ -None Did you discuss the management of the patient with other professionals (professionals i.e. , PA, LENS FABRICATING MACHINE TENDER, lab, RT, psych nurse, psychosocial rehabilitation counselor, hand candle molder, teacher, hospital chief executive officer, case reviewer)? Give summary @ -No Was smoking cessation discussed for >3mins.? @ -No Was critical care preformed (if so, how long)? @ -No Were there social determinants of health that impacted care today? How? (Homelessness, low income, unemployed, alcoholism, drug addiction, transportati on, low edu. Level, literacy, decrease access to med. care, [facility], rehab)? @ -No Was there de-escalation of care discussed even if they declined (Discuss DNR or withdrawal of care, Hospice)? DNR status @ -No What co-morbidities impacted this encounter? (DM, HTN, Smoking, COPD, CAD, Cancer, CVA, ARF, Chemo, Hep., AIDS, mental health diagnosis, sleep apnea, morbid obesity)? @ -Migraines, hypertension Was patient admitted / discharged? Hospital course, mention meds given and route, prescriptions, significant lab abnormalities, going to OR and other pertinent info. @ -Discharge 38-year-old female with history of migraines and hypertension presents to the ED with complaints of headache and hypertension. Over the past week has had headache consistent with her history of migraines however reports that it has not gone away which she reports is normally does with medications at home. Also reports that due to headache has been checking her blood pressures at home and has found it to be higher than usual in the 150s systolic. Laboratory studies reviewed. Labs largely unremarkable. CT brain also was performed due to intractable headache and this revealed no evidence of acute finding. Patient provided IV fluids and analgesics here in the ED and reports significant improvement of headache. Discharged home in stable condition and advised to fol low-up with her primary care provider. Discussed return precautions with patient who verbalized agreement. Undiagnosed new problem with uncertain prognosis? @ -No Drug Therapy requiring intensive monitoring for toxicity (Heparin, Nitro, Insulin, Cardizem)? @ -No Were any procedures done? @ -No Diagnosis/symptom? @ -Headache Acute, or Chronic, or Acute on Chronic? @ -Acute Uncomplicated (without systemic symptoms) or Complicated (systemic symptoms)? @ -Uncomplicated Side effects of treatment? @ -No Exacerbation, Progression, or Severe Exacerbation? @ -No Poses a threat to life or bodily function? How? (Chest pain, USA, OR, pneumonia, PE, COPD, DKA, ARF, appy, cholecystitis, CVA, Diverticulitis, Homicidal, Suicidal, threat to staff... and all critical care pts) @ -No - Lab Data Result diagrams: 10/17/23 18:08 10/17/23 18:08 Lab Results 10/17/23 10/17/23 10/17/23 Range/Units 18:00 18:08 18:08 WBC 6.6 (3.8-10.6) k/uL RBC 3.75 L (3.80-5.40) m/uL Hgb 12.0 (11.4-16.0) gm/dL Hct 36.1 (34.0-46.0) % MCV 96.5 (80.0-100.0) fL MCH 31.9 (25.0-35.0) pg MCHC 33.1 (31.0-37.0) g/dL RDW 13.9 (11.5-15.5) % Plt Count 367 (150-450) k/uL MPV 8.2 Neutrophils % (Manual) 25 % Lymphocytes % (Manual) 65 % Monocytes % (Manual) 8 % Eosinophils % (Manual) 3 % Basophils % (Manual) 1 % Neutrophils # (Manual) 1.65 (1.3-7.7) k/uL Lymphocytes # (Manual) 4.29 (1.0-4.8) k/uL Monocytes # (Manual) 0.53 (0-1.0) k/uL Eosinophils # (Manual) 0.20 (0-0.7) k/uL Basophils # (Manual) 0.07 (0-0.2) k/uL Nucleated RBCs 0 (0-0) /100 WBC Manual Slide Review Performed PT 10.4 (10.0-12.5) sec INR 0.9 (<1.2) APTT 26.5 (22.0-30.0) sec Sodium (137-145) mmol/L Potassium (3.5-5.1) mmol/L Chloride (98-107) mmol/L Carbon Dioxide (22-30) mmol/L Anion Gap mmol/L BUN (7-17) mg/dL Creatinine (0.52-1.04) mg/dL Est GFR (CKD-EPI)AfAm (>60 ml/min/1.73 sqM) Est GFR (CKD-EPI)NonAf (>60 ml/min/1.73 sqM) Glucose (74-99) mg/dL Calcium (8.4-10.2) mg/dL Magnesium (1.6-2.3) mg/dL Total Bilirubin (0.2-1.3) mg/dL AST (14-36) U/L ALT (4-34) U/L Alkaline Phosphatase (38-126) U/L Troponin I (0.000-0.034) ng/mL Total Protein (6.3-8.2) g/dL Albumin (3.5-5.0) g/dL Urine Color Colorless Urine Appearance Clear (Clear) Urine pH 7.5 (5.0-8.0) Ur Specific [place] 1.011 (1.001-1.035) Urine Protein Negative (Negative) Urine Glucose (UA) Negative (Negative) Urine Ketones Negative (Negative) Urine Blood Negative (Negative) Urine Nitrite Negative (Negative) Urine Bilirubin Negative (Negative) Urine Urobilinogen <2.0 (<2.0) mg/dL Ur Leukocyte Esterase Negative (Negative) 10/17/23 10/17/23 Range/Units 18:08 18:08 WBC (3.8-10.6) k/uL RBC (3.80-5.40) m/uL Hgb (11.4-16.0) gm/dL Hct (34.0-46.0) % MCV (80.0-100.0) fL MCH (25.0-35.0) pg MCHC (31.0-37.0) g/dL RDW (11.5-15.5) % Plt Count (150-450) k/uL MPV Neutrophils % (Manual) % Lymphocytes % (Manual) % Monocytes % (Manual) % Eosinophils % (Manual) % Basophils % (Manual) % Neutrophils # (Manual) (1.3-7.7) k/uL Lymphocytes # (Manual) (1.0-4.8) k/uL Monocytes # (Manual) (0-1.0) k/uL Eosinophils # (Manual) (0-0.7) k/uL Basophils # (Manual) (0-0.2) k/uL Nucleated RBCs (0-0) /100 WBC Manual Slide Review PT (10.0-12.5) sec INR (<1.2) APTT (22.0-30.0) sec Sodium 143 (137-145) mmol/L Potassium 3.1 L (3.5-5.1) mmol/L Chloride 107 (98-107) mmol/L Carbon Dioxide 28 (22-30) mmol/L Anion Gap 8 mmol/L BUN 16 (7-17) mg/dL Creatinine 0.91 (0.52-1.04) mg/dL Est GFR (CKD-EPI)AfAm >90 (>60 ml/min/1.73 sqM) Est GFR (CKD-EPI)NonAf 80 (>60 ml/min/1.73 sqM) Glucose 59 L (74-99) mg/dL Calcium 8.8 (8.4-10.2) mg/dL Magnesium 1.9 (1.6-2.3) mg/dL Total Bilirubin 0.2 (0.2-1.3) mg/dL AST 26 (14-36) U/L ALT 24 (4-34) U/L Alkaline Phosphatase 52 (38-126) U/L Troponin I <0.012 (0.000-0.034) ng/mL Total Protein 6.8 (6.3-8.2) g/dL Albumin 4.2 (3.5-5.0) g/dL Urine Color Urine Appearance (Clear) Urine pH (5.0-8.0) Ur Specific [place] (1.001-1.035) Urine Protein (Negative) Urine Glucose (UA) (Negative) Urine Ketones (Negative) Urine Blood (Negative) Urine Nitrite (Negative) Urine Bilirubin (Negative) Urine Urobilinogen (<2.0) mg/dL Ur Leukocyte Esterase (Negative) Disposition Clinical Impression: Headache, Hypertension Disposition: HOME SELF-CARE Condition: Good Additional Instructions: Please return to the Emergency Department if symptoms worsen or any other c oncerns. Please follow-up with your primary care provider. Is patient prescribed a controlled substance at d/c from ED?: No Referrals: Hans Fields MD [Primary Care Provider] - 1-2 days Time of Disposition: 21:20
[2023-10-17 17:43] VITALS: TEMP 98.4
[2023-10-17 18:29] LABS: INR 0.9 (<1.2); Partial Thromboplastin Time 26.5 sec (22.0-30.0); Prothrombin Time 10.4 sec (10.0-12.5)
[2023-10-17 18:31] LABS: HCT 36.1 % (34.0-46.0); MCH 31.9 pg (25.0-35.0); MCHC 33.1 g/dL (31.0-37.0); MCV 96.5 fL (80.0-100.0); Mean Platelet Volume 8.2; Platelet Count 367 k/uL (150-450); RBC 3.75 m/uL (3.80-5.40); RDW 13.9 % (11.5-15.5); WBC 6.6 k/uL (3.8-10.6)
[2023-10-17 18:39] LABS: ALT 24 U/L (4-34); AST 26 U/L (14-36); African American GFR (CKD) >90 (>60 ml/min/1.73 sqM); Albumin 4.2 g/dL (3.5-5.0); Alkaline Phosphatase 52 U/L (38-126); Anion Gap 8 mmol/L; Blood Urea Nitrogen 16 mg/dL (7-17); Calcium 8.8 mg/dL (8.4-10.2); Carbon Dioxide 28 mmol/L (22-30); Chloride 107 mmol/L (98-107); Glucose 59 mg/dL (74-99); Magnesium 1.9 mg/dL (1.6-2.3); Non-African American GFR(CKD) 80 (>60 ml/min/1.73 sqM); Potassium 3.1 mmol/L (3.5-5.1); Sodium 143 mmol/L (137-145); Total Bilirubin 0.2 mg/dL (0.2-1.3); Total Protein 6.8 g/dL (6.3-8.2)
[2023-10-17 18:46] LABS: Basophils # (M) 0.07 k/uL (0-0.2); Lymphocytes # (M) 4.29 k/uL (1.0-4.8); Monocytes # (M) 0.53 k/uL (0-1.0); Neutrophils # (M) 1.65 k/uL (1.3-7.7); Neutrophils % (M) 25 %; Nucleated Red Blood Cells 0 /100 WBC (0-0); Total Cells Counted 200
[2023-10-17] MEDS: ONDANSETRON 4 MG/2 ML VIAL IVP STA (19:08)
[2023-10-17] MEDS: DEXAMETHASONE SOD PHOSPHATE 10 MG/ML 1 ML VIAL IVP STA (19:09)
[2023-10-17] MEDS: ACETAMINOPHEN TAB 500 MG TAB PO STA (19:10)
[2023-10-17] MEDS: MAGNESIUM SULFATE-D5W PMX 1 GM in DEXTROSE/WATER 1 100ML.BAG IVPB SCH (19:21)
[2023-10-17 19:32] LABS: Appearance,Urine Clear (Clear); Bilirubin,Urine Negative (Negative); Blood,Urine Negative (Negative); Color,Urine Colorless; Glucose,Urine (UA) Negative (Negative); Ketones,Urine Negative (Negative); Leukocyte Esterase,Urine Negative (Negative); Nitrite,Urine Negative (Negative); PH, Urine 7.5 (5.0-8.0); Protein,Urine Negative (Negative); Specific Gravity,Urine 1.011 (1.001-1.035); Urobilinogen,Urine <2.0 mg/dL (<2.0)
--- NOTE | 2023-10-17 19:33 | XR ---
EXAMINATION TYPE: XR chest 2V DATE OF EXAM: 10/17/2023 5:44 PM CLINICAL INDICATION:Female, 38 years old with history of Chest Pain; [facility] COMPARISON: None TECHNIQUE: XR chest 2V. Frontal and lateral views of the chest.. FINDINGS: Lines/Tubes/Devices: No indwelling lines are seen. Heart/mediastinum: Heart size is normal. Mediastinum appears normal. Pulmonary vascularity: Not increased, Lungs/Pleura: There is no evidence of pleural effusion, focal consolidation, or pneumothorax. Musculoskeletal: No acute osseous abnormality demonstrated in the limits of the exam. Mild S-shaped scoliosis. Straightening of the normal thoracic kyphosis on lateral view. Other findings: None. IMPRESSION: No acute cardiopulmonary abnormality.
[2023-10-17 19:39] VITALS: RESP 18
--- NOTE | 2023-10-17 20:09 | CT ---
EXAMINATION TYPE: CT brain wo con CT DLP: 1075.4 mGycm, Automated exposure control for dose reduction was used. DATE OF EXAM: 10/17/2023 7:59 PM COMPARISON: None. CLINICAL INDICATION:Female, 38 years old with history of left sided hobson, Left side HOBSON x1wk. Hx of migr aines. TECHNIQUE: Brain: Axial CT images of the brain were obtained with coronal and sagittal reformats created and rev iewed. Contrast used: None. Oral contrast used: None. FINDINGS: Extra-axial spaces: No abnormal extra-axial fluid collections. Basilar cisterns are patent. Ventricular system: Within normal limits. Cerebral parenchyma: No increased attenuation to suggest acute intraparenchymal hemorrhage. The gra y-white matter interface appears maintained. No significant atrophy. White matter unremarkable by C T. Cerebellum: No acute abnormality. Mass effect: No evidence of mass effect or midline shift. Intracranial vasculature: Unremarkable Soft tissues: No acute or concerning abnormality. Visualized orbits: Orbital contents appear grossly intact. Calvarium/osseous structures: No evidence of calvarial fracture. Paranasal sinuses and mastoid air cells: Clear. MRI is more sensitive for detecting acute processes such as infarct, and may be considered if clinica lly warranted. IMPRESSION: No acute intracranial CT abnormality.
[2023-10-17] MEDS: KETOROLAC 15 MG/ML 1 ML VIAL IVP STA (20:27)
[2023-10-17] MEDS: MORPHINE SULFATE 4 MG/ML SYRINGE IVP STA (20:27)
[2023-10-17 21:38] VITALS: BP 152/97
[2023-10-17 22:22] VITALS: PULSE 73
== END 2023-10-17 21:58 | disposition home or self-care (01) ==
LOC: EC 17:04
DX: G43.909 Migraine, unspecified, not intractable, without status migrainosus (principal); I10 Essential (primary) hypertension; F17.290 Nicotine dependence, other tobacco product, uncomplicated; Z91.013 Allergy to seafood; Z91.018 Allergy to other foods; Z88.8 Allergy status to other drugs, medicaments and biological substances
CPT/HCPCS: 99284 ×2; 96365 ×2; 96366 ×2; 96375 ×5; 36415; 93005; 80053; 83735; 84484; 85025; 85610; 85730; 81003; 71046; 70450; J2270; J1100; J2405; J3475; J1885

== ENCOUNTER → 2023-12-03 | Outpatient (CLI) | payer OTHER ==
--- NOTE | 2023-12-03 21:19 | MM ---
Reason for Exam: Screening (asymptomatic). Last mammogram was performed 1 year(s) and 5 month(s) ago. Patient History: Menarche at age 12. First Full-Term at age 20. Hysterectomy at age 32. Patient used Hormonal Contraceptives for 2 years. Maternal grandmother had breast cancer. Paternal aunt had breast cancer, age 45. Paternal aunt had breast cancer. Risk Values: Agata 5 year model risk: 0.5%. NCI Lifetime model risk: 9.1%. Prior Study Comparison: 08/11/2019 Bilateral Diagnostic Mammogram, [facility]. 07/29/2022 Bilateral MG screening mammo w CAD, [facility]. Tissue Density: The breasts are heterogeneously dense, which may obscure small masses. Findings: Analyzed By CAD. Unchanged global asymmetry lower inner quadrant left breast. There is no suspicious group of microcalcifications or new suspicious mass in either breast. Overall Assessment: Benign, BI-RAD 2 Management: Screening Mammogram of both breasts in 1 year. Surgical Consultation of both breasts. For patient's reported clear nipple discharge. Specialist referral in order to better assess if this comprises suspicious discharge that would warrant further evaluation. Patient should continue monthly self-breast exams. A clinical breast exam by your physician is recommended on an annual basis. This exam should not preclude additional follow-up of suspicious palpable abnormalities. Note on Agata scores and lifetime risk: 1. A Agata score greater than 3% is considered moderate risk. If this is the case, consider specialist referral to assess eligibility for a risk reducing agent. 2. If overall lifetime risk for the development of breast cancer is 20% or higher, the patient may qualify for future screening with alternating mammogram and breast MRI. Electronically signed and approved by: Antoinette Nelson M.D. Radiologist
== END | disposition home or self-care (01) ==
LOC: RADMAMWWP 12:38
PROVIDERS: ATTEND Family Medicine
DX: Z12.31 Encounter for screening mammogram for malignant neoplasm of breast (principal); Z80.3 Family history of malignant neoplasm of breast
CPT/HCPCS: 77067

== ENCOUNTER 2024-03-11 04:15 | Emergency (ER) | payer OTHER ==
[2024-03-11 04:24] VITALS: BP 143/99; PULSE 87; RESP 18; TEMP 98.2
--- NOTE | 2024-03-11 04:26 | ED ---
General Adult HPI - General Stated complaint: CP, Nausea Time Seen by Provider: 03/11/24 04:17 Source: patient Mode of arrival: ambulatory Limitations: no limitations - History of Present Illness Initial comments: Dictation was produced using [employer] dictation software. please excuse any grammatical, word or spelling errors. Chief Complaint: 38-year-old female presents to the emergency department with right upper quadrant pain and left flank pain History of Present Illness: Patient is a 38-year-old female presents emergency department with 1 to 2 days of right upper quadrant abdominal pain along with left flank pain. Patient states she has a history of kidney stones. She does not have any significant comorbidities. Patient states that it feels like it is in her right lower chest and right upper abdomen. Denies any nausea.. Patient history of tubal ligation. Denies any other history of abdominal surgery. Denies any fever, chills or night sweats. Patient states that the pain is shifting started to feel like it is in her left flank as well. She is not sure if she is having a kidney stone again. The ROS documented in this emergency department record has been reviewed and confirmed by me. Those systems with pertinent positive or negative responses have been documented in the HPI. All other systems are other negative and/or noncontributory. - Related Data Home Medications Medication Instructions Recorded Confirmed Topiramate [Topamax] 100 mg PO DAILY 04/08/18 10/15/21 FLUoxetine HCL [PROzac] 40 mg PO DAILY 03/13/20 10/15/21 Ondansetron [Zofran ODT] 4 mg PO BID PRN 10/15/21 10/15/21 busPIRone HCl [Buspar] 10 mg PO BID 10/15/21 10/15/21 Previous Rx's Medication Instructions Recorded Ondansetron Odt [Zofran Odt] 4 mg PO Q8HR PRN 3 Days #9 tab 10/15/21 Allergies Allergy/AdvReac Type Severity Reaction Status Date / Time butalbital [From Fioricet] Allergy Unknown Verified 03/11/24 04:23 caffeine [From Fioricet] Allergy Unknown Verified 03/11/24 04:23 Fish Containing Products Allergy Unknown Verified 03/11/24 04:23 [Fish] pineapple Allergy Unknown Verified 03/11/24 04:23 shellfish derived [Shellfish] Allergy Unknown Verified 03/11/24 04:23 succinylcholine Allergy Unknown Verified 03/11/24 04:23 [Succinylcholine] tree nut Allergy Unknown Verified 03/11/24 04:23 Review of Systems ROS Statement: Those systems with pertinent positive or pertinent negative responses have been documented in the HPI. ROS Other: All systems not noted in ROS Statement are negative. Past Medical History Past Medical History: Hypertension Additional Past Medical History / Comment(s): MIGRAINES, OCCASIONAL BACK PAIN History of Any Multi-Drug Resistant Organisms: MRSA Date of last positivie culture/infection: 10/2017 MDRO Source:: left ankle Past Surgical History: Ear Surgery, Hysterectomy, Tubal Ligation Additional Past Surgical History / Comment(s): MYRINGOTOMY, SINUS SURGERY, LEEP, OVARIAN CYST SURGERY, partial hysterectomy. Past Anesthesia/Blood Transfusion Reactions: Family History of Problems w/ Anesthesia Additional Past Anesthesia/Blood Transfusion Reaction / Comment(s): Grandfather had reaction to Succinylcholine. Pt tested postive to test for reaction to Succinylcholine. Past Psychological History: Anxiety, Depression Smoking Status: Vaper Past Alcohol Use History: Occasional Past Drug Use History: None Reported - Past Family History Mother Family Medical History: No Reported History General Exam - General Exam Comments Initial Comments: PHYSICAL EXAM: General Impression: Alert and oriented x3, mild distress secondary to pain HEENT: Normocephalic atraumatic, extra-ocular movements intact, pupils equal and reactive to light bilaterally, mucous membranes moist. Cardiovascular: Heart regular rate and rhythm Chest: Able to complete full sentences, no retractions, no tachypnea Abdomen: abdomen soft, non-tender, negative Mason sign, non-distended, no organomegaly Musculoskeletal: Pulses present and equal in all extremities, no peripheral edema Motor: no focal deficits noted Neurological: CN II-XII grossly intact, no focal motor or sensory deficits noted Skin: Intact with no visualized rashes Psych: Normal affect and mood Limitations: no limitations Course Vital Signs 03/11/24 04:17 Temperature 98.2 F Pulse Rate 87 Respiratory 18 Rate Blood Pressure 143/99 O2 Sat by Pulse 100 Oximetry EKG Findings - EKG Comments: EKG Findings:: My EKG interpretation: Ventricular rate 83, sinus rhythm, OH 176, QRS 94, QTc 411. No OH prolongation, no QTC prolongation, no ST or T-wave changes noted. Overall, this EKG is unremarkable Medical Decision Making - Medical Decision Making Was pt. sent in by a medical professional or institution (, PA, EARLY INTERVENTION SPECIALIST, urgent care, hospital, or intermediate...) When possible be specific @ -[No] Did you speak to anyone other than the patient for history (EMS, parent, family, police, friend...)? What history was obtained from this source @ -[No] Did you review nursing and triage notes (agree or disagree)? Why? @ -[I reviewed and agree with nursing and triage notes] Were old charts reviewed (outside hosp., previous admission, EMS record, old EKG, old radiological studies, urgent care reports/EKG's, intermediate records)? Report findings @ -[No old charts were reviewed] Differential Diagnosis (chest pain, altered mental status, abdominal pain women, abdominal pain men, vaginal bleeding, musculoskeletal, weakness, fever, dyspnea, syncope, headache, dizziness, GI bleed, back pain, seizure, CVA, palpatations, mental health)? @ -Differential Chest Pain: Stable Angina, Unstable Angina, STEMI, NSTEMI Aortic Dissection, Pneumothorax, Musculoskeletal, Esophageal Spasm GERD, Cholecystitis, Pancreatitis, Zoster, this is not meant to be an all-inclusive list. EKG interpreted by me (3pts min.). @ -Pending X-rays interpreted by me (1pt min.). @ -Pending CT interpreted by me (1pt min.). @ -[None done] U/S interpreted by me (1pt. min.). @ -[None done] What testing was considered but not performed or refused? (CT, X-rays, U/S, labs)? Why? @ -[None] What meds were considered but not given or refused? Why? @ -[None] Was smoking cessation discussed for >3mins.? @ -[No] Were there social determinants of health that impacted care today? How? (Homelessness, low income, unemployed, alcoholism, drug addiction, transportation, low edu. Level, literacy, decrease access to med. care, custodial, rehab)? @ -[No] Was there de-escalation of care discussed even if they declined (Discuss DNR or withdrawal of care, Hospice)? DNR status @ -[No] What co-morbidities impacted this encounter? (DM, HTN, Smoking, COPD, CAD, Cancer, CVA, ARF, Chemo, Hep., AIDS, mental health diagnosis, sleep apnea, morbid obesity)? @ -[None] Was patient admitted / discharged? Hospital course, mention meds given and route, prescriptions, significant lab abnormalities, going to OR and other pertinent info. @ -38-year-old female with right lower chest right upper abdominal pain. Vital signs are stable. Negative Mason sign. Abdomen is soft. Laboratory evaluation obtained. CBC, coag panel metabolic panel is within acceptable limits. Pending chest x-ray, abdominal ultrasound and urinalysis. I was notified by nurse at 6:45 AM that patient had left AMA from the waiting room. According to nurse patient did not want to wait any longer for any further testing. - Lab Data Result diagrams: 03/11/24 04:44 03/11/24 04:44 Lab Results 03/11/24 03/11/24 03/11/24 Range/Units 04:44 04:44 04:44 WBC 6.9 (3.8-10.6) k/uL RBC 3.85 (3.80-5.40) m/uL Hgb 12.4 (11.4-16.0) gm/dL Hct 36.8 (34.0-46.0) % MCV 95.7 (80.0-100.0) fL MCH 32.2 (25.0-35.0) pg MCHC 33.6 (31.0-37.0) g/dL RDW 12.4 (11.5-15.5) % Plt Count 376 (150-450) k/uL MPV 7.6 Neutrophils % 34 % Lymphocytes % 56 % Monocytes % 6 % Eosinophils % 1 % Basophils % 1 % Neutrophils # 2.3 (1.3-7.7) k/uL Lymphocytes # 3.9 (1.0-4.8) k/uL Monocytes # 0.4 (0-1.0) k/uL Eosinophils # 0.1 (0-0.7) k/uL Basophils # 0.0 (0-0.2) k/uL PT 10.1 (10.0-12.5) sec INR 0.9 (<1.2) APTT 24.7 (22.0-30.0) sec Sodium 141 (137-145) mmol/L Potassium 2.8 L (3.5-5.1) mmol/L Chloride 100 (98-107) mmol/L Carbon Dioxide 30 (22-30) mmol/L Anion Gap 11 mmol/L BUN 22 H (7-17) mg/dL Creatinine 1.37 H (0.52-1.04) mg/dL Est GFR (CKD-EPI)AfAm 56 (>60 ml/min/1.73 sqM) Est GFR (CKD-EPI)NonAf 49 (>60 ml/min/1.73 sqM) Glucose 68 L (74-99) mg/dL Calcium 10.3 H (8.4-10.2) mg/dL Total Bilirubin 0.3 (0.2-1.3) mg/dL Conjugated Bilirubin 0.0 (0.0-0.3) mg/dL Unconjugated Bilirubin 0.1 (0.0-1.1) mg/dL Delta Bilirubin 0.2 (0.0-0.2) mg/dL AST 29 (14-36) U/L ALT 16 (4-34) U/L Alkaline Phosphatase 47 (38-126) U/L Total Protein 8.1 (6.3-8.2) g/dL Albumin 5.1 H (3.5-5.0) g/dL Lipase 210 (23-300) U/L Disposition Clinical Impression: Abdominal pain Disposition: LEFT AGAINST MEDICAL ADVICE Referrals: None,Stated [Primary Care Provider] - 1-2 days
[2024-03-11 05:01] LABS: Basophils % (A) 1 %; Eosinophils # (A) 0.1 k/uL (0-0.7); Eosinophils % (A) 1 %; HCT 36.8 % (34.0-46.0); HGB 12.4 gm/dL (11.4-16.0); Lymphocytes # (A) 3.9 k/uL (1.0-4.8); Lymphocytes % (A) 56 %; MCH 32.2 pg (25.0-35.0); MCHC 33.6 g/dL (31.0-37.0); MCV 95.7 fL (80.0-100.0); Mean Platelet Volume 7.6; Monocytes # (A) 0.4 k/uL (0-1.0); Monocytes % (A) 6 %; Neutrophils # (A) 2.3 k/uL (1.3-7.7); Neutrophils % (A) 34 %; Platelet Count 376 k/uL (150-450); RBC 3.85 m/uL (3.80-5.40); RDW 12.4 % (11.5-15.5); WBC 6.9 k/uL (3.8-10.6)
[2024-03-11 05:18] LABS: ALT 16 U/L (4-34); AST 29 U/L (14-36); African American GFR (CKD) 56 (>60 ml/min/1.73 sqM); Albumin 5.1 g/dL (3.5-5.0); Alkaline Phosphatase 47 U/L (38-126); Anion Gap 11 mmol/L; Bilirubin, Delta 0.2 mg/dL (0.0-0.2); Bilirubin,Unconjugated 0.1 mg/dL (0.0-1.1); Blood Urea Nitrogen 22 mg/dL (7-17); Calcium 10.3 mg/dL (8.4-10.2); Carbon Dioxide 30 mmol/L (22-30); Chloride 100 mmol/L (98-107); Glucose 68 mg/dL (74-99); Lipase 210 U/L (23-300); Non-African American GFR(CKD) 49 (>60 ml/min/1.73 sqM); Potassium 2.8 mmol/L (3.5-5.1); Sodium 141 mmol/L (137-145); Total Bilirubin 0.3 mg/dL (0.2-1.3); Total Protein 8.1 g/dL (6.3-8.2)
[2024-03-11 05:24] LABS: INR 0.9 (<1.2); Partial Thromboplastin Time 24.7 sec (22.0-30.0); Prothrombin Time 10.1 sec (10.0-12.5)
== END 2024-03-11 06:36 | disposition left against medical advice (07) ==
LOC: EC 04:15
CPT/HCPCS: 36415; 80053; 82248; 83690; 85025; 85610; 85730; 93005; 99284

== ENCOUNTER → 2024-07-08 | Outpatient (CLI) | payer OTHER ==
--- NOTE | 2024-07-08 09:12 | USB ---
Reason for Exam: Clinical finding. Patient History: Menarche at age 12. First Full-Term at age 20. Hysterectomy at age 32. Patient used Hormonal Contraceptives for 2 years. Maternal grandmother had breast cancer. Paternal aunt had breast cancer, age 45. Paternal aunt had breast cancer. Risk Values: Agata 5 year model risk: 0.5%. NCI Lifetime model risk: 9.1%. Technique: Method: Whole Breast Handheld. Prior Study Comparison: 08/11/2019 Bilateral Diagnostic Mammogram, [facility]. 07/29/2022 Bilateral MG screening mammo w CAD, [facility]. 12/03/2023 Bilateral MG screening mammo w CAD, [facility]. Findings: The whole breast of both breasts, the axilla of both breasts and the retroareolar of both breasts were scanned. Technique utilized:US breast complete BILAT Image; Ultrasound imaging of: All 4 quadrants, the retroareolar region and axilla. No evidence for organizing fluid collection or mass. Finding correlate with patient's nipple discharge. Overall Assessment: Negative, BI-RAD 1 Management: Screening Mammogram of both breasts in 1 year. A clinical breast exam by your physician is recommended on an annual basis and results should be correlated with mammographic findings. This exam should not preclude additional follow-up of suspicious palpable abnormalities. Results were given to the patient verbally at the time of exam. [facility], , 07/08/2024 8:56 AM. Electronically signed and approved by: Zack Mahoney DO
--- NOTE | 2024-07-08 09:14 | MM ---
Reason for Exam: Follow-up at short interval from prior study. Last screening mammogram was performed 7 month(s) ago. Patient History: Menarche at age 12. First Full-Term at age 20. Hysterectomy at age 32. Patient used Hormonal Contraceptives for 2 years. Maternal grandmother had breast cancer. Paternal aunt had breast cancer, age 45. Paternal aunt had breast cancer. Risk Values: Agata 5 year model risk: 0.5%. NCI Lifetime model risk: 9.1%. Prior Study Comparison: 08/11/2019 Bilateral Diagnostic Mammogram, [facility]. 08/11/2019 Left Diagnostic Ultrasound, [facility]. 07/29/2022 Bilateral MG screening mammo w CAD, [facility]. 09/25/2022 Bilateral US breast BILAT, [facility]. 12/03/2023 Bilateral MG screening mammo w CAD, [facility]. Tissue Density: There are scattered areas of fibroglandular density. Findings: Analyzed By CAD. No finding to correlate with breast discharge. No new suspicious masses, calcifications or distortions. Overall Assessment: Benign, BI-RAD 2 Management: Screening Mammogram in 1 year. Results were given to the patient verbally at the time of exam. Patient should continue monthly self-breast exams. A clinical breast exam by your physician is recommended on an annual basis. This exam should not preclude additional follow-up of suspicious palpable abnormalities. Note on Agata scores and lifetime risk: 1. A Agata score greater than 3% is considered moderate risk. If this is the case, consider specialist referral to assess eligibility for a risk reducing agent. 2. If overall lifetime risk for the development of breast cancer is 20% or higher, the patient may qualify for future screening with alternating mammogram and breast MRI. [facility], , 07/08/2024 8:23 AM. Electronically signed and approved by: Zack Mahoney DO
== END | disposition home or self-care (01) ==
LOC: RADMAMWWP 08:03
PROVIDERS: ATTEND Family Medicine
DX: R92.8 Other abnormal and inconclusive findings on diagnostic imaging of breast (principal); R92.323 Mammographic fibroglandular density, bilateral breasts; Z80.3 Family history of malignant neoplasm of breast; N64.52 Nipple discharge
CPT/HCPCS: 77066; 76641; G0279; 77062